=== PATIENT | male | born 1960 | race Caucasian/White ===

== ENCOUNTER → 2017-06-03 | Outpatient (CLI) | payer BC ==
--- NOTE | 2017-06-03 14:30 | Diagnostic Imaging Report ---
PROCEDURE: US carotid duplex, bilateral. TECHNIQUE: Multiple real-time grayscale images were obtained over the carotid arteries in various projections, bilaterally. Additional duplex Doppler and color Doppler images were also obtained. INDICATION: Coronary artery disease. There is mild to moderate plaque identified in the proximal right internal carotid artery. No significant plaque in the left carotid system is identified. There are elevated velocities in the proximal right internal carotid artery reaching 182 cm/s. Both vertebral arteries demonstrate antegrade flow. IMPRESSION: Moderate right carotid plaque. Velocity measurements are consistent with approximately 60-79% diameter stenosis. Dictated by: Dictated on workstation # [id number]
== END ==
LOC: RAD 13:29
PROVIDERS: ATTEND Family Medicine
DX: I65.21 Occlusion and stenosis of right carotid artery (principal); I25.10 Atherosclerotic heart disease of native coronary artery without angina pectoris
CPT/HCPCS: 93880

== ENCOUNTER → 2017-06-19 | Outpatient (CLI) | payer BC | LOC: EDUNIT# 11:00 → CARD 11:01 | PROVIDERS: ATTEND Family Medicine | DX: I25.10 Atherosclerotic heart disease of native coronary artery without angina pectoris (principal); G45.8 Other transient cerebral ischemic attacks and related syndromes | CPT/HCPCS: 93306 ==

== ENCOUNTER → 2017-06-28 | Outpatient (CLI) | payer BC ==
[2017-06-28 08:31] LABS: BASOPHILS # (AUTO) 0.1 10^3/uL (0.0-0.1); BASOPHILS % (AUTO) 1 % (0-10); EOSINOPHILS # (AUTO) 0.5 10^3/uL (0.0-0.3); EOSINOPHILS % (AUTO) 7 % (0-10); HEMATOCRIT 33 % (40-54); HEMOGLOBIN 9.9 G/DL (13.3-17.7); LYMPHOCYTES % (AUTO) 29 % (12-44); MEAN CORPUSCULAR HEMOGLOBIN 22 PG (25-34); MEAN CORPUSCULAR HGB CONC 30 G/DL (32-36); MEAN CORPUSCULAR VOLUME 72 FL (80-99); MONOCYTES # (AUTO) 0.7 X 10^3 (0.0-1.0); MONOCYTES % (AUTO) 10 % (0-12); NEUTROPHILS # (AUTO) 3.5 X 10^3 (1.8-7.8); NEUTROPHILS % (AUTO) 52 % (42-75); PLATELET COUNT 358 10^3/uL (130-400); RED BLOOD COUNT 4.59 10^6/uL (4.35-5.85); RED CELL DISTRIBUTION WIDTH 17.7 % (10.0-14.5); WHITE BLOOD COUNT 6.7 10^3/uL (4.3-11.0)
[2017-06-28 08:54] LABS: ALANINE AMINOTRANSFERASE 17 U/L (0-55); ALBUMIN 4.3 GM/DL (3.2-4.5); ALKALINE PHOSPHATASE 81 U/L (40-136); BILIRUBIN,TOTAL 0.4 MG/DL (0.1-1.0); BUN/CREATININE RATIO 16; CALCIUM 9.1 MG/DL (8.5-10.1); CARBON DIOXIDE 25 MMOL/L (21-32); CHLORIDE 109 MMOL/L (98-107); CHOLESTEROL 102 MG/DL (< 200); CREATININE SERUM 0.91 MG/DL (0.60-1.30); GFR ESTIMATED > 60; GLUCOSE 87 MG/DL (70-105); HDL CHOLESTEROL 42 MG/DL (40-60); POTASSIUM 4.1 MMOL/L (3.6-5.0); SODIUM 142 MMOL/L (135-145); TOTAL PROTEIN 6.9 GM/DL (6.4-8.2); TRIGLYCERIDES 69 MG/DL (<150); VLDL CHOLESTEROL 14 MG/DL (5-40)
[2017-06-28 09:11] LABS: ERYTHROCYTE SEDIMENTATION RATE 20 MM/HR (0-30)
== END ==
LOC: LAB 08:12
PROVIDERS: ATTEND Internal Medicine Cardiovascular Disease
DX: I42.0 Dilated cardiomyopathy (principal); I25.10 Atherosclerotic heart disease of native coronary artery without angina pectoris; I65.23 Occlusion and stenosis of bilateral carotid arteries; Z72.0 Tobacco use
CPT/HCPCS: 36415; 80053; 80061; 83735; 83880; 84443; 85025; 85652

== ENCOUNTER → 2017-08-01 | Outpatient (CLI) | payer BC ==
[~2017-08-01] MED LIST: CATHETER FLUSH 10 ML SYR IV PRN; REGADENOSON 0.4 MG/5 ML SYR (LEXISCAN) IV ONE
[2017-08-01 09:07] VITALS: BP 131/63
[2017-08-01 09:12] VITALS: BP 128/59
--- NOTE | 2017-08-01 14:31 | STRESS TEST ---
DATE OF SERVICE: 08/01/2017 PROCEDURE: Resting and post regadenoson technetium-99m Tetrofosmin SPECT CT imaging. ORDERING PHYSICIAN: Dr. Camara. PRIMARY CARE PHYSICIAN: Dr. Zarco. CLINICAL DIAGNOSES: Coronary artery disease, dilated cardiomyopathy. DESCRIPTION: Baseline images were carried out after injection of 10.7 mCi technetium-99m Tetrofosmin. This was followed by 0.4 mg regadenoson and 28.9 mCi of technetium-99m Tetrofosmin for stress imaging. The electrocardiogram showed sinus rhythm with nonspecific ST and T-wave abnormality. The electrocardiogram did not change significantly with the regadenoson infusion. Isolated premature ventricular contractions were seen. He noted mild shortness of breath following regadenoson infusion, which resolved in a few minutes. Review of images at rest and following stress indicates a large apical perfusion defect that is fixed. Gated images showed apical dyskinesis. Left ventricular end diastolic volume is 197 mL. TID is absent (1.14). Left ventricular ejection fraction is 25%. There is global hypokinesis of left ventricle. CONCLUSIONS: 1. Large apical myocardial infarction with apical dyskinesis and no significant ischemia. 2. Global hypokinesis of left ventricle and apical dyskinesis. 3. Impairment of global left ventricular systolic function with an ejection fraction of 25%. 4. Moderately severe cardiomegaly. Job ID: [id number] DocumentID: [id number] Dictated Date: 08/01/2017 13:57:05 Assistant Professor Surgical Technology Date: 08/01/2017 14:30:36 Dictated By: ANSHU CAMARA MD, MA, FACP, FACC,
== END ==
LOC: CARD 06:50
PROVIDERS: ATTEND Internal Medicine Cardiovascular Disease
DX: I25.10 Atherosclerotic heart disease of native coronary artery without angina pectoris (principal); I42.0 Dilated cardiomyopathy; Z72.0 Tobacco use
CPT/HCPCS: 78452; 93017

== ENCOUNTER → 2017-08-02 | Outpatient (CLI) | payer BC ==
[2017-08-02 10:17] LABS: BASOPHILS # (AUTO) 0.1 10^3/uL (0.0-0.1); BASOPHILS % (AUTO) 1 % (0-10); EOSINOPHILS # (AUTO) 0.3 10^3/uL (0.0-0.3); EOSINOPHILS % (AUTO) 5 % (0-10); HEMATOCRIT 39 % (40-54); HEMOGLOBIN 11.7 G/DL (13.3-17.7); LYMPHOCYTES % (AUTO) 33 % (12-44); MEAN CORPUSCULAR HEMOGLOBIN 23 PG (25-34); MEAN CORPUSCULAR HGB CONC 30 G/DL (32-36); MEAN CORPUSCULAR VOLUME 77 FL (80-99); MEAN PLATELET VOLUME 9.6 FL (7.4-10.4); MONOCYTES # (AUTO) 0.7 X 10^3 (0.0-1.0); MONOCYTES % (AUTO) 12 % (0-12); NEUTROPHILS # (AUTO) 2.9 X 10^3 (1.8-7.8); NEUTROPHILS % (AUTO) 49 % (42-75); PLATELET COUNT 288 10^3/uL (130-400)
[2017-08-02 10:33] LABS: BUN/CREATININE RATIO 10; CALCIUM 9.2 MG/DL (8.5-10.1); CARBON DIOXIDE 26 MMOL/L (21-32); CHLORIDE 107 MMOL/L (98-107); CREATININE SERUM 0.92 MG/DL (0.60-1.30); GFR ESTIMATED > 60; GLUCOSE 92 MG/DL (70-105); MAGNESIUM 2.2 MG/DL (1.8-2.4); SODIUM 142 MMOL/L (135-145)
[2017-08-02 10:40] LABS: DIGOXIN 0.59 NG/ML (0.80-2.00)
== END ==
LOC: LAB 10:04
PROVIDERS: ATTEND Internal Medicine Cardiovascular Disease
DX: I25.10 Atherosclerotic heart disease of native coronary artery without angina pectoris (principal); I65.29 Occlusion and stenosis of unspecified carotid artery; I42.0 Dilated cardiomyopathy; Z72.0 Tobacco use
CPT/HCPCS: 36415; 80048; 80162; 83735; 85025

== ENCOUNTER → 2017-09-17 | Outpatient (CLI) | payer BC ==
[~2017-09-17] MED LIST changes: +ASPI-983 PO; +ASPI-999 PO; +ATOR40TA PO; +CARV12.53 PO; -CATHETER FLUSH 10 ML SYR IV PRN; +CLOP75TA28 PO; +DIGO125T PO; +ENAL10TA PO; +FERR-84 PO; +PANT40TA2 PO; -REGADENOSON 0.4 MG/5 ML SYR (LEXISCAN) IV ONE
[2017-09-17 08:46] LABS: BASOPHILS # (AUTO) 0.1 10^3/uL (0.0-0.1); BASOPHILS % (AUTO) 1 % (0-10); EOSINOPHILS # (AUTO) 0.3 10^3/uL (0.0-0.3); EOSINOPHILS % (AUTO) 4 % (0-10); HEMATOCRIT 42 % (40-54); HEMOGLOBIN 13.8 G/DL (13.3-17.7); LYMPHOCYTES # (AUTO) 1.5 X 10^3 (1.0-4.0); LYMPHOCYTES % (AUTO) 21 % (12-44); MEAN CORPUSCULAR HEMOGLOBIN 27 PG (25-34); MEAN CORPUSCULAR HGB CONC 33 G/DL (32-36); MEAN CORPUSCULAR VOLUME 83 FL (80-99); MEAN PLATELET VOLUME 10.1 FL (7.4-10.4); MONOCYTES # (AUTO) 0.7 X 10^3 (0.0-1.0); MONOCYTES % (AUTO) 10 % (0-12); NEUTROPHILS # (AUTO) 4.6 X 10^3 (1.8-7.8); NEUTROPHILS % (AUTO) 65 % (42-75); PLATELET COUNT 208 10^3/uL (130-400); RED BLOOD COUNT 5.04 10^6/uL (4.35-5.85); RED CELL DISTRIBUTION WIDTH 23.2 % (10.0-14.5); WHITE BLOOD COUNT 7.1 10^3/uL (4.3-11.0)
[2017-09-17 09:05] LABS: BUN/CREATININE RATIO 11; CALCIUM 8.9 MG/DL (8.5-10.1); CARBON DIOXIDE 24 MMOL/L (21-32); CHLORIDE 109 MMOL/L (98-107); CREATININE SERUM 0.94 MG/DL (0.60-1.30); GFR ESTIMATED > 60; GLUCOSE 97 MG/DL (70-105); MAGNESIUM 2.5 MG/DL (1.8-2.4); POTASSIUM 4.4 MMOL/L (3.6-5.0); SODIUM 142 MMOL/L (135-145)
[2017-09-17 09:13] LABS: DIGOXIN < 0.30 NG/ML (0.80-2.00)
== END ==
LOC: CARD 08:27
PROVIDERS: ATTEND Internal Medicine Cardiovascular Disease
DX: I25.10 Atherosclerotic heart disease of native coronary artery without angina pectoris (principal); I50.22 Chronic systolic (congestive) heart failure; I42.0 Dilated cardiomyopathy; I65.23 Occlusion and stenosis of bilateral carotid arteries; Z72.0 Tobacco use; I34.0 Nonrheumatic mitral (valve) insufficiency
CPT/HCPCS: 36415; 80048; 80162; 83735; 85025; 93306

== ENCOUNTER 2017-09-24 12:05 | Day surgery (SDC) | payer BC ==
[2017-09-24] VITALS (11 sets, daily range): BP systolic 117–148; BP diastolic 56–81
[~2017-09-24] VITALS: Ht 182.9 cm; Wt 82.7 kg
[2017-09-24] MEDS ORDERED: NS IV 1000 ML 3,000 ML ONE (12:12)
--- OUTSIDE RECORDS SUMMARY | 2017-09-24 12:14 | XMS REPORT | Clinical Summary ---
Author Author Admin, [facility] Organization [facility] Address Unknown Phone Unavailable Allergies, Adverse Reactions, Alerts Allergy Name Reaction Description Start Date Severity Status Provider Allergies Unknown Conditions or Problems Problem Name Problem Code Onset Date Status Entry Date Provider Comment Standard Description Annotate HEALTH EXAMINATION OF DEFINED SUBPOPULATION V70.5 Active Lisa Lamar Health examination of defined subpopulations Medication List Medication Instructions Start Date Stop Date Generic Name NDC Status Provider Patient Instruction Drug Treatment Unknown - unknown Procedures Code Procedure Name Date Entry Date Standard Description CPT-29020 Spec Collection and Handling Fee 10:38:01 CDT
--- OUTSIDE RECORDS SUMMARY | 2017-09-24 12:14 | XMS REPORT | Continuity of Care Document ---
Author Author [facility] Organization [facility] Address Unknown Phone Unavailable Allergies Active Description Code Type Severity Reaction Onset Reported/Identified Relationship to Patient Clinical Status Yes No Allergy Information Available [id number] Drug Allergy Unknown N/A 2017 Medications There is no data. Problems Date Dx Coded Attending Type Code Diagnosis Diagnosed By 06/04/2017 SHAWNA DOMINGO MD Ot I25.10 ATHSCL HEART DISEASE OF [place] CORONARY 06/04/2017 SHAWNA DOMINGO MD Ot 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 06/13/2017 SHAWNA DOMINGO MD Ot I25.10 ATHSCL HEART DISEASE OF [place] CORONARY 06/13/2017 SHAWNA DOMINGO MD Ot 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 06/19/2017 SHAWNA DOMINGO MD Ot I25.10 ATHSCL HEART DISEASE OF [place] CORONARY 06/19/2017 SHAWNA DOMINGO MD Ot 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 06/20/2017 SHAWNA DOMINGO MD Ot G45.8 OTH TRANSIENT CEREBRAL ISCHEMIC ATTACKS 06/20/2017 SHAWNA DOMINGO MD Ot I25.10 ATHSCL HEART DISEASE OF [place] CORONARY 06/20/2017 SHAWNA DOMINGO MD Ot G45.8 OTH TRANSIENT CEREBRAL ISCHEMIC ATTACKS 06/20/2017 SHAWNA DOMINGO MD Ot I25.10 ATHSCL HEART DISEASE OF [place] CORONARY 07/02/2017 RACHID OCAMPO FACC, ANSHU FACP CCDS Ot I25.10 ATHSCL HEART DISEASE OF [place] CORONARY 07/02/2017 RACHID OCAMPO FACC, ALI FACP CCDS Ot I42.0 DILATED CARDIOMYOPATHY 07/02/2017 RACHID OCAMPO FACC, ALI FACP CCDS Ot I65.23 OCCLUSION AND STENOSIS OF BILATERAL [place] 07/02/2017 RACHID OCAMPO FACC, ALI FACP CCDS Ot Z72.0 TOBACCO USE 07/03/2017 SHAWNA DOMINGO MD Ot G45.8 OTH TRANSIENT CEREBRAL ISCHEMIC ATTACKS 07/03/2017 CHAYO MD, SHAWNA C Ot I25.10 ATHSCL HEART DISEASE OF [place] CORONARY 07/11/2017 RACHID OCAMPO FACC, ALI FACP CCDS Ot I25.10 ATHSCL HEART DISEASE OF [place] CORONARY 07/11/2017 RACHID OCAMPO FACC, ALI FACP CCDS Ot I42.0 DILATED CARDIOMYOPATHY 07/11/2017 RACHID OCAMPO FACC, ALI FACP CCDS Ot I65.23 OCCLUSION AND STENOSIS OF BILATERAL [place] 07/11/2017 RACHID OCAMPO FACC, ALI FACP CCDS Ot Z72.0 TOBACCO USE 08/01/2017 RACHID OCAMPO FACC, ALI FACP CCDS Ot I25.10 ATHSCL HEART DISEASE OF [place] CORONARY 08/01/2017 RACHID OCAMPO FACC, ALI FACP CCDS Ot I42.0 DILATED CARDIOMYOPATHY 08/01/2017 RACHID OCAMPO FACC, ALI FACP CCDS Ot Z72.0 TOBACCO USE 08/01/2017 RACHID OCAMPO FACC, ALI FACP CCDS Ot I25.10 ATHSCL HEART DISEASE OF [place] CORONARY 08/01/2017 RACHID OCAMPO FACC, ALI FACP CCDS Ot I42.0 DILATED CARDIOMYOPATHY 08/01/2017 RACHID OCAMPO FACC, ALI FACP CCDS Ot Z72.0 TOBACCO USE 08/05/2017 RACHID OCAMPO FACC, ALI FACP CCDS Ot I25.10 ATHSCL HEART DISEASE OF [place] CORONARY 08/05/2017 RACHID OCAMPO FACC, ALI FACP CCDS Ot I42.0 DILATED CARDIOMYOPATHY 08/05/2017 RACHID OCAMPO FACC, ALI FACP CCDS Ot I65.29 OCCLUSION AND STENOSIS OF UNSPECIFIED [place] 08/05/2017 RACHID OCAMPO FACC, ALI FACP CCDS Ot Z72.0 TOBACCO USE 08/08/2017 RACHID OCAMPO FACC, ALI FACP CCDS Ot I25.10 ATHSCL HEART DISEASE OF [place] CORONARY 08/08/2017 RACHID OCAMPO FACC, ALI FACP CCDS Ot I42.0 DILATED CARDIOMYOPATHY 08/08/2017 RACHID OCAMPO FACC, ALI FACP CCDS Ot I65.29 OCCLUSION AND STENOSIS OF UNSPECIFIED [place] 08/08/2017 RACHID OCAMPO FACC, ALI FACP CCDS Ot Z72.0 TOBACCO USE 08/09/2017 RACHID OCAMPO FACC, ALI FACP CCDS Ot I25.10 ATHSCL HEART DISEASE OF [place] CORONARY 08/09/2017 RACHID OCAMPO FACC, ALI FACP CCDS Ot I42.0 DILATED CARDIOMYOPATHY 08/09/2017 RACHID OCAMPO FACC, ALI FACP CCDS Ot Z72.0 TOBACCO USE 08/22/2017 RACHID OCAMPO FACC, ALI FACP CCDS Ot I25.10 ATHSCL HEART DISEASE OF [place] CORONARY 08/22/2017 RACHID OCAMPO FACC, ALI FACP CCDS Ot I42.0 DILATED CARDIOMYOPATHY 08/22/2017 RACHID OCAMPO FACC, ALI FACP CCDS Ot Z72.0 TOBACCO USE 09/17/2017 SHAWNA DOMINGO MD Ot I25.10 ATHSCL HEART DISEASE OF [place] CORONARY 09/17/2017 SHAWNA DOMINGO MD Ot 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 09/17/2017 SHAWNA DOMINGO MD Ot G45.8 OTH TRANSIENT CEREBRAL ISCHEMIC ATTACKS 09/17/2017 SHAWNA DOMINGO MD Ot I25.10 ATHSCL HEART DISEASE OF [place] CORONARY 09/17/2017 RACHID OCAMPO FACC, ALI FACP CCDS Ot I25.10 ATHSCL HEART DISEASE OF [place] CORONARY 09/17/2017 RACHID HERNANDEZC, ALI FACP CCDS Ot I42.0 DILATED CARDIOMYOPATHY 09/17/2017 RACHID HERNANDEZC, ALI FACP CCDS Ot I65.23 OCCLUSION AND STENOSIS OF [place]ILATERAL [place] 09/17/2017 RACHID OCAMPO FACC, ALI FACP CCDS Ot Z72.0 TOBACCO USE 09/17/2017 RACHID HERNANDEZC, ALI FACP CCDS Ot I25.10 ATHSCL HEART DISEASE OF [place] CORONARY 09/17/2017 RACHID OCAMPO FACC, ALI FACP CCDS Ot I42.0 DILATED CARDIOMYOPATHY 09/17/2017 RACHID OCAMPO FACC, ALI FACP CCDS Ot Z72.0 TOBACCO USE 09/17/2017 RACHID OCAMPO FACC, ALI FACP CCDS Ot I25.10 ATHSCL HEART DISEASE OF [place] CORONARY 09/17/2017 RACHID OCAMPO FACC, ALI FACP CCDS Ot I42.0 DILATED CARDIOMYOPATHY 09/17/2017 RACHID OCAMPO FACC, ALI FACP CCDS Ot Z72.0 TOBACCO USE 09/19/2017 RACHID OCAMPO FACC, ALI FACP CCDS Ot I25.10 ATHSCL HEART DISEASE OF [place] CORONARY 09/19/2017 RACHID OCAMPO FACC, ALI FACP CCDS Ot I34.0 NONRHEUMATIC MITRAL (VALVE) INSUFFICIENC 09/19/2017 RACHID OCAMPO FACC, ALI FACP CCDS Ot I42.0 DILATED CARDIOMYOPATHY 09/19/2017 RACHID OCAMPO FACC, ALI FACP CCDS Ot I50.22 CHRONIC SYSTOLIC (CONGESTIVE) HEART FAIL 09/19/2017 RACHID OCAMPO FACC, ALI FACP CCDS Ot I65.29 OCCLUSION AND STENOSIS OF UNSPECIFIED [place] 09/19/2017 RACHID OCAMPO FACC, ALI FACP CCDS Ot Z72.0 TOBACCO USE Procedures There is no data. Results There is no data. Encounters ACCT No. Visit Date/Time Discharge Status Pt. Type Provider Facility Loc./Unit Complaint [id number] 04/17/2017 14:16:02 ACT Unknown [id number] 09/17/2017 08:27:00 09/17/2017 23:59:59 CLS Outpatient RACHID OCAMPO FACC, ALI FACP CCDS [facility] CARD I25.10 CAD [id number] 08/02/2017 10:04:00 08/02/2017 23:59:59 CLS Outpatient RACHID OCAMPO FACC, ALI FACP CCDS [facility] LAB I25.10 I65.23 I42.0 Z72.0 [id number] 08/01/2017 06:50:00 08/01/2017 23:59:59 CLS Outpatient RACHID OCAMPO FACC, ALI FACP CCDS [facility] CARD CAD [id number] 06/28/2017 08:12:00 06/28/2017 23:59:59 CLS Outpatient RACHID OCAMPO FACC, ALI FACP CCDS [facility] LAB I42.0 [id number] 06/19/2017 11:01:00 06/19/2017 23:59:59 CLS Outpatient SHAWNA DOMINGO MD [facility] CARD CORONARY ARTERY DISEASE [id number] 06/03/2017 13:29:00 06/03/2017 23:59:59 CLS Outpatient SHAWNA DOMINGO MD [facility] RAD G45.8 CORONARY ARTERY DISEASE
--- OUTSIDE RECORDS SUMMARY | 2017-09-24 12:14 | XMS REPORT | Clinical Summary ---
Author Author Admin, [facility] Organization [facility] Address Unknown Phone Unavailable Allergies, Adverse Reactions, [...] Procedure Name Date Entry Date Standard Description CPT-52032 Spec Collection and Handling Fee 10:38:01 CDT
[2017-09-24] MEDS ORDERED: LIDOCAINE 1% INJ 20 ML 20 ML VIAL ONE (12:40)
[2017-09-24] MEDS ORDERED: HEParin 1000 UNIT/ML (10ML VIAL) FOR BOLUS ONE (12:40)
[2017-09-24] MEDS ORDERED: RECEIVED CONTRAST (Hold Metformin) IV SCH (12:45)
[2017-09-24] MEDS: NS IV 1000 ML 1,000 ML IV SCH ×3 (12:50→21:10)
[2017-09-24 12:53] LABS: MEAN PLATELET VOLUME 9.8 FL (7.4-10.4); RED BLOOD COUNT 5.01 10^6/uL (4.35-5.85); RED CELL DISTRIBUTION WIDTH 22.4 % (10.0-14.5); WHITE BLOOD COUNT 5.4 10^3/uL (4.3-11.0)
[2017-09-24 13:06] LABS: INR 1.1 (0.8-1.4); PROTHROMBIN TIME PATIENT 13.8 SEC (12.2-14.7)
[2017-09-24] MEDS ORDERED: ATOR40TA PO (13:09)
[2017-09-24] MEDS ORDERED: PANT40TA2 PO (13:09)
[2017-09-24] MEDS ORDERED: ASPI-983 PO (13:09)
[2017-09-24] MEDS ORDERED: FERR-84 PO (13:09)
[2017-09-24] MEDS ORDERED: CARV12.53 PO (13:09)
[2017-09-24] MEDS ORDERED: DIGO125T PO (13:09)
[2017-09-24] MEDS ORDERED: ENAL10TA PO (13:09)
[2017-09-24 13:21] LABS: ALANINE AMINOTRANSFERASE 20 U/L (0-55); ALBUMIN 4.2 GM/DL (3.2-4.5); ALKALINE PHOSPHATASE 75 U/L (40-136); BILIRUBIN,TOTAL 0.4 MG/DL (0.1-1.0); BUN/CREATININE RATIO 11; CALCIUM 9.1 MG/DL (8.5-10.1); CARBON DIOXIDE 23 MMOL/L (21-32); CHLORIDE 108 MMOL/L (98-107); CHOLESTEROL 100 MG/DL (< 200); GFR ESTIMATED > 60; GLUCOSE 94 MG/DL (70-105); HDL CHOLESTEROL 41 MG/DL (40-60); POTASSIUM 4.1 MMOL/L (3.6-5.0); SODIUM 140 MMOL/L (135-145); TOTAL PROTEIN 6.4 GM/DL (6.4-8.2); TRIGLYCERIDES 64 MG/DL (<150); VLDL CHOLESTEROL 13 MG/DL (5-40)
[2017-09-24] MEDS ORDERED: MIDAZOLAM 5 MG/5 ML (VERSED) VIAL ONE (13:52)
[2017-09-24] MEDS ORDERED: diphenhydrAMINE 50 MG/ML INJ (BENADRYL) ONE (13:52)
[2017-09-24] MEDS ORDERED: fentaNYL INJECTION 100 MCG/2 ML AMP ONE (13:52)
--- NOTE | 2017-09-24 14:28 | Cardiac Procedure Note-CS/ASA ---
Pre-Procedure Note Pre-Op Procedure Note H&P Reviewed The H&P was reviewed, patient examined and no changes noted. Date H&P Reviewed: September 24, 2017 Time H&P Reviewed: 14:27 Conscious Sedation Pre-Proced Time Reviewed: 14:27 ASA Class: 3 Airway Mallampati Classification: ([place] appropriate class) I. II. III, IV Lungs Heart ASA score ASA 1: a normal healthy patient ASA 2: a patient with a mild systemic disease (mid diabetes, controlled hypertension, obesity ASA 3: a patient with a severe systemic disease that limits activity (angina , COPD, prior Myocardial infarction) ASA 4: a patient with an incapacitating disease that is a constant threat to life (CHF, renal failure) ASA 5: a moribund patient not expected to survive 24 hrs. (ruptured aneurysm) ASA 6: a declared brain patient whose organs are being harvested. For emergent operations, add the letter E after the classification Grade 2 Sedation Plan: Analgesia, Amnesia, Plan communicated to team members, Discussed options with patient/fam, Discussed risks with patient/fam Note The patient is an appropriate candidate to undergo the planned procedure, sedation, and anesthesia. The patient immediately re-assessed prior to indication. ANSHU RASHID MD FACP FAC CCDS September 24, 2017 14:28
[2017-09-24] MEDS ORDERED: EPTIFIBATIDE BOLUS 20 ML IV ONE (14:36)
[2017-09-24] MEDS ORDERED: NITRO DRIP 25000 MCG/D5W 250 ML IV ONE (14:44)
[2017-09-24] MEDS ORDERED: PATIENT MAY USE OWN MEDS, ALL PO SCH (16:15)
[2017-09-24] MEDS ORDERED: ASPIRIN 81 MG CHEW (CHILDREN'S ASA) PO ONE (16:15)
[2017-09-24] MEDS ORDERED: CLOPIDOGREL 300 MG (PLAVIX) TABLET PO ONE (16:15)
[2017-09-24] MEDS ORDERED: ASPIRIN 325 MG (5 GR) TABLET ONE (16:53)
[2017-09-24] MEDS ORDERED: CLOPIDOGREL 75 MG (PLAVIX) TABLET ONE ×2 (16:53→16:56)
[2017-09-24] MEDS ORDERED: ASPIRIN E.C. 81 MG (ECOTRIN) TAB PO ONE (16:59)
--- NOTE | 2017-09-24 20:09 | CARDIAC CATHETERIZATION ---
DATE OF SERVICE: 09/24/2017 CARDIAC CATHETERIZATION AND CORONARY INTERVENTION REPORT The patient is a 57-year-old man with a history of coronary artery disease. He had coronary stenting followed by stent thrombosis followed by percutaneous intervention in 2005. This was done in a different state. He began followup in our office recently. He was found to have marked ischemic cardiomyopathy. With optimization of medical therapy, ejection fraction is improved, but is still 30% to 35%. Cardiac catheterization was carried out today to evaluate for a continued ischemic source for cardiomyopathy. Informed consent was obtained for cardiac catheterization and possible ad hoc coronary intervention. DESCRIPTION OF PROCEDURE: He was brought to the cardiac catheterization laboratory in a fasting state. Right groin was prepared and draped in usual sterile fashion. Lidocaine 1% local anesthesia. Modified Seldinger technique was used to advance a 5-[place] sheath into the right femoral artery. A 5-[place] JL3.5 catheter was used for left coronary angiography and 5-[place] JR4 catheter was used for right coronary angiography. A 5-[place] pigtail catheter was used for left heart catheterization and left ventricular angiography. PERCUTANEOUS INTERVENTION TO THE LEFT ANTERIOR DESCENDING ARTERY: Following completion of the diagnostic procedure, we carried out percutaneous intervention to the left anterior descending artery where the patient was found to have 99% stenosis in the mid right coronary artery within an old stent and distal to the stent. We exchanged the sheath over a wire for a 6-[place] sheath. We used a 6-[place] JL3.5 guide catheter with side holes. We used a BMW wire across this lesion in the mid left anterior descending artery and the tip was placed in the distal vessel. We carried out balloon angioplasty with Emerge 2.0 x 20 mm balloon. Multiple balloon inflations were carried out. This reduced the stenosis from 99% to less than 30% within the stent, but there still was approximately 70% stenosis distal to the stent. In the mid left anterior descending artery, distal to the stent, we advanced an Alpine Xience 2.25 x 12 mm stent. This was carefully positioned to cover the lesion and the proximal portion of this stent slightly overlaps the distal portion of the old stent. This stent was deployed at 14 atmospheres. Subsequent angiography revealed 0% residual stenosis at the previous site of 70% stenosis in the mid left anterior descending artery. We used the same balloon to carry out multiple balloon angioplasty throughout the course of the old stent, as well, including the area of overlap. Subsequent angiography revealed less than 30% residual stenosis in the old stent and no significant residual stenosis at the site of new stent implantation. Flow throughout the vessel is normal. He tolerated the procedure well. Angiography of the right femoral artery was carried out through the sheath. Mynx was used to achieve hemostasis following sheath removal. He tolerated the procedure well. HEMODYNAMICS: Left ventricular end-diastolic pressure following coronary angiography was 8 mmHg. There is no significant pressure gradient on pullback across the aortic valve. Ascending aortic pressure is 123/60 with a mean of 85 mmHg. LEFT VENTRICULAR ANGIOGRAPHY: Left ventricular angiography was carried out in the right anterior oblique projection. There is apical akinesis and dyskinesis. Left ventricular ejection fraction of 30% to 35%. There does not appear to be significant mitral regurgitation. CORONARY ANGIOGRAPHY: There is approximately 30% to 40% ostial stenosis of the left main coronary artery. There was 99% stenosis in the mid left anterior descending artery stent. The left anterior descending artery just distal to the stent had another 90% stenosis. Balloon angioplasty was carried out to the standard portion of the left anterior descending artery with reduction of stenosis to less than 30%. The de jose lesion in the mid left anterior descending artery was stented with Alpine Xience 2.5 x 12 mm stent and the stent slightly overlaps the old stent. This reduced the stenosis to 0% residual. The left circumflex artery has 50% to 60% stenosis in its mid to distal portion, including the second obtuse marginal branch. The right coronary artery is dominant and has mild diffuse plaques. CONCLUSION: 1. Coronary artery disease, primarily consisting of 99% in-stent restenosis in the mid left anterior descending artery to which successful balloon angioplasty was carried out and which reduced the stenosis to less than 30%. The mid left anterior descending artery had 90% stenosis to which successful stenting was carried out (Alpine Xience 2.25 x 12 mm) with reduction of stenosis to 0% residual. The left circumflex artery has moderate mid vessel disease. The right coronary artery has mild diffuse disease. The ostial left main coronary artery has approximately 30% to 40% stenosis. 2. Impairment of global left ventricular systolic function with apical akinesis, dyskinesis and left ventricular ejection fraction of 30% to 35%. 3. Normal left ventricular end-diastolic pressure. 4. No significant mitral regurgitation. DISCUSSION AND RECOMMENDATIONS: Current regimen consisting of aspirin, beta-blockers and MARIBEL inhibitors are being continued. Plavix has been added. He has been hospitalized after today's intervention for observation. Job ID: [id number] DocumentID: [id number] Dictated Date: 09/24/2017 15:55:46 Payroll Consultant Date: 09/24/2017 20:08:51 Dictated By: ANSHU RASHID MD, MA, FACP, FACC, MTDD
[2017-09-24] MEDS ORDERED: ATORVASTATIN 40 MG (LIPITOR) TABLET PO SCH (21:00)
[2017-09-24] MEDS ORDERED: CARVEDILOL 12.5 MG (COREG) TABLET PO SCH (21:00)
[2017-09-24] MEDS: ENALAPRIL 10 MG (VASOTEC) TAB PO SCH (21:04)
[2017-09-24] MEDS: CARVEDILOL 12.5 MG (COREG) TABLET PO SCH (21:06)
[2017-09-25 00:05] VITALS: BP 128/62
[2017-09-25 04:30] VITALS: BP 130/65
[2017-09-25] MEDS: FERROUS SULF 325 MG (IRON) TAB PO SCH ×2 (06:08→17:13)
[2017-09-25 06:10] LABS: HEMOGLOBIN 12.9 G/DL (13.3-17.7); MEAN PLATELET VOLUME 9.9 FL (7.4-10.4); RED BLOOD COUNT 4.65 10^6/uL (4.35-5.85); RED CELL DISTRIBUTION WIDTH 22.2 % (10.0-14.5); WHITE BLOOD COUNT 4.9 10^3/uL (4.3-11.0)
[2017-09-25 06:34] LABS: BUN/CREATININE RATIO 11; CALCIUM 8.1 MG/DL (8.5-10.1); CARBON DIOXIDE 22 MMOL/L (21-32); CHLORIDE 109 MMOL/L (98-107); CREATININE SERUM 0.79 MG/DL (0.60-1.30); GFR ESTIMATED > 60; GLUCOSE 81 MG/DL (70-105); POTASSIUM 3.6 MMOL/L (3.6-5.0); SODIUM 140 MMOL/L (135-145)
[2017-09-25 06:42] LABS: DIGOXIN 0.36 NG/ML (0.80-2.00)
[2017-09-25 08:49] VITALS: BP 123/71
[2017-09-25] MEDS ORDERED: DIGOXIN 0.125 MG (LANOXIN) TAB PO SCH (09:00)
[2017-09-25] MEDS ORDERED: ASPIRIN 81 MG CHEW (CHILDREN'S ASA) PO SCH (09:00)
[2017-09-25] MEDS ORDERED: PANTOPRAZOLE 40 MG (PROTONIX) TAB PO SCH (09:00)
--- NOTE | 2017-09-25 12:16 | Progress Note-Cardiology ---
Cardiology SOAP Progress Note Subjective: Feels well today. No cp or palp or syncope or shortness of breath or groin discomfort Objective: I&O/Vital Signs 09/25/17 09/25/17 09/25/17 09/25/17 01:00 04:30 07:00 08:49 Temp 98.9 96.5 Pulse 57 63 63 61 Resp 18 16 B/P (MAP) 130/65 (86) 123/71 (88) Pulse Ox 93 97 O2 Delivery Room Air Room Air 09/25/17 00:00 Intake Total 1350 ml Output Total 300 ml Balance 1050 ml Weight (Pounds): 182 Weight (Ounces): 5.0 Weight (Calculated Kilograms): [id number] Groin site without hematoma: Yes Bruising: mild bruising Constitutional: AAO x 3, well-developed, well-nourished Respiratory: No accessory muscle use; lungs clear to percussion, lungs clear to auscultation Cardiovascular: regular rate-rhythm, S1 and S2, systolic murmur (soft SAVANAH at card base) Gastrointestional: No tender; soft; No guarding, No rebound; audible bowel sounds Extremities: No clubbing, No cyanosis Neurologic/Psychiatric: oriented x 3, grossly intact, power is 5/5 both on sides Skin: No rash on exposed areas, No ulcerations on exposed areas Results/Procedures: Labs Laboratory Tests 09/24/17 12:42: White Blood Count 5.4, Red Blood Count 5.01, Hemoglobin 14.0, Hematocrit 42, Mean Corpuscular Volume 83, Mean Corpuscular Hemoglobin 28, Mean Corpuscular Hemoglobin Concent 34, Red Cell Distribution Width 22.4H, Platelet Count 205, Mean Platelet Volume 9.8, Prothrombin Time 13.8, INR Comment 1.1, Activated Partial Thromboplast Time 29, Sodium Level 140, Potassium Level 4.1, Chloride Level 108H, Carbon Dioxide Level 23, Anion Gap 9, Blood Urea Nitrogen 10, Creatinine 0.90, Estimat Glomerular Filtration Rate > 60, BUN/Creatinine Ratio 11, Glucose Level 94, Calcium Level 9.1, Total Bilirubin 0.4, Aspartate Amino Transf (AST/SGOT) 20, Alanine Aminotransferase (ALT/SGPT) 20, Alkaline Phosphatase 75, Total Protein 6.4, Albumin 4.2, Triglycerides Level 64, Cholesterol Level 100, LDL Cholesterol Direct 45, VLDL Cholesterol 13, HDL Cholesterol 41 09/25/17 05:28: White Blood Count 4.9, Red Blood Count 4.65, Hemoglobin 12.9L, Hematocrit 39L, Mean Corpuscular Volume 84, Mean Corpuscular Hemoglobin 28, Mean Corpuscular Hemoglobin Concent 33, Red Cell Distribution Width 22.2H, Platelet Count 167, Mean Platelet Volume 9.9, Sodium Level 140, Potassium Level 3.6, Chloride Level 109H, Carbon Dioxide Level 22, Anion Gap 9, Blood Urea Nitrogen 9, Creatinine 0.79, Estimat Glomerular Filtration Rate > 60, BUN/Creatinine Ratio 11, Glucose Level 81, Calcium Level 8.1L, Digoxin Level 0.36L Laboratory Tests 09/24/17 12:42 09/25/17 05:28 A/P: Assessment: CAD. Last card cath of 09/24/17 showed 99% in-stent restenosis in the mid left anterior descending artery to which successful balloon angioplasty was carried out and which reduced the stenosis to less than 30%. The mid left anterior descending artery had 90% stenosis to which successful stenting was carried out (Alpine Xience 2.25 x 12 mm) with reduction of stenosis to 0% residual. The left circumflex artery has moderate mid vessel disease. The right coronary artery has mild diffuse disease. The ostial left main coronary artery has approximately 30% to 40% stenosis. Impairment of global left ventricular systolic function with apical akinesis, dyskinesis and left ventricular ejection fraction of 30% to 35%. Normal left ventricular end-diastolic pressure. No significant mitral regurgitation. Previos h/o CAD: LAD stent (3.0 x 16 Taxus) at [facility] in [place], [place] in Jan 2006 following [place]; subsequently PTCA for stent thrombosis of that stent in May 2006 at the same hosp. LVEF reported to be 40% (with anterior hypo) on cath of 2006 Echo of 09/17/17 showed LVEF 30-35%, ajit of mid ant, anteroseptal and apical riley, mild MR, PASP 35 mmHg, Previous echo of 06/19/17 showed cardiomeg with LVEF 15-20% and grade I martinez dysfunction and nromal PASP MPI of 08/01/17: large apical [place], apical dyskinesis, mod sev cardiomegaly, LVEF 25% Carotid arterial disease. Carotid u/s of 06/03/17 at [place], [place] showed 60-79% R ICA stenosis Chronic systolic CHF Hyperlipidemia, by histrory Abnormal ECG. ECG of 06/27/17 shows NSR with occ PVC and nonspecific ST abn Microcytic, hypochromic anemia on blood work of 06/28/17, followed by Dr Zarco , improved on blood work of 09/17/17 Plan: * Complex management * I discussed with him and his in detail the cath findings and the interventions undertaken yesterday. Following the PCI, we need to wait another 3 months and reeval EF before reconsidering ICD placement. Meanwhile, we again recommended LifeVest. He agrees. We are making arrangement * Continue current regimen. Plavix has been added to the regimen ANSHU RASHID MD FACP FACC CCDS September 25, 2017 12:16
[2017-09-25 12:48] VITALS: BP 145/74
[2017-09-25 15:25] VITALS: BP 120/58
[2017-09-25] MEDS: CLOPIDOGREL 75 MG (PLAVIX) TABLET PO SCH (17:00)
[2017-09-25] MEDS: NS IV 1000 ML 1,000 ML IV SCH (17:01)
[2017-09-25] MEDS: ENALAPRIL 10 MG (VASOTEC) TAB PO SCH ×2 (17:13→20:52)
[2017-09-25] MEDS: CARVEDILOL 12.5 MG (COREG) TABLET PO SCH ×2 (17:13→20:53)
[2017-09-25 19:15] VITALS: BP 132/61
[2017-09-25] MEDS ORDERED: ATORVASTATIN 40 MG (LIPITOR) TABLET PO SCH (21:00)
[2017-09-26] VITALS: BP 120/67
[2017-09-26 03:31] VITALS: BP 115/63
[2017-09-26] MEDS: FERROUS SULF 325 MG (IRON) TAB PO SCH (06:24)
[2017-09-26] MEDS ORDERED: PANTOPRAZOLE 40 MG (PROTONIX) TAB PO SCH (07:00)
[2017-09-26 08:07] VITALS: BP 120/73
[2017-09-26] MEDS: ENALAPRIL 10 MG (VASOTEC) TAB PO SCH (08:07)
[2017-09-26] MEDS: CARVEDILOL 12.5 MG (COREG) TABLET PO SCH (08:08)
[2017-09-26] MEDS: CLOPIDOGREL 75 MG (PLAVIX) TABLET PO SCH (08:09)
--- NOTE | 2017-09-26 08:43 | Progress Note-Cardiology ---
Cardiology SOAP Progress Note Subjective: Feels well. No cp or palp or syncope or shortness of breath or groin discomfort Objective: I&O/Vital Signs 09/26/17 09/26/17 09/26/17 09/26/17 00:00 01:00 03:31 08:07 Temp 97.4 97.8 99.0 Pulse 66 62 70 63 Resp 19 19 20 B/P (MAP) 120/67 (84) 115/63 (80) 120/73 (89) Pulse Ox 95 96 97 O2 Delivery Room Air Room Air Room Air 09/26/17 00:00 Intake Total 2520 ml Output Total 1 ml Balance 2519 ml Weight (Pounds): 182 Weight (Ounces): 6.4 Weight (Calculated Kilograms): 82.473617 Groin site without hematoma: Yes Bruising: mild bruising Constitutional: AAO x 3, well-developed, well-nourished Respiratory: No accessory muscle use; lungs clear to percussion, lungs clear to auscultation Cardiovascular: regular rate-rhythm, S1 and S2, systolic murmur (soft SAVANAH at card base) Gastrointestional: No tender; soft; No guarding, No rebound; audible bowel sounds Extremities: No clubbing, No cyanosis Neurologic/Psychiatric: oriented x 3, grossly intact, power is 5/5 both on sides Skin: No rash on exposed areas, No ulcerations on exposed areas Results/Procedures: Labs Microbiology 09/24/17 MRSA Screen - Final, Complete MRSA not isolated Laboratory Tests 09/24/17 12:42 09/25/17 05:28 A/P: Assessment: CAD. Last card cath of 09/24/17 showed 99% in-stent restenosis in the mid left anterior descending artery to which successful balloon angioplasty was carried out and which reduced the stenosis to less than 30%. The mid left anterior descending artery had 90% stenosis to which successful stenting was carried out (Alpine Xience 2.25 x 12 mm) with reduction of stenosis to 0% residual. The left circumflex artery has moderate mid vessel disease. The right coronary artery has mild diffuse disease. The ostial left main coronary artery has approximately 30% to 40% stenosis. Impairment of global left ventricular systolic function with apical akinesis, dyskinesis and left ventricular ejection fraction of 30% to 35%. Normal left ventricular end-diastolic pressure. No significant mitral regurgitation. Previous h/o CAD: LAD stent (3.0 x 16 Taxus) at [facility] in [place], [place] in Jan 2006 following [place]; subsequently PTCA for stent thrombosis of that stent in May 2006 at the same hosp. LVEF reported to be 40% (with anterior hypo ) on cath of 2006 S/p Life Vest for ischemic cardiomyopathy Echo of 09/17/17 showed LVEF 30-35%, ajit of mid ant, anteroseptal and apical riley, mild MR, PASP 35 mmHg, Previous echo of 06/19/17 showed cardiomeg with LVEF 15-20% and grade I martinez dysfunction and nromal PASP MPI of 08/01/17: large apical AK, apical dyskinesis, mod sev cardiomegaly, LVEF 25% Carotid arterial disease. Carotid u/s of 06/03/17 at [place], [place] showed 60-79% R ICA stenosis Chronic systolic CHF Hyperlipidemia, by histrory Abnormal ECG. ECG of 06/27/17 shows NSR with occ PVC and nonspecific ST abn Microcytic, hypochromic anemia on blood work of 06/28/17, followed by Dr Zarco , improved on blood work of 09/17/17 Plan: * Complex management * Awaiting Life Vest placement. Then d/c with outpatient f/u * Continue current regimen. Plavix has been added to the regimen * I discussed his CV issues with him and answered questions ANSHU RASHID MD FACP [facility] September 26, 2017 08:43
[2017-09-26] MEDS ORDERED: ASPI-999 PO (08:45)
[2017-09-26] MEDS ORDERED: CLOP75TA28 PO (08:45)
--- NOTE | 2017-09-26 08:46 | Discharge Inst-Cardiology ---
Discharge Inst-Cardiac Discharge Medications New Medications: Aspirin (Aspirin) 81 Mg Tab.chew 81 MG PO DAILY for 90 Days, #90 TAB 3 Refills Clopidogrel Bisulfate (Clopidogrel) 75 Mg Tablet 75 MG PO DAILY for 90 Days, #90 TAB 3 Refills Continued Medications: Atorvastatin Calcium (Lipitor) 40 Mg Tablet 40 MG PO HS, TAB Carvedilol (Carvedilol) 12.5 Mg Tablet 25 MG PO BID, TAB TAKES 2 (12.5MG) TABLETS Digoxin (Digoxin) 125 Mcg Tablet 125 MCG PO DAILY, TAB Enalapril Maleate (Enalapril Maleate) 10 Mg Tablet 10 MG PO BID, TAB Ferrous Sulfate (Iron) 325 Mg Tablet 325 MG PO BID, TAB Pantoprazole Sodium (Protonix) 40 Mg Tablet.dr 40 MG PO DAILY, TAB Discontinued Medications: Aspirin (Aspirin EC) 81 Mg Tablet.dr 81 MG PO DAILY, TAB Orders-Post D/C & Referrals Pneu Vac Indicated: Yes ANSHU RASHID MD FACP [facility]AC [facility] September 26, 2017 08:46
--- NOTE | 2017-09-26 08:46 | Discharge Inst-Post CATH ---
Discharge Inst-CATH Post Cardiac Cath D/C Inst Follow Up/Plan F/u with Dr Camara in 2 weeks CARDIAC CATH DISCHARGE INSTRUCTIONS *Hold Metformin for 48 hours post heart cath. ACTIVITY * Go Home directly and rest. * Limit activity of the leg (or wrist if it was used) for 7 days including aerobics, swimming, jogging, bicycling, etc. * Restrict stair-climbing for 7 days if possible, if not, climb up with your non -cath leg, then bring together on the same step. * Avoid lifting, pushing, pulling or excessive movement of the affected extremity for 7 days. * Customary sexual activity may be resumed after 2 days-use caution not to use a position that strains or causes pain to the affected extremity. * No driving for 24 hours. * NO SMOKING. * Avoid straining for bowel movements for 7 days. * Gentle walking on level ground is allowed. * Returning to work will depend on the type of procedure and the results. Your doctor will discuss this with you. CALL YOUR DOCTOR FOR ANY OF THE FOLLOWING: *If bleeding from the puncture site occurs- Apply gentle pressure to site with clean cloth and call your doctor or EMS. * If a knot or lump forms under the skin, increases in size, or causes pain. * If bruising appears to be worsening or moving further down your leg instead of disappearing. * Temperature above 101 F. CARE OF YOUR GROIN INCISION; * Bruising or purple discoloration of the skin near the puncture site is common. * You may shower only, no bathtub bathing for 5 days. Be careful to avoid slipping as your leg may feel stiff. * If a closure device was used on your femoral artery, please see the attached guide regarding care of the device and your leg. * REMOVE the dressing from your groin the next day after your procedure in the shower. CARE OF YOUR WRIST INCISION; * Bruising or purple discoloration of the skin near the puncture site is common. * You may shower. * DO NOT submerge wrist. * Remove dressing in 24 hours. ANSHU CAMARA MD FACP [facility]S September 26, 2017 08:46
--- NOTE | 2017-09-26 08:49 | Cardiology Discharge Summary ---
Diagnosis/Chief Complaint Date of Admission 09/24/17 Date of Discharge 09/26/17 Final/Discharge Diagnosis CAD. Last card cath of 09/24/17 showed 99% in-stent restenosis in the mid left anterior descending artery to which successful balloon angioplasty was carried out and which reduced the stenosis to less than 30%. The mid left anterior descending artery had 90% stenosis to which successful stenting was carried out (Alpine Xience 2.25 x 12 mm) with reduction of stenosis to 0% residual. The left circumflex artery has moderate mid vessel disease. The right coronary artery has mild diffuse disease. The ostial left main coronary artery has approximately 30% to 40% stenosis. Impairment of global left ventricular systolic function with apical akinesis, dyskinesis and left ventricular ejection fraction of 30% to 35%. Normal left ventricular end-diastolic pressure. No significant mitral regurgitation. Previous h/o CAD: LAD stent (3.0 x 16 Taxus) at [facility] in [place], [place] in Jan 2006 following [place]; subsequently PTCA for stent thrombosis of that stent in May 2006 at the same hosp. LVEF reported to be 40% (with anterior hypo ) on cath of 2006 S/p Life Vest for ischemic cardiomyopathy Echo of 09/17/17 showed LVEF 30-35%, ajit of mid ant, anteroseptal and apical riley, mild MR, PASP 35 mmHg, Previous echo of 06/19/17 showed cardiomeg with LVEF 15-20% and grade I martinez dysfunction and nromal PASP MPI of 08/01/17: large apical [place], apical dyskinesis, mod sev cardiomegaly, LVEF 25% Carotid arterial disease. Carotid u/s of 06/03/17 at [place], [place] showed 60-79% R ICA stenosis Chronic systolic CHF Hyperlipidemia, by histrory Abnormal ECG. ECG of 06/27/17 shows NSR with occ PVC and nonspecific ST abn Microcytic, hypochromic anemia on blood work of 06/28/17, followed by Dr Zarco , improved on blood work of 09/17/17 Chief Complaint/HPI Chief Complaint/HPI See progress note of the same date (09/26/17) for condition at discharge Discharge Summary Procedures None. Discussion & Recommendations Home Medications Reviewed patient Home Medication Reconciliation performed by pharmacy medication reconciliations technician inventory specialist and/or nursing. Patients Allergies have been reviewed. Discharge Home Medications: Reviewed and agree with Discharge Medication list on patient's Discharge Instruction sheet Instructions to patient/family F/u with Dr Camara in 2 weeks Clinical Quality Measures DVT/VTE Risk/Contraindication: Risk Factor Score Per Nursin RFS Level Per Nursing on Admit: 4+=Very High ANSHU CAMARA MD FACP [facility]AC [facility]S September 26, 2017 08:49
[2017-09-26] MEDS ORDERED: DIGOXIN 0.125 MG (LANOXIN) TAB PO SCH (09:00)
[2017-09-26] MEDS ORDERED: ASPIRIN E.C. 81 MG (ECOTRIN) TAB PO SCH (09:00)
[2017-09-26 12:20] VITALS: BP 120/73
== END 2017-09-26 12:20 | disposition home or self-care (01) ==
LOC: CATH 12:05 → 4TH 15:50 → CATH 09-26 12:20
PROVIDERS: ATTEND Nurse Practitioner Family
DX: T82.855A Stenosis of coronary artery stent, initial encounter (principal); I25.10 Atherosclerotic heart disease of native coronary artery without angina pectoris; I50.22 Chronic systolic (congestive) heart failure; I25.5 Ischemic cardiomyopathy; E78.5 Hyperlipidemia, unspecified; I65.21 Occlusion and stenosis of right carotid artery; D50.9 Iron deficiency anemia, unspecified; F17.210 Nicotine dependence, cigarettes, uncomplicated; Z95.5 Presence of coronary angioplasty implant and graft; Z79.82 Long term (current) use of aspirin; Z79.899 Other long term (current) drug therapy
CPT/HCPCS: 36415; 80048; 80053; 80061; 80162; 85027; 85610; 85730; 87081; 93005; 93458

== ENCOUNTER → 2018-01-16 | Outpatient (CLI) | payer BC, OTHER ==
[~2018-01-16] MED LIST changes: +CARV12.52 PO; +CEFU500T63 PO; +CLOP75TA69 PO
[2018-01-16 10:01] LABS: ALANINE AMINOTRANSFERASE 18 U/L (0-55); ALBUMIN 3.7 GM/DL (3.2-4.5); ALKALINE PHOSPHATASE 74 U/L (40-136); BILIRUBIN,TOTAL 0.4 MG/DL (0.1-1.0); BUN/CREATININE RATIO 11; CALCIUM 8.6 MG/DL (8.5-10.1); CARBON DIOXIDE 23 MMOL/L (21-32); CHLORIDE 108 MMOL/L (98-107); CREATININE SERUM 0.81 MG/DL (0.60-1.30); GFR ESTIMATED > 60; GLUCOSE 77 MG/DL (70-105); POTASSIUM 3.5 MMOL/L (3.6-5.0); SODIUM 139 MMOL/L (135-145); TOTAL PROTEIN 5.7 GM/DL (6.4-8.2)
[2018-01-16 10:06] LABS: DIGOXIN 0.59 NG/ML (0.80-2.00)
== END ==
LOC: CARD 09:22
PROVIDERS: ATTEND Nurse Practitioner Family
DX: I25.10 Atherosclerotic heart disease of native coronary artery without angina pectoris (principal); I42.0 Dilated cardiomyopathy; I50.22 Chronic systolic (congestive) heart failure; I77.89 Other specified disorders of arteries and arterioles; Z72.0 Tobacco use
CPT/HCPCS: 36415; 80053; 80162; 93306

== ENCOUNTER 2018-01-28 06:59 | Day surgery (SDC) | payer BC, OTHER ==
[2018-01-28] VITALS (13 sets, daily range): BP systolic 119–141; BP diastolic 63–75
[~2018-01-28] VITALS: Ht 182.9 cm; Wt 80.7 kg
[~2018-01-28 06:59] MED LIST changes: -CARV12.52 PO; -CEFU500T63 PO; -CLOP75TA69 PO
[2018-01-28] MEDS ORDERED: LIDOCAINE 1% INJ 20 ML 20 ML VIAL ONE (07:01)
[2018-01-28] MEDS ORDERED: NS IV 1000 ML 1,000 ML ONE (07:01)
[2018-01-28] MEDS ORDERED: HEParin (CATH LAB) 1,000 ML IV ONE (07:01)
[2018-01-28] MEDS ORDERED: NS IV 1000 ML 1,000 ML IV ONE (07:02)
[2018-01-28] MEDS ORDERED: ceFAZolin 1,000 MG/10 ML (ANCEF) VIAL ONE (07:02)
--- OUTSIDE RECORDS SUMMARY | 2018-01-28 07:07 | XMS REPORT | Continuity of Care Document ---
Author Author [facility] Organization [facility] Address Unknown Phone Unavailable Allergies Active Description Code Type Severity Reaction Onset Reported/Identified Relationship to Patient Clinical Status Yes No Allergy Information Available [id number] Drug Allergy Unknown N/A 2017 Yes No Known Drug Allergies [id number] Drug Allergy Unknown N/A 09/24/2017 Medications There is no data. Problems Date Dx Coded Attending Type Code Diagnosis Diagnosed By 06/04/2017 SHAWNA DOMINGO MD, Ot I25.10 ATHSCL HEART DISEASE OF [place] CORONARY 06/04/2017 SHAWNA DOMINGO MD Ot 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 06/13/2017 SHAWNA DOMINGO MD Ot I25.10 ATHSCL HEART DISEASE OF [place] CORONARY 06/13/2017 SHAWNA DOMINGO MD Ot 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 06/19/2017 SHAWNA DOMINGO MD Ot I25.10 ATHSCL HEART DISEASE OF [place] CORONARY 06/19/2017 SHAWNA DOMINGO MD Ot 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 06/20/2017 SHAWNA DOMINGO MD Ot G45.8 OTH TRANSIENT CEREBRAL ISCHEMIC ATTACKS 06/20/2017 SHAWNA DOMINGO MD Ot I25.10 ATHSCL HEART DISEASE OF [place] CORONARY 06/20/2017 SHAWNA DOMINGO MD Ot G45.8 OTH TRANSIENT CEREBRAL ISCHEMIC ATTACKS 06/20/2017 SHAWNA DOMINGO MD Ot I25.10 ATHSCL HEART DISEASE OF [place] CORONARY 07/02/2017 RACHID OCAMPO FACC, ALI FACP CCDS Ot I25.10 ATHSCL HEART DISEASE OF [place] CORONARY 07/02/2017 RACHID OCAMPO FACC, ALI FACP CCDS Ot I42.0 DILATED CARDIOMYOPATHY 07/02/2017 RACHID OCAMPO FACC, ALI FACP CCDS Ot I65.23 OCCLUSION AND STENOSIS OF BILATERAL CA[place]ILLO 07/02/2017 RACHID OCAMPO FACC, ALI FACP CCDS Ot Z72.0 TOBACCO USE 07/03/2017 SHAWNA DOMINGO MD Ot G45.8 OTH TRANSIENT CEREBRAL ISCHEMIC ATTACKS 07/03/2017 CHAYO OCAMPO, SHAWNA C Ot I25.10 ATHSCL HEART DISEASE OF [place] CORONARY 07/11/2017 RACHID OCAMPO FACC, ALI FACP CCDS Ot I25.10 ATHSCL HEART DISEASE OF [place] CORONARY 07/11/2017 RACHID OCAMPO FACC, ALI FACP CCDS Ot I42.0 DILATED CARDIOMYOPATHY 07/11/2017 RACHID OCAMPO FACC, ALI FACP CCDS Ot I65.23 OCCLUSION AND STENOSIS OF BILATERAL [place]ILL[place] 07/11/2017 RACHID OCAMPO FACC, ALI FACP CCDS Ot Z72.0 TOBACCO USE 08/01/2017 RACHID OCAMPO FACC, ALI FACP CCDS Ot I25.10 ATHSCL HEART DISEASE OF [place] CORONARY 08/01/2017 RACHID OCAMPO FACC, ALI FACP CCDS Ot I42.0 DILATED CARDIOMYOPATHY 08/01/2017 RACHID OCAMPO FACC, ALI FACP CCDS Ot Z72.0 TOBACCO USE 08/01/2017 RACHID OCAMPO FACC, ALI FACP CCDS Ot I25.10 ATHSCL HEART DISEASE OF [place] CORONARY 08/01/2017 RACHID OCAMPO FACC, ALI FACP CCDS Ot I42.0 DILATED CARDIOMYOPATHY 08/01/2017 RACHID OCAMPO FACC, ALI FACP CCDS Ot Z72.0 TOBACCO USE 08/05/2017 RACHID OCAMPO [facility], ALI FACP CCDS Ot I25.10 ATHSCL HEART DISEASE OF [place] CORONARY 08/05/2017 RACHID HERNANDEZC, ALI FACP CCDS Ot I42.0 DILATED CARDIOMYOPATHY 08/05/2017 RACHID OCAMPO FACC, ALI FACP CCDS Ot I65.29 OCCLUSION AND STENOSIS OF UNSPECIFIED CA 08/05/2017 RACHID OCAMPO FACC, ALI FACP CCDS Ot Z72.0 TOBACCO USE 08/08/2017 RACHID OCAMPO FACC, ALI FACP CCDS Ot I25.10 ATHSCL HEART DISEASE OF [place] CORONARY 08/08/2017 RACHID OCAMPO FACC, ALI FACP CCDS Ot I42.0 DILATED CARDIOMYOPATHY 08/08/2017 RACHID OCAMPO FACC, ALI FACP CCDS Ot I65.29 OCCLUSION AND STENOSIS OF UNSPECIFIED CA 08/08/2017 RACHID OCAMPO FACC, ALI FACP CCDS Ot Z72.0 TOBACCO USE 08/09/2017 RACHID MD FACC, ALI FACP CCDS Ot I25.10 ATHSCL HEART DISEASE OF [place] CORONARY 08/09/2017 RACHID OCAMPO FACC, ALI FACP CCDS Ot I42.0 DILATED CARDIOMYOPATHY 08/09/2017 RACHID OCAMPO FACC, ALI FACP CCDS Ot Z72.0 TOBACCO USE 08/22/2017 RACHID OCAMPO FACC, ALI FACP CCDS Ot I25.10 ATHSCL HEART DISEASE OF [place] CORONARY 08/22/2017 RACHID OCAMPO FACC, ALI FACP CCDS Ot I42.0 DILATED CARDIOMYOPATHY 08/22/2017 RACHID HERNANDEZC, ALI FACP CCDS Ot Z72.0 TOBACCO USE 09/17/2017 SHAWNA DOMINGO MD Ot I25.10 ATHSCL HEART DISEASE OF [place] CORONARY 09/17/2017 SHAWNA DOMINGO MD Ot 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 09/17/2017 SHAWNA DOMINGO MD Ot G45.8 OTH TRANSIENT CEREBRAL ISCHEMIC ATTACKS 09/17/2017 SHAWNA DOMINGO MD Ot I25.10 ATHSCL HEART DISEASE OF [place] CORONARY 09/17/2017 RACHID HERNANDEZC, ALI FACP CCDS Ot I25.10 ATHSCL HEART DISEASE OF [place] CORONARY 09/17/2017 RACHID HERNANDEZC, ALI FACP CCDS Ot I42.0 DILATED CARDIOMYOPATHY 09/17/2017 RACHID OCAMPO FACC, ALI FACP CCDS Ot I65.23 OCCLUSION AND STENOSIS OF BILATERAL [place] 09/17/2017 RACHID HERNANDEZC, ALI FACP CCDS Ot Z72.0 TOBACCO USE 09/17/2017 RACHID HERNANDEZC, ALI FACP CCDS Ot I25.10 ATHSCL HEART DISEASE OF [place] CORONARY 09/17/2017 RACHID OCAMPO FACC, ALI FACP CCDS Ot I42.0 DILATED CARDIOMYOPATHY 09/17/2017 RACHID OCAMPO FACC, ALI FACP CCDS Ot Z72.0 TOBACCO USE 09/17/2017 RACHID HERNANDEZC, ALI FACP CCDS Ot I25.10 ATHSCL HEART DISEASE OF [place] CORONARY 09/17/2017 RACHID HERNANDEZC, ALI FACP CCDS Ot I42.0 DILATED CARDIOMYOPATHY 09/17/2017 RACHID OCAMPO FACC, ALI FACP CCDS Ot Z72.0 TOBACCO USE 09/19/2017 RACHID HERNANDEZC, ALI FACP CCDS Ot I25.10 ATHSCL HEART DISEASE OF [place] CORONARY 09/19/2017 RACHID OCAMPO FACC, ALI FACP [...] ALI FACP CCDS Ot Z72.0 TOBACCO USE 09/26/2017 RACHID OCAMPO FACC, ALI FACP CCDS Ot I25.10 ATHSCL HEART DISEASE OF [place] CORONARY 09/26/2017 RACHID OCAMPO FACC, ALI FACP CCDS Ot I34.0 NONRHEUMATIC MITRAL (VALVE) INSUFFICIENC 09/26/2017 RACHID OCAMPO FACC, ALI FACP CCDS Ot I42.0 DILATED CARDIOMYOPATHY 09/26/2017 RACHID OCAMPO FACC, ALI FACP CCDS Ot I50.22 CHRONIC SYSTOLIC (CONGESTIVE) HEART FAIL 09/26/2017 RACHID OCAMPO FACC, ALI FACP CCDS Ot I65.23 OCCLUSION AND STENOSIS OF BILATERAL [place] 09/26/2017 RACHID OCAMPO FACC, ALI FACP CCDS Ot Z72.0 TOBACCO USE 09/26/2017 CRISTI ARAUJO SHIFT COMMANDER Ot D50.9 IRON DEFICIENCY ANEMIA, UNSPECIFIED 09/26/2017 CRISTI ARAUJO L SHIFT COMMANDER Ot E78.5 HYPERLIPIDEMIA, UNSPECIFIED 09/26/2017 CRISTI ARAUJO L SHIFT COMMANDER Ot F17.210 NICOTINE DEPENDENCE, CIGARETTES, UNCOMPL 09/26/2017 CRISTI ARAUJO L SHIFT COMMANDER Ot I25.10 ATHSCL HEART DISEASE OF [place] CORONARY 09/26/2017 CRISTI ARAUOJ L SHIFT COMMANDER Ot I25.5 ISCHEMIC CARDIOMYOPATHY 09/26/2017 CRISTI ARAUJO L SHIFT COMMANDER Ot I50.22 CHRONIC SYSTOLIC (CONGESTIVE) HEART FAIL 09/26/2017 CRISTI ARAUJO L SHIFT COMMANDER Ot 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 09/26/2017 CRISTI ARAUJO L SHIFT COMMANDER Ot T82.855A STENOSIS OF CORONARY ARTERY STENT, INITI 09/26/2017 TIARACRISTI HAYES L SHIFT COMMANDER Ot Z79.82 NUT GRADER (CURRENT) USE OF ASPIRIN 09/26/2017 BAIMA, CRISTI L SHIFT COMMANDER Ot Z79.899 OTHER FPC (CURRENT) DRUG THERAPY 09/26/2017 BAIMA, CRISTI L SHIFT COMMANDER Ot Z95.5 PRESENCE OF CORONARY ANGIOPLASTY IMPLANT 09/26/2017 TIARAMA, CRISTI L SHIFT COMMANDER Ot D50.9 IRON DEFICIENCY ANEMIA, UNSPECIFIED 09/26/2017 BAIMA, CRISTI L SHIFT COMMANDER Ot E78.5 HYPERLIPIDEMIA, UNSPECIFIED 09/26/2017 BAIMA, CRISTI L SHIFT COMMANDER Ot F17.210 NICOTINE DEPENDENCE, CIGARETTES, UNCOMPL 09/26/2017 BAIMA, CRISTI L SHIFT COMMANDER Ot I25.10 ATHSCL HEART DISEASE OF [place] CORONARY 09/26/2017 BAIMA, CRISTI L SHIFT COMMANDER Ot I25.5 ISCHEMIC CARDIOMYOPATHY 09/26/2017 BAIMA, CRISTI L SHIFT COMMANDER Ot I50.22 CHRONIC SYSTOLIC (CONGESTIVE) HEART FAIL 09/26/2017 BAIMA, CRISTI L SHIFT COMMANDER Ot 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 09/26/2017 BAIMA, CRISTI L SHIFT COMMANDER Ot T82.855A STENOSIS OF CORONARY ARTERY STENT, INITI 09/26/2017 VAN CRISTI L SHIFT COMMANDER Ot Z79.82 NUT GRADER (CURRENT) USE OF ASPIRIN 09/26/2017 BAIMA, CRISTI L SHIFT COMMANDER Ot Z79.899 OTHER FPC (CURRENT) DRUG THERAPY 09/26/2017 TIARAMA, CRISTI L SHIFT COMMANDER Ot Z95.5 PRESENCE OF CORONARY ANGIOPLASTY IMPLANT 09/27/2017 VAN CRISTI L SHIFT COMMANDER Ot D50.9 IRON DEFICIENCY ANEMIA, UNSPECIFIED 09/27/2017 BAIMA, CRISTI L SHIFT COMMANDER Ot E78.5 HYPERLIPIDEMIA, UNSPECIFIED 09/27/2017 BAIMA, CRISTI L SHIFT COMMANDER Ot F17.210 NICOTINE DEPENDENCE, CIGARETTES, UNCOMPL 09/27/2017 BAIMA, CRISTI L SHIFT COMMANDER Ot I25.10 ATHSCL HEART DISEASE OF [place] CORONARY 09/27/2017 BAIMA, CRISTI L SHIFT COMMANDER Ot I25.5 ISCHEMIC CARDIOMYOPATHY 09/27/2017 BAIMA, CRISTI L SHIFT COMMANDER Ot I50.22 CHRONIC SYSTOLIC (CONGESTIVE) HEART FAIL 09/27/2017 BAIMA, CRISTI L SHIFT COMMANDER Ot 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 09/27/2017 CRISTI ARAUJO SHIFT COMMANDER Ot T82.855A STENOSIS OF CORONARY ARTERY STENT, INITI 09/27/2017 CRISTI ARAUJO SHIFT COMMANDER Ot Z79.82 NUT GRADER (CURRENT) USE OF ASPIRIN 09/27/2017 CRISTI ARAUJO SHIFT COMMANDER Ot Z79.899 OTHER FPC (CURRENT) DRUG THERAPY 09/27/2017 CRISTI ARAUJO SHIFT COMMANDER Ot Z95.5 PRESENCE OF CORONARY ANGIOPLASTY IMPLANT 10/07/2017 RACHID OCAMPO FACC, ALI FACP CCDS Ot I25.10 ATHSCL HEART DISEASE OF [place] CORONARY 10/07/2017 RACHID OCAMPO FACC, ALI FACP CCDS Ot I34.0 NONRHEUMATIC MITRAL (VALVE) INSUFFICIENC 10/07/2017 RACHID OCAMPO FACC, ALI FACP CCDS Ot I42.0 DILATED CARDIOMYOPATHY 10/07/2017 RACHID OCAMPO FACC, ALI FACP CCDS Ot I50.22 CHRONIC SYSTOLIC (CONGESTIVE) HEART FAIL 10/07/2017 RACHID OCAMPO FACC, ALI FACP CCDS Ot I65.23 OCCLUSION AND STENOSIS OF BILATERAL [place] 10/07/2017 RACHID OCAMPO FACC, ALI FACP CCDS Ot Z72.0 TOBACCO USE 01/09/2018 SHAWNA DOMINGO MD Ot I25.10 ATHSCL HEART DISEASE OF [place] CORONARY 01/09/2018 SHAWNA DOMINGO MD Ot 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 01/09/2018 SHAWNA DOMINGO MD Ot G45.8 OTH TRANSIENT CEREBRAL ISCHEMIC ATTACKS 01/09/2018 SHAWNA DOMINGO MD Ot I25.10 ATHSCL HEART DISEASE OF [place] CORONARY 01/09/2018 RACHID OCAMPO FACC, ALI FACP CCDS Ot I25.10 ATHSCL HEART DISEASE OF [place] CORONARY 01/09/2018 RACHID OCAMPO FACC, ALI FACP CCDS Ot I42.0 DILATED CARDIOMYOPATHY 01/09/2018 RACHID OCAMPO FACC, ALI FACP CCDS Ot I65.23 OCCLUSION AND STENOSIS OF BILATERAL [place] 01/09/2018 RACHID OCAMPO FACC, ALI FACP CCDS Ot Z72.0 TOBACCO USE 01/09/2018 RACHID OCAMPO FACC, ALI FACP CCDS Ot I25.10 ATHSCL HEART DISEASE OF [place] CORONARY 01/09/2018 RACHID OCAMPO FACC, ALI FACP CCDS Ot I42.0 DILATED CARDIOMYOPATHY 01/09/2018 RACHID OCAMPO FACC, ALI FACP CCDS Ot Z72.0 TOBACCO USE 01/09/2018 RACHID OCAMPO FACC, ALI FACP CCDS Ot I25.10 ATHSCL HEART DISEASE OF [place] CORONARY 01/09/2018 RACHID OCAMPO FACC, ALI FACP CCDS Ot I42.0 DILATED CARDIOMYOPATHY 01/09/2018 RACHID OCAMPO FACC, ALI FACP CCDS Ot Z72.0 TOBACCO USE 01/09/2018 RACHID OCAMPO FACC, ALI FACP CCDS Ot I25.10 ATHSCL HEART DISEASE OF [place] CORONARY 01/09/2018 RACHID OCAMPO FACC, ALI FACP CCDS Ot I34.0 NONRHEUMATIC MITRAL (VALVE) INSUFFICIENC 01/09/2018 RACHID OCAMPO FACC, ALI FACP CCDS Ot I42.0 DILATED CARDIOMYOPATHY 01/09/2018 RACHID OCAMPO FACC, ALI FACP CCDS Ot I50.22 CHRONIC SYSTOLIC (CONGESTIVE) HEART FAIL 01/09/2018 RACHID OCAMPO FACC, ALI FACP CCDS Ot I65.23 OCCLUSION AND STENOSIS OF BILATERAL [place] 01/09/2018 RACHID OCAMPO FACC, ALI FACP CCDS Ot Z72.0 TOBACCO USE 01/16/2018 SHAWNA DOMINGO MD Ot I25.10 ATHSCL HEART DISEASE OF [place] CORONARY 01/16/2018 SHAWNA DOMINGO MD Ot 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 01/16/2018 SHAWNA DOMINGO MD Ot G45.8 OTH TRANSIENT CEREBRAL ISCHEMIC ATTACKS 01/16/2018 SHAWNA DOMINGO MD Ot I25.10 ATHSCL HEART DISEASE OF [place] CORONARY 01/16/2018 RACHID OCAMPO FACC, ALI FACP CCDS Ot I25.10 ATHSCL HEART DISEASE OF [place] CORONARY 01/16/2018 RACHID HERNANDEZC, ALI FACP CCDS Ot I42.0 DILATED CARDIOMYOPATHY 01/16/2018 RACHID OCAMPO FACC, ALI FACP CCDS Ot I65.23 OCCLUSION AND STENOSIS OF BILATERAL [place] 01/16/2018 RACHID OCAMPO FACC, ALI FACP CCDS Ot Z72.0 TOBACCO USE 01/16/2018 RACHID OCAMPO FACC, ALI FACP CCDS Ot I25.10 ATHSCL HEART DISEASE OF [place] CORONARY 01/16/2018 RACHID OCAMPO [facility], ALI FACP CCDS Ot I42.0 DILATED CARDIOMYOPATHY 01/16/2018 RACHID OCAMPO [facility], ALI FACP CCDS Ot Z72.0 TOBACCO USE 01/16/2018 RACHID OCAMPO FAC, ALI FACP CCDS Ot I25.10 ATHSCL HEART DISEASE OF [place] CORONARY 01/16/2018 RACHID OCAMPO FAC, ALI FACP CCDS Ot I42.0 DILATED CARDIOMYOPATHY 01/16/2018 RACHID OCAMPO [facility], ALI FACP CCDS Ot Z72.0 TOBACCO USE 01/16/2018 RACHID OCAMPO [facility], ALI FACP CCDS Ot I25.10 ATHSCL HEART DISEASE OF [place] CORONARY 01/16/2018 RACHID OCAMPO [facility], ALI FACP CCDS Ot I34.0 NONRHEUMATIC MITRAL (VALVE) INSUFFICIENC 01/16/2018 RACHID OCAMPO [facility], ALI FACP CCDS Ot I42.0 DILATED CARDIOMYOPATHY 01/16/2018 RACHID OCAMPO [facility], ALI FACP CCDS Ot I50.22 CHRONIC SYSTOLIC (CONGESTIVE) HEART FAIL 01/16/2018 RACHID OCAMPO [facility], ALI FACP CCDS Ot I65.23 OCCLUSION AND STENOSIS OF BILATERAL [place]ILL[place] 01/16/2018 RACHID OCAMPO [facility], ALI FACP CCDS Ot Z72.0 TOBACCO USE 01/21/2018 CRISTI ARAUJO SHIFT COMMANDER Ot I25.10 ATHSCL HEART DISEASE OF [place] CORONARY 01/21/2018 CRISTI ARAUJO L SHIFT COMMANDER Ot I42.0 DILATED CARDIOMYOPATHY 01/21/2018 CRISTI ARAUJO SHIFT COMMANDER Ot I50.22 CHRONIC SYSTOLIC (CONGESTIVE) HEART FAIL 01/21/2018 CRISTI ARAUJO L SHIFT COMMANDER Ot I77.89 OTHER SPECIFIED DISORDERS OF ARTERIES AN 01/21/2018 TIARAMACRISTI L SHIFT COMMANDER Ot Z72.0 TOBACCO USE Procedures There is no data. Results Test Result Range Automated blood complete blood count (hemogram) panel - 09/24/17 12:42 Blood leukocytes automated count (number/volume) 5.4 10*3/uL 4.3-11.0 Blood erythrocytes automated count (number/volume) 5.01 10*6/uL 4.35-5.85 Venous blood hemoglobin measurement (mass/volume) 14.0 g/dL 13.3-17.7 Blood hematocrit (volume fraction) 42 % 40-54 Automated erythrocyte mean corpuscular volume 83 [foz_us] 80-99 Automated erythrocyte mean corpuscular hemoglobin (mass per erythrocyte) 28 pg 25-34 Automated erythrocyte mean corpuscular hemoglobin concentration measurement ( mass/volume) 34 g/dL 32-36 Automated erythrocyte distribution width ratio 22.4 % 10.0-14.5 Automated blood platelet count (count/volume) 205 10*3/uL 130-400 Automated blood platelet mean volume measurement 9.8 [foz_us] 7.4-10.4 PT panel in platelet poor plasma by coagulation assay - 09/24/17 12:42 Prothrombin time (PT) in platelet poor plasma by coagulation assay 13.8 s 12.2-14.7 INR in platelet poor plasma or blood by coagulation assay 1.1 0.8-1.4 Activated partial thromboplastin time (aPTT) in platelet poor plasma bycoagulation assay - 09/24/17 12:42 Activated partial thromboplastin time (aPTT) in platelet poor plasma bycoagulation assay 29 s 24-35 Comprehensive metabolic panel - 09/24/17 12:42 Serum or plasma sodium measurement (moles/volume) 140 mmol/L 135-145 Serum or plasma potassium measurement (moles/volume) 4.1 mmol/L 3.6-5.0 Serum or plasma chloride measurement (moles/volume) 108 mmol/L 98-107 Carbon dioxide 23 mmol/L 21-32 Serum or plasma anion gap determination (moles/volume) 9 mmol/L 5-14 Serum or plasma urea nitrogen measurement (mass/volume) 10 mg/dL 7-18 Serum or plasma creatinine measurement (mass/volume) 0.90 mg/dL 0.60-1.30 Serum or plasma urea nitrogen/creatinine mass ratio 11 NRG Serum or plasma creatinine measurement with calculation of estimated glomerular filtration rate > NRG Serum or plasma glucose measurement (mass/volume) 94 mg/dL 70-105 Serum or plasma calcium measurement (mass/volume) 9.1 mg/dL 8.5-10.1 Serum or plasma total bilirubin measurement (mass/volume) 0.4 mg/dL 0.1-1.0 Serum or plasma alkaline phosphatase measurement (enzymatic activity/volume) 75 U/L 40-136 Serum or plasma aspartate aminotransferase measurement (enzymatic activity/ volume) 20 U/L 5-34 Serum or plasma alanine aminotransferase measurement (enzymatic activity/volume ) 20 U/L 0-55 Serum or plasma protein measurement (mass/volume) 6.4 g/dL 6.4-8.2 Serum or plasma albumin measurement (mass/volume) 4.2 g/dL 3.2-4.5 Lipid 1996 panel - 09/24/17 12:42 Serum or plasma triglyceride measurement (mass/volume) 64 mg/dL <150 Serum or plasma cholesterol measurement (mass/volume) 100 mg/dL < 200 Serum or plasma cholesterol in HDL measurement (mass/volume) 41 mg/ dL 40-60 Cholesterol in LDL [mass/volume] in serum or plasma by direct assay 45 mg/dL 1-129 Serum or plasma cholesterol in VLDL measurement (mass/volume) 13 mg/ dL 5-40 Methicillin resistant Staphylococcus aureus (MRSA) screening culture - 12:42 Methicillin resistant Staphylococcus aureus (MRSA) screening culture NEG NRG Automated blood complete blood count (hemogram) panel - 09/25/17 05:28 Blood leukocytes automated count (number/volume) 4.9 10*3/uL 4.3-11.0 Blood erythrocytes automated count (number/volume) 4.65 10*6/uL 4.35-5.85 Venous blood hemoglobin measurement (mass/volume) 12.9 g/dL 13.3-17.7 Blood hematocrit (volume fraction) 39 % 40-54 Automated erythrocyte mean corpuscular volume 84 [foz_us] 80-99 Automated erythrocyte mean corpuscular hemoglobin (mass per erythrocyte) 28 pg 25-34 Automated erythrocyte mean corpuscular hemoglobin concentration measurement ( mass/volume) 33 g/dL 32-36 Automated erythrocyte distribution width ratio 22.2 % 10.0-14.5 Automated blood platelet count (count/volume) 167 10*3/uL 130-400 Automated blood platelet mean volume measurement 9.9 [foz_us] 7.4-10.4 Whole blood basic metabolic panel - 09/25/17 05:28 Serum or plasma sodium measurement (moles/volume) 140 mmol/L 135-145 Serum or plasma potassium measurement (moles/volume) 3.6 mmol/L 3.6-5.0 Serum or plasma chloride measurement (moles/volume) 109 mmol/L 98-107 Carbon dioxide 22 mmol/L 21-32 Serum or plasma anion gap determination (moles/volume) 9 mmol/L 5-14 Serum or plasma urea nitrogen measurement (mass/volume) 9 mg/dL 7-18 Serum or plasma creatinine measurement (mass/volume) 0.79 mg/dL 0.60-1.30 Serum or plasma urea nitrogen/creatinine mass ratio 11 NRG Serum or plasma creatinine measurement with calculation of estimated glomerular filtration rate > NRG Serum or plasma glucose measurement (mass/volume) 81 mg/dL 70-105 Serum or plasma calcium measurement (mass/volume) 8.1 mg/dL 8.5-10.1 Digoxin - 09/25/17 05:28 Digoxin 0.36 ng/mL 0.80-2.00 Encounters ACCT No. Visit Date/Time Discharge Status Pt. Type Provider Facility Loc./Unit Complaint [id number] 04/17/2017 14:16:02 ACT Unknown [id number] 01/16/2018 09:22:00 01/16/2018 23:59:59 CLS Outpatient CRISTI ARAUJO [facility] CARD CAD,CAROTID ARTERIAL DISEASE [id number] 09/24/2017 12:05:00 09/26/2017 12:20:00 DIS Outpatient CRISTI ARAUJO [facility] CATH CAD,CAROTID ARTERAIL DISEASE [id number] 09/17/2017 08:27:00 09/17/2017 23:59:59 CLS Outpatient ANSHU RASHID MD, FACCP CCDS [facility] CARD I25.10 CAD [id number] 08/02/2017 10:04:00 08/02/2017 23:59:59 CLS Outpatient ANSHU RASHID MD, FACC FACP CCDS [facility] LAB I25.10 I65.23 I42.0 Z72.0 [id number] 08/01/2017 06:50:00 08/01/2017 23:59:59 CLS Outpatient RACHID OCAMPO FACC ALI FACP CCDS [facility] CARD CAD [id number] 06/28/2017 08:12:00 06/28/2017 23:59:59 CLS Outpatient ANSHU RASHID MD, FACC FACP CCDS [facility] LAB I42.0 [id number] 06/19/2017 11:01:00 06/19/2017 23:59:59 CLS Outpatient SHAWNA DOMINGO MD [facility] CARD CORONARY ARTERY DISEASE [id number] 06/03/2017 13:29:00 06/03/2017 23:59:59 CLS Outpatient SHAWNA DOMINGO MD [facility] RAD G45.8 CORONARY ARTERY DISEASE [id number] 01/28/2018 08:00:00 PAUL RASHID MD FACC, ANSHU FULLER CCDS [facility] CATH CAD
[2018-01-28] MEDS ORDERED: BACITRACIN INJECTION 50,000 UNIT, SODIUM CHLORIDE 0.9% IRRIGATIO 500 ML IR ONE ×2 (07:15)
[2018-01-28] MEDS ORDERED: ceFAZolin 1,000 MG/10 ML (ANCEF) VIAL IV ONE (07:15)
[2018-01-28 07:23] LABS: HEMOGLOBIN 14.5 G/DL (13.3-17.7); MEAN PLATELET VOLUME 9.6 FL (7.4-10.4); RED BLOOD COUNT 4.7 10^6/uL (4.35-5.85); RED CELL DISTRIBUTION WIDTH 13.9 % (10.0-14.5); WHITE BLOOD COUNT 7.1 10^3/uL (4.3-11.0)
[2018-01-28] MEDS ORDERED: NS (IVPB) 50 ML ONE (07:23)
[2018-01-28] MEDS ORDERED: ASPI-999 PO (07:24)
[2018-01-28] MEDS ORDERED: DIGO125T PO (07:24)
[2018-01-28] MEDS ORDERED: CLOP75TA69 PO (07:24)
[2018-01-28] MEDS ORDERED: MIDAZOLAM 5 MG/5 ML (VERSED) VIAL ONE (07:28)
[2018-01-28] MEDS ORDERED: fentaNYL INJECTION 100 MCG/2 ML AMP ONE (07:29)
[2018-01-28 07:35] LABS: PROTHROMBIN TIME PATIENT 13.2 SEC (12.2-14.7)
[2018-01-28 07:42] LABS: ALANINE AMINOTRANSFERASE 23 U/L (0-55); ALBUMIN 4.1 GM/DL (3.2-4.5); ALKALINE PHOSPHATASE 75 U/L (40-136); BILIRUBIN,TOTAL 0.6 MG/DL (0.1-1.0); BUN/CREATININE RATIO 8; CALCIUM 9.1 MG/DL (8.5-10.1); CARBON DIOXIDE 24 MMOL/L (21-32); CHLORIDE 107 MMOL/L (98-107); CHOLESTEROL 103 MG/DL (< 200); CREATININE SERUM 0.84 MG/DL (0.60-1.30); GFR ESTIMATED > 60; GLUCOSE 100 MG/DL (70-105); HDL CHOLESTEROL 41 MG/DL (40-60); POTASSIUM 3.8 MMOL/L (3.6-5.0); SODIUM 141 MMOL/L (135-145); TOTAL PROTEIN 6.5 GM/DL (6.4-8.2); TRIGLYCERIDES 71 MG/DL (<150); VLDL CHOLESTEROL 14 MG/DL (5-40)
[2018-01-28] MEDS ORDERED: FLU QUADRIvalent (5+ YOA) 2018-2019 (AFLURIA) 0.5 ML IM ONE (08:30)
[2018-01-28] MEDS ORDERED: NEO/POLY/BAC (NEOSPORIN) OINT 15 GM TUBE ONE (09:04)
[2018-01-28] MEDS ORDERED: NS IV 1000 ML 1,000 ML IV SCH (09:27)
--- NOTE | 2018-01-28 09:27 | Cardiac Procedure Note-CS/ASA ---
Pre-Procedure Note Pre-Op Procedure Note H&P Reviewed The H&P was reviewed, patient examined and no changes noted. Date H&P Reviewed: Jan 28, 2018 Time H&P Reviewed: 08:10 Conscious Sedation Pre-Proced Time 08:10 ASA Score 3 For ASA 3 and 4: Consider anesthesia and medical clearance. Also, for patients with a history of failed moderate sedation consider anesthesia. Airway Lungs Heart ASA score ASA 1: a normal healthy patient ASA 2: a patient with a mild systemic disease (mid diabetes, controlled hypertension, obesity ASA 3: a patient with a severe systemic disease that limits activity (angina , COPD, prior Myocardial infarction) ASA 4: a patient with an incapacitating disease that is a constant threat to life (CHF, renal failure) ASA 5: a moribund patient not expected to survive 24 hrs. (ruptured aneurysm) ASA 6: a declared brain patient whose organs are being harvested. For emergent operations, add the letter E after the classification Mallampati Classification Grade 2 Sedation Plan Analgesia, Amnesia, Plan communicated to team members, Discussed options with patient/fam, Discussed risks with patient/fam The patient is an appropriate candidate to undergo the planned procedure, sedation, and anesthesia. The patient immediately re-assessed prior to indication. ANSHU RASHID MD FACP FAC CCDS Jan 28, 2018 09:27
[2018-01-28] MEDS ORDERED: PATIENT MAY USE OWN MEDS, ALL PO SCH (09:30)
--- NOTE | 2018-01-28 13:12 | Diagnostic Imaging Report ---
INDICATION: Heart disease. COMPARISON: No prior examinations are available for comparison. FINDINGS: The heart size is normal. The mediastinum is unremarkable. There is no pleural effusion, pneumothorax, or pneumonia. A pacemaker overlies the left hemithorax. IMPRESSION: No acute cardiopulmonary abnormality. Dictated by: Dictated on workstation # [id number]
--- NOTE | 2018-01-28 13:34 | OPERATIVE REPORT ---
DATE OF SERVICE: 01/28/2018 PREOPERATIVE DIAGNOSIS: Ischemic dilated cardiomyopathy. POSTOPERATIVE DIAGNOSIS: Ischemic dilated cardiomyopathy. PROCEDURE: Single chamber defibrillator implantation ESTIMATED BLOOD LOSS: Less than 10 mL. The patient is a 57-year-old man with ischemic dilated cardiomyopathy with ejection fraction 30% to 35% that has persisted without improvement for many months. Single chamber defibrillator implantation was carried out today after having obtained an informed consent. DESCRIPTION OF PROCEDURE: He was brought to the cardiac catheterization laboratory. The left prepectoral area was prepared and draped in the usual sterile fashion. Lidocaine 1% used as a local anesthesia. Modified Seldinger technique was used to advance a guidewire into the left subclavian vein and the tip was placed in the right atrium. Sharp and blunt dissection was used to make a pacemaker pocket. Good hemostasis was assured. The pocket was packed with gauze soaked in antibiotic solution. The guidewire was used to advance a sheath. The guidewire was removed. The sheath was used to advance the lead and the sheath was removed. The tip of the lead was placed at the right ventricular apex. This is a passive fixation lead. It is Medtronic model 0470P26 with serial number [id number]. The R-wave amplitude is 12.1 millivolts. Pacing impedance is 627 ohms. Ventricular capture threshold is 1 volt at 0.06 milliseconds. HVB impedance is 41 ohms. HVX impedance is 47 ohms. The lead was attached to a single chamber pacemaker defibrillator. This is a Medtronic model OFLX4Q6 with serial number [id number]. The pocket was thoroughly irrigated with an antibiotic solution after the gauze had been removed. Good hemostasis was assured. The pacemaker and the leads were placed in the pocket and the pocket was closed in 2 layers using 3.0 Vicryl. Prior to pocket closure, the lead was secured to the prepectoral fascia using a sleeve and 0 Ethibond. The patient tolerated the procedure well. Job ID: [id number] DocumentID: [id number] Dictated Date: 01/28/2018 09:23:07 Yeast Fermentation Attendant Date: 01/28/2018 13:33:42 Dictated By: ANSHU RASHID MD, MA, FACP, FACC,
[2018-01-28] MEDS: ceFAZolin INJECTION 1,000 MG in NS (IVPB) 50 ML IV SCH ×2 (14:31→21:33)
[2018-01-28] MEDS ORDERED: oxyCODONE/APAP 5/325MG (PERCOCET 5) TABLET PO PRN (18:45)
[2018-01-28] MEDS: ACETAMINOPHEN 325 MG TABLET PO PRN (18:55)
[2018-01-28] MEDS ORDERED: CARVEDILOL 12.5 MG (COREG) TABLET PO SCH (21:00)
[2018-01-28] MEDS ORDERED: ATORVASTATIN 40 MG (LIPITOR) TABLET PO SCH (21:00)
[2018-01-28] MEDS: ENALAPRIL 10 MG (VASOTEC) TAB PO SCH (21:18)
[2018-01-29 04:00] VITALS: BP 128/67
[2018-01-29] MEDS: ACETAMINOPHEN 325 MG TABLET PO PRN (04:16)
[2018-01-29 06:17] LABS: HEMOGLOBIN 13.7 G/DL (13.3-17.7); MEAN PLATELET VOLUME 9.9 FL (7.4-10.4); RED BLOOD COUNT 4.33 10^6/uL (4.35-5.85); RED CELL DISTRIBUTION WIDTH 13.6 % (10.0-14.5)
[2018-01-29] MEDS: ceFAZolin INJECTION 1,000 MG in NS (IVPB) 50 ML IV SCH (06:27)
[2018-01-29 06:46] LABS: ALANINE AMINOTRANSFERASE 18 U/L (0-55); ALBUMIN 3.5 GM/DL (3.2-4.5); ALKALINE PHOSPHATASE 72 U/L (40-136); BILIRUBIN,TOTAL 0.7 MG/DL (0.1-1.0); BUN/CREATININE RATIO 10; CALCIUM 8.4 MG/DL (8.5-10.1); CARBON DIOXIDE 23 MMOL/L (21-32); CHLORIDE 107 MMOL/L (98-107); CREATININE SERUM 0.78 MG/DL (0.60-1.30); GFR ESTIMATED > 60; GLUCOSE 86 MG/DL (70-105); POTASSIUM 3.6 MMOL/L (3.6-5.0); SODIUM 139 MMOL/L (135-145); TOTAL PROTEIN 5.5 GM/DL (6.4-8.2)
--- NOTE | 2018-01-29 08:00 | Progress Note-Cardiology ---
Cardiology SOAP Progress Note Subjective: In bed. C/O some tenderness at the device insertio site. No c/o dizziness, CP , palpitations, syncope or near syncope. Sling in place to left arm. Objective: I&O/Vital Signs 01/28/18 01/29/18 01/29/18 01/29/18 23:52 01:00 04:00 07:00 Temp 97.0 97.0 Pulse 58 61 62 56 Resp 20 20 B/P (MAP) 122/63 (82) 128/67 (87) Pulse Ox 95 95 O2 Delivery Room Air Room Air 01/29/18 08:42 Temp 96.0 Pulse 52 Resp 16 B/P (MAP) 126/68 (87) Pulse Ox 96 O2 Delivery Room Air 01/29/18 00:00 Intake Total 1180 ml Output Total 950 ml Balance 230 ml Weight (Pounds): 178 Weight (Ounces): 0.0 Weight (Calculated Kilograms): 80.693676 Side: left Device Insertion Site: without hematoma Swelling: mild amount of swelling Drainage: No Bruising: moderated bruising Constitutional: AAO x 3, well-developed, well-nourished Respiratory: No accessory muscle use, No respiratory distress; chest expansion is symmetric, chest is bilaterally symmetric, lungs clear to auscultation Cardiovascular: regular rate-rhythm; No JVD; S1 and S2 Gastrointestional: No tender; soft, round, audible bowel sounds Extremities: no lower extremity edema bilateral Neurologic/Psychiatric: grossly intact Skin: No rash, No ulcerations Results/Procedures: Labs Laboratory Tests 01/29/18 05:30: White Blood Count 7.0, Red Blood Count 4.33L, Hemoglobin 13.7, Hematocrit 39L, Mean Corpuscular Volume 90, Mean Corpuscular Hemoglobin 32, Mean Corpuscular Hemoglobin Concent 35, Red Cell Distribution Width 13.6, Platelet Count 161, Mean Platelet Volume 9.9, Sodium Level 139, Potassium Level 3.6, Chloride Level 107, Carbon Dioxide Level 23, Anion Gap 9, Blood Urea Nitrogen 8, Creatinine 0.78, Estimat Glomerular Filtration Rate > 60, BUN/Creatinine Ratio 10, Glucose Level 86, Calcium Level 8.4L, Corrected Calcium 8.8, Total Bilirubin 0.7, Aspartate Amino Transf (AST/SGOT) 21, Alanine Aminotransferase (ALT/SGPT) 18, Alkaline Phosphatase 72, Total Protein 5.5L, Albumin 3.5 Laboratory Tests 01/28/18 07:15 01/29/18 05:30 Procedures S/P AICD implant on 01-28-18. Please refer to Dr. Camara's op note for details. A/P: Assessment: S/P single chamber Medtronic PPM implant on 01-28-18 - device, functioning normally per interrogation carried out this morning Sinus bradycardia - asymptomatic CAD. LAD stent (3.0 x 16 Taxus) at [facility] in [place], [place] in Jan 2006 following [place]; subsequently PTCA for stent thrombosis of that stent in May 2006 at the same hosp. LVEF reported to be 40% (with anterior hypo) on cath of 2006. Last card cath of 09/24/17 showed 99% in-stent restenosis in the mid left anterior descending artery to which successful balloon angioplasty was carried out and which reduced the stenosis to less than 30%. The mid left anterior descending artery had 90% stenosis to which successful stenting was carried out (Alpine Xience 2.25 x 12 mm) with reduction of stenosis to 0% residual. The left circumflex artery has moderate mid vessel disease. The right coronary artery has mild diffuse disease. The ostial left main coronary artery has approximately 30% to 40% stenosis. Impairment of global left ventricular systolic function with apical akinesis, dyskinesis and left ventricular ejection fraction of 30% to 35%. Normal left ventricular end-diastolic pressure. No significant mitral regurgitation. Ischemic dilated cardiomyopathy. Last echo of 01/16/18 showed LVEF 30-35%, mild MR, PASP approx 30 mmHg, mild martinez dysfunction. Echo of 09/17/17 showed LVEF 30- 35%, ajit of mid ant, anteroseptal and apical riley, mild MR, PASP 35 mmHg, Previous echo of 06/19/17 showed cardiomeg with LVEF 15-20% and grade I martinez dysfunction and normal PASP MPI of 08/01/17: large apical [place], apical dyskinesis, mod sev cardiomegaly, LVEF 25% Intolerant to BB in the past d/t hypotension and dizziness Carotid arterial disease. Last carotid u/s of 01/17/18 a showed 60-79% R ICA stenosis and 40-59% L ICA stenosis Chronic systolic CHF - clinically compensated Hyperlipidemia, by history Abnormal ECG. ECG of 06/27/17 shows NSR with occ PVC and nonspecific ST abn Microcytic, hypochromic anemia on blood work of 06/28/17, followed by Dr Zarco , improved on blood work of 09/17/17 Quit smoking in late September 2017 Plan: S/P AICD implant on 01-28-18 - device functioning normally per interrogation carried out this morning Sinus bradycardia - albeit asymptomatic - we will reduce BB dose to 12.5 mg BID Continue current medication regimen Ceftin 500mg p.o. BID x 5 days Appt for site check at out office on Saturday F/U appt in 2-3 weeks We have discussed activity restrictions and answered questions Physician Assessment Physician Assessment No cp (except soreness at site of device implant), no palp or syncope or shortness of breath. Wishes to go home Lungs: clear Cor: reg Ext: no c/c/e A&R * As documented in our note above that I updated (italics) and as noted below * We advised post-op device management * We advised outpat f/u * We recommended continuation of previous card regimen * We answered his questions CRISTI ARUAJO Jan 29, 2018 08:00 ANSHU CAMARA MD FACP FAC CCDS Jan 29, 2018 09:30
[2018-01-29 08:42] VITALS: BP 126/68
[2018-01-29] MEDS ORDERED: CEFU500T63 PO (08:57)
--- NOTE | 2018-01-29 08:59 | Discharge Inst-Cardiology ---
Discharge Inst-Cardiac Discharge Medications New Medications: Cefuroxime Axetil (Cefuroxime) 500 Mg Tablet 500 MG PO BID for 5 Days, #10 TAB 0 Refills Continued Medications: Aspirin (Aspirin) 81 Mg Tab.chew 81 MG PO DAILY, TAB Atorvastatin Calcium (Lipitor) 40 Mg Tablet 40 MG PO HS, TAB Carvedilol (Carvedilol) 12.5 Mg Tablet 25 MG PO BID, TAB Clopidogrel Bisulfate (Plavix) 75 Mg Tablet 75 MG PO DAILY, TAB Digoxin (Digoxin) 125 Mcg Tablet 125 MCG PO DAILY, TAB Enalapril Maleate (Enalapril Maleate) 10 Mg Tablet 10 MG PO BID, TAB Pantoprazole Sodium (Protonix) 40 Mg Tablet.dr 40 MG PO DAILY, TAB New, Converted or Re-Newed RX: Transmitted to Pharmacy Patient Instructions Patient Instructions: Appointment on Saturday, January 31, [address] Camara's nurse for device site check Please schedule follow up appointment to see Dr. Camara on February 12, 2018 Orders-Post D/C & Referrals Pneu Vac Indicated: Yes CRISTI ARAUJO Jan 29, 2018 08:59
[2018-01-29] MEDS ORDERED: CARVEDILOL 12.5 MG (COREG) TABLET PO NR (09:00)
[2018-01-29] MEDS ORDERED: DIGOXIN 0.125 MG (LANOXIN) TAB PO SCH (09:00)
[2018-01-29] MEDS ORDERED: PANTOPRAZOLE 40 MG (PROTONIX) TAB PO SCH (09:00)
[2018-01-29] MEDS ORDERED: ASPIRIN 81 MG CHEW (CHILDREN'S ASA) PO SCH (09:00)
[2018-01-29] MEDS ORDERED: CLOPIDOGREL 75 MG (PLAVIX) TABLET PO SCH (09:00)
[2018-01-29] MEDS: ENALAPRIL 10 MG (VASOTEC) TAB PO SCH (09:08)
[2018-01-29] MEDS ORDERED: CARV12.52 PO (10:10)
[2018-01-29 10:30] VITALS: BP 126/68
== END 2018-01-29 10:30 | disposition home or self-care (01) ==
LOC: CATH 06:59 → 4TH 09:38 → CATH 01-29 10:30
PROVIDERS: ATTEND Internal Medicine Cardiovascular Disease
DX: R00.1 Bradycardia, unspecified (principal); I25.10 Atherosclerotic heart disease of native coronary artery without angina pectoris; Z95.5 Presence of coronary angioplasty implant and graft; I42.0 Dilated cardiomyopathy; I65.23 Occlusion and stenosis of bilateral carotid arteries; I50.22 Chronic systolic (congestive) heart failure; E78.5 Hyperlipidemia, unspecified; D50.9 Iron deficiency anemia, unspecified; Z79.82 Long term (current) use of aspirin; Z79.899 Other long term (current) drug therapy; Z87.891 Personal history of nicotine dependence
CPT/HCPCS: 33249; 36415; 71046; 80053; 80061; 85027; 85610; 85730; 87081; 90686; 93005

== ENCOUNTER → 2018-02-26 | Outpatient (CLI) | payer BC ==
[~2018-02-26] MED LIST changes: +CARV12.52 PO; +CEFU500T63 PO; +CLOP75TA69 PO
[2018-02-26 11:16] LABS: BUN/CREATININE RATIO 15; CALCIUM 9.2 MG/DL (8.5-10.1); CARBON DIOXIDE 24 MMOL/L (21-32); CHLORIDE 104 MMOL/L (98-107); CREATININE SERUM 0.89 MG/DL (0.60-1.30); GFR ESTIMATED > 60; GLUCOSE 100 MG/DL (70-105); MAGNESIUM 2.3 MG/DL (1.8-2.4); POTASSIUM 3.7 MMOL/L (3.6-5.0); SODIUM 139 MMOL/L (135-145)
== END ==
LOC: LAB 10:43
PROVIDERS: ATTEND Nurse Practitioner Family
DX: I25.5 Ischemic cardiomyopathy (principal); I50.21 Acute systolic (congestive) heart failure
CPT/HCPCS: 36415; 80048; 83735

== ENCOUNTER → 2018-03-05 | Outpatient (CLI) | payer BC ==
[2018-03-05 13:34] LABS: BUN/CREATININE RATIO 12; CALCIUM 9.3 MG/DL (8.5-10.1); CARBON DIOXIDE 26 MMOL/L (21-32); CHLORIDE 105 MMOL/L (98-107); CREATININE SERUM 0.93 MG/DL (0.60-1.30); GFR ESTIMATED > 60; GLUCOSE 81 MG/DL (70-105); POTASSIUM 3.6 MMOL/L (3.6-5.0); SODIUM 140 MMOL/L (135-145)
== END ==
LOC: LAB 13:03
PROVIDERS: ATTEND Nurse Practitioner Family
DX: I25.5 Ischemic cardiomyopathy (principal); I50.21 Acute systolic (congestive) heart failure
CPT/HCPCS: 36415; 80048; 83735

== ENCOUNTER → 2018-03-20 | Outpatient (CLI) | payer BC ==
[2018-03-20 09:21] LABS: BUN/CREATININE RATIO 13; CALCIUM 9.1 MG/DL (8.5-10.1); CARBON DIOXIDE 22 MMOL/L (21-32); CHLORIDE 106 MMOL/L (98-107); CREATININE SERUM 1.05 MG/DL (0.60-1.30); GFR ESTIMATED > 60; GLUCOSE 117 MG/DL (70-105); POTASSIUM 4.4 MMOL/L (3.6-5.0); SODIUM 138 MMOL/L (135-145)
== END ==
LOC: LAB 08:52
PROVIDERS: ATTEND Nurse Practitioner Family
DX: E87.6 Hypokalemia (principal); I25.10 Atherosclerotic heart disease of native coronary artery without angina pectoris; I50.22 Chronic systolic (congestive) heart failure; I25.5 Ischemic cardiomyopathy
CPT/HCPCS: 36415; 80048

== ENCOUNTER → 2018-06-18 | Outpatient (CLI) | payer BC ==
[2018-06-18 13:52] LABS: BASOPHILS % (AUTO) 1 % (0-10); EOSINOPHILS # (AUTO) 0.4 10^3/uL (0.0-0.3); EOSINOPHILS % (AUTO) 6 % (0-10); HEMATOCRIT 41 % (40-54); LYMPHOCYTES # (AUTO) 1.4 X 10^3 (1.0-4.0); LYMPHOCYTES % (AUTO) 21 % (12-44); MEAN CORPUSCULAR HEMOGLOBIN 31 PG (25-34); MEAN CORPUSCULAR HGB CONC 35 G/DL (32-36); MEAN CORPUSCULAR VOLUME 90 FL (80-99); MEAN PLATELET VOLUME 8.9 FL (7.4-10.4); MONOCYTES # (AUTO) 0.8 X 10^3 (0.0-1.0); MONOCYTES % (AUTO) 12 % (0-12); NEUTROPHILS # (AUTO) 4.1 X 10^3 (1.8-7.8); NEUTROPHILS % (AUTO) 60 % (42-75); PLATELET COUNT 247 10^3/uL (130-400); RED CELL DISTRIBUTION WIDTH 14.6 % (10.0-14.5); WHITE BLOOD COUNT 6.8 10^3/uL (4.3-11.0)
[2018-06-18 14:13] LABS: ALANINE AMINOTRANSFERASE 24 U/L (0-55); ALBUMIN 4.4 GM/DL (3.2-4.5); ALKALINE PHOSPHATASE 92 U/L (40-136); BILIRUBIN,TOTAL 0.4 MG/DL (0.1-1.0); BUN/CREATININE RATIO 18; CALCIUM 9.1 MG/DL (8.5-10.1); CARBON DIOXIDE 24 MMOL/L (21-32); CHLORIDE 103 MMOL/L (98-107); CREATININE SERUM 0.95 MG/DL (0.60-1.30); GFR ESTIMATED > 60; GLUCOSE 84 MG/DL (70-105); POTASSIUM 4.4 MMOL/L (3.6-5.0); SODIUM 138 MMOL/L (135-145); TOTAL PROTEIN 6.9 GM/DL (6.4-8.2)
[2018-06-18 14:23] LABS: BAND NEUTROPHILS 0 %; BASOPHILS % (MANUAL) 1 %; EOSINOPHILS % (MANUAL) 5 %; LYMPHOCYTES % (MANUAL) 23 %; MONOCYTES % (MANUAL) 9 %; NEUTROPHILS % (MANUAL) 62 %
[2018-06-18 14:24] LABS: ELLIPT/OVALOCYTES SLIGHT
--- NOTE | 2018-06-18 15:57 | Diagnostic Imaging Report ---
INDICATION: Anemia, weight loss, and fatigue. Single AP view chest. Comparison made with prior examination from 01/28/2018. FINDINGS: Heart size is normal. Mediastinum is unremarkable. Pacemaker overlies the left hemithorax. There is no pleural effusion, pneumothorax, or pneumonia. IMPRESSION: No acute cardiopulmonary abnormality. Dictated by: Dictated on workstation # [id number]
== END ==
LOC: RAD 13:35
PROVIDERS: ATTEND Family Medicine
DX: D50.9 Iron deficiency anemia, unspecified (principal); R63.4 Abnormal weight loss
CPT/HCPCS: 36415; 71045; 80053; 83615; 84436; 84443; 85007; 85027

== ENCOUNTER 2018-09-09 04:24 | Emergency (ER) | payer BC ==
[~2018-09-09] VITALS: Ht 172.7 cm; Wt 81.6 kg
--- OUTSIDE RECORDS SUMMARY | 2018-09-09 04:29 | XMS REPORT | Continuity of Care Document ---
Author Organization Unknown Address Unknown Allergies Active Description Code Type Severity Reaction Onset Reported/Identified Relationship to Patient Clinical Status Yes No Allergy Information Available [id number] Drug Allergy Unknown N/A 2017 Yes No Known Drug Allergies [id number] Drug Allergy Unknown N/A 09/24/2017 Medications There is no data. Problems Date Dx Coded Attending Type Code Diagnosis Diagnosed By 06/04/2017 SHAWNA DOMINGO MD, Ot I25.10 ATHSCL HEART DISEASE OF [place] CORONARY 06/04/2017 SHAWNA DOMINGO MD Ot 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 06/13/2017 SHAWNA DOMINGO MD Ot I25.10 ATHSCL HEART DISEASE OF [place] CORONARY 06/13/2017 SHAWNA DOMINGO MD Ot 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 06/19/2017 SHAWNA DOMINGO MD Ot I25.10 ATHSCL HEART DISEASE OF [place] CORONARY 06/19/2017 SHAWNA DOMINGO MD Ot 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 06/20/2017 SHAWNA DOMINGO MD Ot G45.8 OTH TRANSIENT CEREBRAL ISCHEMIC ATTACKS 06/20/2017 SHAWNA DOMINGO MD Ot I25.10 ATHSCL HEART DISEASE OF [place] CORONARY 06/20/2017 SHAWNA DOMINGO MD Ot G45.8 OTH TRANSIENT CEREBRAL ISCHEMIC ATTACKS 06/20/2017 SHAWNA DOMINGO MD Ot I25.10 ATHSCL HEART DISEASE OF [place] CORONARY 07/02/2017 RACHID OCAMPO FACC, ANSHU FACP CCDS Ot I25.10 ATHSCL HEART DISEASE OF [place] CORONARY 07/02/2017 RACHID OCAMPO FACC, ALI FACP CCDS Ot I42.0 DILATED CARDIOMYOPATHY 07/02/2017 RACHID OCAMPO FACC, ALI FACP CCDS Ot I65.23 OCCLUSION AND STENOSIS OF BILATERAL [place] 07/02/2017 RACHID OCAMPO FACC, ALI FACP CCDS Ot Z72.0 TOBACCO USE 07/03/2017 SHAWNA DOMINGO MD Ot G45.8 OTH TRANSIENT CEREBRAL ISCHEMIC ATTACKS 07/03/2017 CHAYO OCAMPO, SHAWNA Juan Ot I25.10 ATHSCL HEART DISEASE OF [place] CORONARY 07/11/2017 RACHID OCAMPO FACC, ALI FACP CCDS Ot I25.10 ATHSCL HEART DISEASE OF [place] CORONARY 07/11/2017 RACHID OCAMPO FACC, ALI FACP CCDS Ot I42.0 DILATED CARDIOMYOPATHY 07/11/2017 RACHID OCAMPO FACC, ALI FACP CCDS Ot I65.23 OCCLUSION AND STENOSIS OF BILATERAL [place] 07/11/2017 RACHID OCAMPO FACC, ALI FACP CCDS Ot Z72.0 TOBACCO USE 08/01/2017 RACHID OCAMPO FACC, ALI FACP CCDS Ot I25.10 ATHSCL HEART DISEASE OF [place] CORONARY 08/01/2017 RACHID OCAMPO FACC, ALI FACP CCDS Ot I42.0 DILATED CARDIOMYOPATHY 08/01/2017 RACHID OCAMPO FACC, ALI FACP CCDS Ot Z72.0 TOBACCO USE 08/01/2017 RACHID OCAMPO FACC, ALI FACP CCDS Ot I25.10 ATHSCL HEART DISEASE OF [place] CORONARY 08/01/2017 RACHID OCAMPO FACC, ALI FACP CCDS Ot I42.0 DILATED CARDIOMYOPATHY 08/01/2017 RACHID OCAMPO FACC, ALI FACP CCDS Ot Z72.0 TOBACCO USE 08/05/2017 RACHID OCAMPO FACC, ALI FACP CCDS Ot I25.10 ATHSCL HEART DISEASE OF [place] CORONARY 08/05/2017 RACHID OCAMPO FACC, ALI FACP CCDS Ot I42.0 DILATED CARDIOMYOPATHY 08/05/2017 RACHID OCAMPO FACC, ALI FACP CCDS Ot I65.29 OCCLUSION AND STENOSIS OF UNSPECIFIED CA 08/05/2017 RACHID OCAMPO FACC, ALI FACP CCDS Ot Z72.0 TOBACCO USE 08/08/2017 RACHID OCAMPO FACC, ALI FACP CCDS Ot I25.10 ATHSCL HEART DISEASE OF [place] CORONARY 08/08/2017 RACHID OCAMPO FACC, ALI FACP CCDS Ot I42.0 DILATED CARDIOMYOPATHY 08/08/2017 RACHID OCAMPO FACC, ALI FACP CCDS Ot I65.29 OCCLUSION AND STENOSIS OF UNSPECIFIED CA 08/08/2017 RACHID OCAMPO FACC, ALI FACP CCDS Ot Z72.0 TOBACCO USE 08/09/2017 RACHID OCAMPO FACC, ALI FACP CCDS Ot I25.10 ATHSCL HEART DISEASE OF [place] CORONARY 08/09/2017 RACHID OCAMPO FACC, ALI FACP CCDS Ot I42.0 DILATED CARDIOMYOPATHY 08/09/2017 RACHID HERNANDEZC, ALI FACP CCDS Ot Z72.0 TOBACCO USE 08/22/2017 RACHID HERNANDEZC, ALI FACP CCDS Ot I25.10 ATHSCL HEART DISEASE OF [place] CORONARY 08/22/2017 RACHID HERNANDEZC, ALI FACP CCDS Ot I42.0 DILATED CARDIOMYOPATHY 08/22/2017 RACHID HERNANDEZC, ALI FACP CCDS Ot Z72.0 TOBACCO USE 09/17/2017 SHAWNA DOMINGO MD Ot I25.10 ATHSCL HEART DISEASE OF [place] CORONARY 09/17/2017 SHAWNA DOMINGO MD Ot 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 09/17/2017 SHAWNA DOMINGO MD Ot G45.8 OTH TRANSIENT CEREBRAL ISCHEMIC ATTACKS 09/17/2017 SHAWNA DOMINGO MD Ot I25.10 ATHSCL HEART DISEASE OF [place] CORONARY 09/17/2017 RACHID OCAMPO FACC, ALI FACP CCDS Ot I25.10 ATHSCL HEART DISEASE OF [place] CORONARY 09/17/2017 RACHID HERNANDEZC, ALI FACP CCDS Ot I42.0 DILATED CARDIOMYOPATHY 09/17/2017 RACHID OCAMPO FACC, ALI FACP CCDS Ot I65.23 OCCLUSION AND STENOSIS OF BILATERAL [place] 09/17/2017 RACHID HERNANDEZC, ALI FACP CCDS Ot Z72.0 TOBACCO USE 09/17/2017 RACHID OCAMPO FACC, ALI FACP CCDS Ot I25.10 ATHSCL HEART DISEASE OF [place] CORONARY 09/17/2017 RACHID OCAMPO FACC, ALI FACP CCDS Ot I42.0 DILATED CARDIOMYOPATHY 09/17/2017 RACHID OCAMPO FACC, ALI FACP CCDS Ot Z72.0 TOBACCO USE 09/17/2017 RACHID HERNANDEZC, ALI FACP CCDS Ot I25.10 ATHSCL HEART DISEASE OF [place] CORONARY 09/17/2017 RACHID HERNANDEZC, ALI FACP CCDS Ot I42.0 DILATED CARDIOMYOPATHY 09/17/2017 RACHID OCAMPO FACC, ALI FACP CCDS Ot Z72.0 TOBACCO USE 09/19/2017 RACHID HERNANDEZC, ALI FACP CCDS Ot I25.10 ATHSCL HEART DISEASE OF [place] CORONARY 09/19/2017 RACHID OCAMPO FACC, ALI FACP [...] CCDS Ot I25.10 ATHSCL HEART DISEASE OF [place] CORONARY 09/26/2017 RACHID OCAMPO FACC, ALI FACP [...] Ot Z72.0 TOBACCO USE 09/26/2017 CRISTI ARAUJO HEAT AND FROST INSULATOR Ot D50.9 IRON DEFICIENCY ANEMIA, UNSPECIFIED 09/26/2017 CRISTI ARAUJO L HEAT AND FR[employer] INSULATOR Ot E78.5 HYPERLIPIDEMIA, UNSPECIFIED 09/26/2017 CRISTI ARAUJO L HEAT AND FROST INSULATOR Ot F17.210 NICOTINE DEPENDENCE, CIGARETTES, UNCOMPL 09/26/2017 CRISTI ARAUJO L HEAT AND FROST INSULATOR Ot I25.10 ATHSCL HEART DISEASE OF [place] CORONARY 09/26/2017 CRISTI ARAUJO L HEAT AND FROST INSULATOR Ot I25.5 ISCHEMIC CARDIOMYOPATHY 09/26/2017 CRISTI ARAUJO L HEAT AND FROST INSULATOR Ot I50.22 CHRONIC SYSTOLIC (CONGESTIVE) HEART FAIL 09/26/2017 CRISTI ARAUJO L HEAT AND FROST INSULATOR Ot 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 09/26/2017 CRISTI ARAUJO L HEAT AND FROST INSULATOR Ot T82.855A STENOSIS OF CORONARY ARTERY STENT, INITI 09/26/2017 TIARAZAINAB HAYESHER L HEAT AND FROST INSULATOR Ot Z79.82 RN STAFF (CURRENT) USE OF ASPIRIN 09/26/2017 BAIMA, CRISTI L HEAT AND FROST INSULATOR Ot Z79.899 OTHER [facility] (CURRENT) DRUG THERAPY 09/26/2017 BAIMA, CRISTI L HEAT AND FR[employer] INSULATOR Ot Z95.5 PRESENCE OF CORONARY ANGIOPLASTY IMPLANT 09/26/2017 BAIMA, CRISTI L HEAT AND FROST INSULATOR Ot D50.9 IRON DEFICIENCY ANEMIA, UNSPECIFIED 09/26/2017 BAIMA, CRISTI L HEAT AND FROST INSULATOR Ot E78.5 HYPERLIPIDEMIA, UNSPECIFIED 09/26/2017 BAIMA, CRISTI L HEAT AND FROST INSULATOR Ot F17.210 NICOTINE DEPENDENCE, CIGARETTES, UNCOMPL 09/26/2017 BAIMA, CRISTI L HEAT AND FROST INSULATOR Ot I25.10 ATHSCL HEART DISEASE OF [place] CORONARY 09/26/2017 BAIMA, CRISTI L HEAT AND FROST INSULATOR Ot I25.5 ISCHEMIC CARDIOMYOPATHY 09/26/2017 BAIMA, CRISTI L HEAT AND FROST INSULATOR Ot I50.22 CHRONIC SYSTOLIC (CONGESTIVE) HEART FAIL 09/26/2017 BAIMA, CRISTI L HEAT AND FROST INSULATOR Ot 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 09/26/2017 BAIMA, CRISTI L HEAT AND FROST INSULATOR Ot T82.855A STENOSIS OF CORONARY ARTERY STENT, INITI 09/26/2017 VAN CRISTI L HEAT AND FROST INSULATOR Ot Z79.82 RN STAFF (CURRENT) USE OF ASPIRIN 09/26/2017 BAIMA, CRISTI L HEAT AND FROST INSULATOR Ot Z79.899 OTHER [facility] (CURRENT) DRUG THERAPY 09/26/2017 BAIMA, CRISTI L HEAT AND FROST INSULATOR Ot Z95.5 PRESENCE OF CORONARY ANGIOPLASTY IMPLANT 09/27/2017 VAN CRISTI L HEAT AND FROST INSULATOR Ot D50.9 IRON DEFICIENCY ANEMIA, UNSPECIFIED 09/27/2017 BAIMA, CRISTI L HEAT AND FROST INSULATOR Ot E78.5 HYPERLIPIDEMIA, UNSPECIFIED 09/27/2017 BAIMA, CRISTI L HEAT AND FROST INSULATOR Ot F17.210 NICOTINE DEPENDENCE, CIGARETTES, UNCOMPL 09/27/2017 BAIMA, CRISTI L HEAT AND FROST INSULATOR Ot I25.10 ATHSCL HEART DISEASE OF [place] CORONARY 09/27/2017 BAIMA, CRISTI L HEAT AND FROST INSULATOR Ot I25.5 ISCHEMIC CARDIOMYOPATHY 09/27/2017 BAIMA, CRISTI L HEAT AND FROST INSULATOR Ot I50.22 CHRONIC SYSTOLIC (CONGESTIVE) HEART FAIL 09/27/2017 BAIMA, CRISTI L HEAT AND FROST INSULATOR Ot 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 09/27/2017 CRISTI ARAUJO HEAT AND FROST INSULATOR Ot T82.855A STENOSIS OF CORONARY ARTERY STENT, INITI 09/27/2017 CRISTI ARAUJO HEAT AND FROST INSULATOR Ot Z79.82 RN STAFF (CURRENT) USE OF ASPIRIN 09/27/2017 CRISTI ARAUJO HEAT AND FROST INSULATOR Ot Z79.899 OTHER RN STAFF (CURRENT) DRUG THERAPY 09/27/2017 CRISTI ARAUJO HEAT AND FROST INSULATOR Ot Z95.5 PRESENCE OF CORONARY ANGIOPLASTY IMPLANT 10/07/2017 RACHID OCAMPO FACC, ALI FACP CCDS Ot I25.10 ATHSCL HEART DISEASE OF [place] CORONARY 10/07/2017 RACHID OCAMPO FACC, ALI FACP CCDS Ot I34.0 NONRHEUMATIC MITRAL (VALVE) INSUFFICIENC 10/07/2017 RACHID OCAMPO FACC, ALI FACP CCDS Ot I42.0 DILATED CARDIOMYOPATHY 10/07/2017 RACHID OCAMPO FACC, ALI FACP CCDS Ot I50.22 CHRONIC SYSTOLIC (CONGESTIVE) HEART FAIL 10/07/2017 RACHID OCAMPO FACC, ANSHU FACP CCDS Ot I65.23 OCCLUSION AND STENOSIS OF BILATERAL [place] 10/07/2017 RACHID OCAMPO FACC, ALI FACP CCDS Ot Z72.0 TOBACCO USE 01/09/2018 SHAWNA DOMINGO MD Ot I25.10 ATHSCL HEART DISEASE OF [place] CORONARY 01/09/2018 SHAWNA DOMINGO MD Ot 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 01/09/2018 SHAWNA DOMINGO MD Ot G45.8 OTH TRANSIENT CEREBRAL ISCHEMIC ATTACKS 01/09/2018 SHAWNA DOMINGO MD Ot I25.10 ATHSCL HEART DISEASE OF [place] CORONARY 01/09/2018 RACHID OCAMPO FACC, ALI FACP CCDS Ot I25.10 ATHSCL HEART DISEASE OF [place] CORONARY 01/09/2018 RACHID OCAMPO FACC, ALI FACP CCDS Ot I42.0 DILATED CARDIOMYOPATHY 01/09/2018 RACHID OCAMPO FACC, ALI FACP CCDS Ot I65.23 OCCLUSION AND STENOSIS OF BILATERAL [place] 01/09/2018 RACHID OCAMPO FACC, ALI FACP CCDS Ot Z72.0 TOBACCO USE 01/09/2018 RACHID OCAMPO FACC, ALI FACP CCDS Ot I25.10 ATHSCL HEART DISEASE OF [place] CORONARY 01/09/2018 RACHID MD FACC, ALI FACP CCDS Ot I42.0 DILATED CARDIOMYOPATHY 01/09/2018 RACHID OCAMPO FACC, ALI FACP CCDS Ot Z72.0 TOBACCO USE 01/09/2018 RACHID OCAMPO FACC, ALI FACP CCDS Ot I25.10 ATHSCL HEART DISEASE OF [place] CORONARY 01/09/2018 RACHID OCAMPO FACC, ALI FACP CCDS Ot I42.0 DILATED CARDIOMYOPATHY 01/09/2018 RACHID OCAMPO FACC, ALI FACP CCDS Ot Z72.0 TOBACCO USE 01/09/2018 RACHID OCAMPO FACC, ALI FACP CCDS Ot I25.10 ATHSCL HEART DISEASE OF [place] CORONARY 01/09/2018 RACHID OCAMPO FACC, ALI FACP [...] MD Ot I25.10 ATHSCL HEART DISEASE OF [place] CORONARY 01/16/2018 SHAWNA DOMINGO MD Ot 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 01/16/2018 SHAWNA DOMINGO MD Ot G45.8 OTH TRANSIENT CEREBRAL ISCHEMIC ATTACKS 01/16/2018 SHAWNA DOMINGO MD Ot I25.10 ATHSCL HEART DISEASE OF [place] CORONARY 01/16/2018 RACHID OCAMPO FACC, ALI FACP CCDS Ot I25.10 ATHSCL HEART DISEASE OF [place] CORONARY 01/16/2018 RACHID HERNANDEZC, ALI FACP CCDS Ot I42.0 DILATED CARDIOMYOPATHY 01/16/2018 RACHID OCAMPO FACC, ALI FACP CCDS Ot I65.23 OCCLUSION AND STENOSIS OF BILATERAL [place] 01/16/2018 RACHID OCAMPO FACC, ALI FACP CCDS Ot Z72.0 TOBACCO USE 01/16/2018 RACHID HERNANDEZC, ALI FACP CCDS Ot I25.10 ATHSCL HEART DISEASE OF [place] CORONARY 01/16/2018 RACHID OCAMPO FACC, ALI FACP CCDS Ot I42.0 DILATED CARDIOMYOPATHY 01/16/2018 RACHID OCAMPO FACC, ALI FACP CCDS Ot Z72.0 TOBACCO USE 01/16/2018 RACHID OCAMPO FACC, ALI FACP CCDS Ot I25.10 ATHSCL HEART DISEASE OF [place] CORONARY 01/16/2018 RACHID OCAMPO FACC, ALI FACP CCDS Ot I42.0 DILATED CARDIOMYOPATHY 01/16/2018 RACHID OCAMPO FACDrake, ALI FACP CCDS Ot Z72.0 TOBACCO USE 01/16/2018 RACHID OCAMPO FACC, ALI FACP CCDS Ot I25.10 ATHSCL HEART DISEASE OF [place] CORONARY 01/16/2018 RACHID OCAMPO FACC, ALI FACP CCDS Ot I34.0 NONRHEUMATIC MITRAL (VALVE) INSUFFICIENC 01/16/2018 RACHID OCAMPO FACC, ALI FACP CCDS Ot I42.0 DILATED CARDIOMYOPATHY 01/16/2018 RACHID OCAMPO FACC, ALI FACP CCDS Ot I50.22 CHRONIC SYSTOLIC (CONGESTIVE) HEART FAIL 01/16/2018 RACHID OCAMPO FACC, ALI FACP CCDS Ot I65.23 OCCLUSION AND STENOSIS OF BILATERAL [place] 01/16/2018 RACHID OCAMPO FACC, ALI FACP CCDS Ot Z72.0 TOBACCO USE 01/21/2018 CRISTI ARAUJO HEAT AND FROST INSULATOR Ot I25.10 ATHSCL HEART DISEASE OF [place] CORONARY 01/21/2018 CRISTI ARAUJO HEAT AND FROST INSULATOR Ot I42.0 DILATED CARDIOMYOPATHY 01/21/2018 CRISTI ARAUJO HEAT AND FROST INSULATOR Ot I50.22 CHRONIC SYSTOLIC (CONGESTIVE) HEART FAIL 01/21/2018 CRISTI ARAUJO HEAT AND FROST INSULATOR Ot I77.89 OTHER SPECIFIED DISORDERS OF ARTERIES AN 01/21/2018 CRISTI ARAUJO HEAT AND FROST INSULATOR Ot Z72.0 TOBACCO USE 01/29/2018 RACHID OCAMPO FACC, ALI FACP CCDS Ot D50.9 IRON DEFICIENCY ANEMIA, UNSPECIFIED 01/29/2018 RACHID OCAMPO FACC, ALI FACP CCDS Ot E78.5 HYPERLIPIDEMIA, UNSPECIFIED 01/29/2018 RACHID HERNANDEZC, ALI FACP CCDS Ot I25.10 ATHSCL HEART DISEASE OF [place] CORONARY 01/29/2018 RACHID OCAMPO FACC, ALI FACP CCDS Ot I42.0 DILATED CARDIOMYOPATHY 01/29/2018 RACHID OCAMPO FACC, ANSHU FACP CCDS Ot I50.22 CHRONIC SYSTOLIC (CONGESTIVE) HEART FAIL 01/29/2018 RACHID OCAMPO FACC, ALI FACP CCDS Ot I65.23 OCCLUSION AND STENOSIS OF BILATERAL [place] 01/29/2018 RACHID OCAMPO FACC, ALI FACP CCDS Ot R00.1 BRADYCARDIA, UNSPECIFIED 01/29/2018 RACHID OCAMPO FACC, ALI FACP CCDS Ot Z79.82 [facility] (CURRENT) USE OF ASPIRIN 01/29/2018 RACHID OCAMPO FACC, ALI FACP CCDS Ot Z79.899 OTHER RN STAFF (CURRENT) DRUG THERAPY 01/29/2018 RACHID OCAMPO FACC, ANSHU FACP CCDS Ot Z87.891 PERSONAL HISTORY OF NICOTINE DEPENDENCE 01/29/2018 RACHID OCAMPO FACC, ALI FACP CCDS Ot Z95.5 PRESENCE OF CORONARY ANGIOPLASTY IMPLANT 01/29/2018 CRISTI ARAUJO HEAT AND FROST INSULATOR Ot I25.10 ATHSCL HEART DISEASE OF [place] CORONARY 01/29/2018 CRISTI ARAUJO HEAT AND FROST INSULATOR Ot I42.0 DILATED CARDIOMYOPATHY 01/29/2018 CRISTI ARAUJO HEAT AND FROST INSULATOR Ot I50.22 CHRONIC SYSTOLIC (CONGESTIVE) HEART FAIL 01/29/2018 CRISTI ARAUJO HEAT AND FROST INSULATOR Ot I77.89 OTHER SPECIFIED DISORDERS OF ARTERIES AN 01/29/2018 CRISTI ARAUJO HEAT AND FROST INSULATOR Ot Z72.0 TOBACCO USE 02/03/2018 RACHID OCAMPO FACC, ANSHU FACP CCDS Ot D50.9 IRON DEFICIENCY ANEMIA, UNSPECIFIED 02/03/2018 RACHID OCAMPO FACC, ALI FACP CCDS Ot E78.5 HYPERLIPIDEMIA, UNSPECIFIED 02/03/2018 RACHID OCAMPO FACC, ALI FACP CCDS Ot I25.10 ATHSCL HEART DISEASE OF [place] CORONARY 02/03/2018 RACHID OCAMPO FACC, ALI FACP CCDS Ot I42.0 DILATED CARDIOMYOPATHY 02/03/2018 RACHID OCAMPO FACC, ALI FACP CCDS Ot I50.22 CHRONIC SYSTOLIC (CONGESTIVE) HEART FAIL 02/03/2018 RACHID OCAMPO FACC, ALI FACP CCDS Ot I65.23 OCCLUSION AND STENOSIS OF BILATERAL [place] 02/03/2018 RACHID OCAMPO FACC, ANSHU FACP CCDS Ot R00.1 BRADYCARDIA, UNSPECIFIED 02/03/2018 RACHID OCAMPO FACC, ALI FACP CCDS Ot Z79.82 [facility] (CURRENT) USE OF ASPIRIN 02/03/2018 RACHID OCAMPO FACC, ALI FACP CCDS Ot Z79.899 OTHER [facility] (CURRENT) DRUG THERAPY 02/03/2018 RACHID OCAMPO FACC, ALI FACP CCDS Ot Z87.891 PERSONAL HISTORY OF NICOTINE DEPENDENCE 02/03/2018 RACHID OCAMPO FACC, ALI FACP CCDS Ot Z95.5 PRESENCE OF CORONARY ANGIOPLASTY IMPLANT 02/05/2018 SHAWNA DOMINGO MD Ot I25.10 ATHSCL HEART DISEASE OF [place] CORONARY 02/05/2018 SHAWNA DOMINGO MD Ot 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 02/05/2018 SHAWNA DOMINGO MD Ot G45.8 OTH TRANSIENT CEREBRAL ISCHEMIC ATTACKS 02/05/2018 SHAWNA DOMINGO MD Ot I25.10 ATHSCL HEART DISEASE OF [place] CORONARY 02/05/2018 RACHID OCAMPO FACC, ALI FACP CCDS Ot I25.10 ATHSCL HEART DISEASE OF [place] CORONARY 02/05/2018 RACHID OCAMPO FACC, ALI FACP CCDS Ot I42.0 DILATED CARDIOMYOPATHY 02/05/2018 RACHID OCAMPO FACC, ALI FACP CCDS Ot I65.23 OCCLUSION AND STENOSIS OF BILATERAL [place] 02/05/2018 RACHID OCAMPO FACC, ALI FACP CCDS Ot Z72.0 TOBACCO USE 02/05/2018 RACHID OCAMPO FACC, ALI FACP CCDS Ot I25.10 ATHSCL HEART DISEASE OF [place] CORONARY 02/05/2018 RACHID OCAMPO FACC, ALI FACP CCDS Ot I42.0 DILATED CARDIOMYOPATHY 02/05/2018 RACHID OCAMPO FACC, ALI FACP CCDS Ot Z72.0 TOBACCO USE 02/05/2018 RACHID HERNANDEZC, ALI FACP CCDS Ot I25.10 ATHSCL HEART DISEASE OF [place] CORONARY 02/05/2018 RACHID OCAMPO FACC, ALI FACP CCDS Ot I42.0 DILATED CARDIOMYOPATHY 02/05/2018 RACHID HERNANDEZC, ALI FACP CCDS Ot Z72.0 TOBACCO USE 02/05/2018 RACHID HERNANDEZC, ALI FACP CCDS Ot I25.10 ATHSCL HEART DISEASE OF [place] CORONARY 02/05/2018 RACHID OCAMPO FACC, ALI FACP CCDS Ot I34.0 NONRHEUMATIC MITRAL (VALVE) INSUFFICIENC 02/05/2018 RACHID OCAMPO FACC, ALI FACP CCDS Ot I42.0 DILATED CARDIOMYOPATHY 02/05/2018 RACHID OCAMPO FACDrake, ALI FACP CCDS Ot I50.22 CHRONIC SYSTOLIC (CONGESTIVE) HEART FAIL 02/05/2018 RACHID OCAMPO FACC, ALI FACP CCDS Ot I65.23 OCCLUSION AND STENOSIS OF BILATERAL [place] 02/05/2018 RACHID OCAMPO FACC, ALI FACP CCDS Ot Z72.0 TOBACCO USE 02/05/2018 CRISTI ARAUJO HEAT AND FROST INSULATOR Ot I25.10 ATHSCL HEART DISEASE OF [place] CORONARY 02/05/2018 ZAINAB ARAUJOHER L HEAT AND FROST INSULATOR Ot I42.0 DILATED CARDIOMYOPATHY 02/05/2018 CRISTI ARAUJO HEAT AND FROST INSULATOR Ot I50.22 CHRONIC SYSTOLIC (CONGESTIVE) HEART FAIL 02/05/2018 CRISTI ARAUJO HEAT AND FROST INSULATOR Ot I77.89 OTHER SPECIFIED DISORDERS OF ARTERIES AN 02/05/2018 CRISTI ARAUJO HEAT AND FROST INSULATOR Ot Z72.0 TOBACCO USE 02/05/2018 SHAWNA DOMINGO MD Ot I25.10 ATHSCL HEART DISEASE OF [place] CORONARY 02/05/2018 SHAWNA DOMINGO MD Ot 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 02/05/2018 SHAWNA DOMINGO MD Ot G45.8 OTH TRANSIENT CEREBRAL ISCHEMIC ATTACKS 02/05/2018 SHAWNA DOMINGO MD Ot I25.10 ATHSCL HEART DISEASE OF [place] CORONARY 02/05/2018 RACHID OCAMPO FACC, ALI FACP CCDS Ot I25.10 ATHSCL HEART DISEASE OF [place] CORONARY 02/05/2018 RACHID OCAMPO FACC, ANSHU FACP CCDS Ot I42.0 DILATED CARDIOMYOPATHY 02/05/2018 RACHID OCAMPO FACC, ANSHU FACP CCDS Ot I65.23 OCCLUSION AND STENOSIS OF BILATERAL [place] 02/05/2018 RACHID OCAMPO FACC, ALI FACP CCDS Ot Z72.0 TOBACCO USE 02/05/2018 RACHID OCAMPO FACC, ALI FACP CCDS Ot I25.10 ATHSCL HEART DISEASE OF [place] CORONARY 02/05/2018 RACHID OCAMPO FACC, ALI FACP CCDS Ot I42.0 DILATED CARDIOMYOPATHY 02/05/2018 RACHID OCAMPO FACC, ALI FACP CCDS Ot Z72.0 TOBACCO USE 02/05/2018 RACHID OCAMPO FACC, ALI FACP CCDS Ot I25.10 ATHSCL HEART DISEASE OF [place] CORONARY 02/05/2018 RACHID OCAMPO FACC, ALI FACP CCDS Ot I42.0 DILATED CARDIOMYOPATHY 02/05/2018 RACHID OCAMPO FACC, ALI FACP CCDS Ot Z72.0 TOBACCO USE 02/05/2018 RACHID OCAMPO FACC, ALI FACP CCDS Ot I25.10 ATHSCL HEART DISEASE OF [place] CORONARY 02/05/2018 RACHID OCAMPO FACC, ALI FACP CCDS Ot I34.0 NONRHEUMATIC MITRAL (VALVE) INSUFFICIENC 02/05/2018 RACHID OCAMPO FACC, ALI FACP CCDS Ot I42.0 DILATED CARDIOMYOPATHY 02/05/2018 RACHID OCAMPO FACC, ALI FACP CCDS Ot I50.22 CHRONIC SYSTOLIC (CONGESTIVE) HEART FAIL 02/05/2018 RACHID HERNANDEZC, ALI FACP CCDS Ot I65.23 OCCLUSION AND STENOSIS OF BILATERAL [place] 02/05/2018 RACHID OCAMPO FACC, ALI FACP CCDS Ot Z72.0 TOBACCO USE 02/05/2018 VAN CRISTI L HEAT AND FROST INSULATOR Ot I25.10 ATHSCL HEART DISEASE OF [place] CORONARY 02/05/2018 CRISTI ARAUJO HEAT AND FROST INSULATOR Ot I42.0 DILATED CARDIOMYOPATHY 02/05/2018 CRISTI ARAUJO HEAT AND FROST INSULATOR Ot I50.22 CHRONIC SYSTOLIC (CONGESTIVE) HEART FAIL 02/05/2018 TIARAFREDDY CRISTI L HEAT AND FROST INSULATOR Ot I77.89 OTHER SPECIFIED DISORDERS OF ARTERIES AN 02/05/2018 CRISTI ARAUJO HEAT AND FROST INSULATOR Ot Z72.0 TOBACCO USE 02/05/2018 RACHID OCAMPO FACC, ALI FACP CCDS Ot I25.10 ATHSCL HEART DISEASE OF [place] CORONARY 02/05/2018 RACHID HERNANDEZC, ALI FACP CCDS Ot I34.0 NONRHEUMATIC MITRAL (VALVE) INSUFFICIENC 02/05/2018 RACHID OCAMPO FACC, ALI FACP CCDS Ot I42.0 DILATED CARDIOMYOPATHY 02/05/2018 RACHID OCAMPO FACC, ALI FACP CCDS Ot I50.22 CHRONIC SYSTOLIC (CONGESTIVE) HEART FAIL 02/05/2018 RACHID OCAMPO FACC, ALI FACP CCDS Ot I65.23 OCCLUSION AND STENOSIS OF BILATERAL [place] 02/05/2018 RACHID MD FACC, ALI FACP CCDS Ot Z72.0 TOBACCO USE 02/05/2018 RACHID OCAMPO FACC, ALI FACP CCDS Ot I25.10 ATHSCL HEART DISEASE OF [place] CORONARY 02/05/2018 RACHID HERNANDEZC, ALI FACP CCDS Ot I42.0 DILATED CARDIOMYOPATHY 02/05/2018 RACHID OCAMPO FACC, ALI FACP CCDS Ot Z72.0 TOBACCO USE 02/05/2018 RACHID OCAMPO FACC, ALI FACP CCDS Ot I25.10 ATHSCL HEART DISEASE OF [place] CORONARY 02/05/2018 RACHID OCAMPO FACDrake, ALI FACP CCDS Ot I42.0 DILATED CARDIOMYOPATHY 02/05/2018 RACHID OCAMPO FACDrake, ALI FACP CCDS Ot Z72.0 TOBACCO USE 02/25/2018 SHAWNA DOMINGO MD Ot I25.10 ATHSCL HEART DISEASE OF [place] CORONARY 02/25/2018 SHAWNA DOMINGO MD Ot 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 02/28/2018 CRISTI ARAUJO L HEAT AND FROST INSULATOR Ot I25.5 ISCHEMIC CARDIOMYOPATHY 02/28/2018 CRISTI ARAUJO L HEAT AND FROST INSULATOR Ot I50.21 ACUTE SYSTOLIC (CONGESTIVE) HEART FAILUR 03/05/2018 SHAWNA DOMINGO MD Ot G45.8 OTH TRANSIENT CEREBRAL ISCHEMIC ATTACKS 03/05/2018 SHAWNA DOMINGO MD Ot I25.10 ATHSCL HEART DISEASE OF [place] CORONARY 03/10/2018 CRISTI ARAUJO L HEAT AND FROST INSULATOR Ot I25.5 ISCHEMIC CARDIOMYOPATHY 03/10/2018 ZAINAB ARAUJOHER L HEAT AND FROST INSULATOR Ot I50.21 ACUTE SYSTOLIC (CONGESTIVE) HEART FAILUR 03/11/2018 RACHID OCAMPO FACC, ALI FACP CCDS Ot I25.10 ATHSCL HEART DISEASE OF [place] CORONARY 03/11/2018 RACHID OCAMPO FACC, ALI FACP CCDS Ot I42.0 DILATED CARDIOMYOPATHY 03/11/2018 RACHID OCAMPO FACC, ALI FACP CCDS Ot I65.23 OCCLUSION AND STENOSIS OF [place]ILATERAL [place] 03/11/2018 RACHID OCAMPO FACC, ALI FACP CCDS Ot Z72.0 TOBACCO USE 03/24/2018 CRISTI ARAUJO L HEAT AND FROST INSULATOR Ot E87.6 HYPOKALEMIA 03/24/2018 ZAINAB ARAUJOHER L HEAT AND FROST INSULATOR Ot I25.10 ATHSCL HEART DISEASE OF [place] CORONARY 03/24/2018 CRISTI ARAUJO Ot I25.5 ISCHEMIC CARDIOMYOPATHY 03/24/2018 CRISTI ARUAJO Ot I50.22 CHRONIC SYSTOLIC (CONGESTIVE) HEART FAIL 06/18/2018 SHAWNA DOMINGO MD, Ot D50.9 IRON DEFICIENCY ANEMIA, UNSPECIFIED 06/18/2018 SHAWNA DOMINGO MD, Ot R63.4 ABNORMAL WEIGHT LOSS 07/02/2018 SHAWNA DOMINGO MD, Ot D50.9 IRON DEFICIENCY ANEMIA, UNSPECIFIED 07/02/2018 SHAWNA DOMINGO MD, Ot R63.4 ABNORMAL WEIGHT LOSS Procedures There is no data. Results Test [...] resistant Staphylococcus aureus (MRSA) screening culture NEG NR Automated blood complete blood count (hemogram) panel [...] - 09/25/17 05:28 Digoxin 0.36 ng/mL 0.80-2.00 Automated blood complete blood count (hemogram) panel - 01/28/18 07:15 Blood leukocytes automated count (number/volume) 7.1 10*3/uL 4.3-11.0 Blood erythrocytes automated count (number/volume) 4.70 10*6/uL 4.35-5.85 Venous blood hemoglobin measurement (mass/volume) 14.5 g/dL 13.3-17.7 Blood hematocrit (volume fraction) 42 % 40-54 Automated erythrocyte mean corpuscular volume 89 [foz_us] 80-99 Automated erythrocyte mean corpuscular hemoglobin (mass per erythrocyte) 31 pg 25-34 Automated erythrocyte mean corpuscular hemoglobin concentration measurement ( mass/volume) 35 g/dL 32-36 Automated erythrocyte distribution width ratio 13.9 % 10.0-14.5 Automated blood platelet count (count/volume) 202 10*3/uL 130-400 Automated blood platelet mean volume measurement 9.6 [foz_us] 7.4-10.4 PT panel in platelet poor plasma by coagulation assay - 01/28/18 07:15 Prothrombin time (PT) in platelet poor plasma by coagulation assay 13.2 s 12.2-14.7 INR in platelet poor plasma or blood by coagulation assay 1.0 0.8-1.4 Activated partial thromboplastin time (aPTT) in platelet poor plasma bycoagulation assay - 01/28/18 07:15 Activated partial thromboplastin time (aPTT) in platelet poor plasma bycoagulation assay 28 s 24-35 Comprehensive metabolic panel - 01/28/18 07:15 Serum or plasma sodium measurement (moles/volume) 141 mmol/L 135-145 Serum or plasma potassium measurement (moles/volume) 3.8 mmol/L 3.6-5.0 Serum or plasma chloride measurement (moles/volume) 107 mmol/L 98-107 Carbon dioxide 24 mmol/L 21-32 Serum or plasma anion gap determination (moles/volume) 10 mmol/L 5-14 Serum or plasma urea nitrogen measurement (mass/volume) 7 mg/dL 7-18 Serum or plasma creatinine measurement (mass/volume) 0.84 mg/dL 0.60-1.30 Serum or plasma urea nitrogen/creatinine mass ratio 8 NRG Serum or plasma creatinine measurement with calculation of estimated glomerular filtration rate > NRG Serum or plasma glucose measurement (mass/volume) 100 mg/dL 70-105 Serum or plasma calcium measurement (mass/volume) 9.1 mg/dL 8.5-10.1 Serum or plasma total bilirubin measurement (mass/volume) 0.6 mg/dL 0.1-1.0 Serum or plasma alkaline phosphatase measurement (enzymatic activity/volume) 75 U/L 40-136 Serum or plasma aspartate aminotransferase measurement (enzymatic activity/ volume) 26 U/L 5-34 Serum or plasma alanine aminotransferase measurement (enzymatic activity/volume ) 23 U/L 0-55 Serum or plasma protein measurement (mass/volume) 6.5 g/dL 6.4-8.2 Serum or plasma albumin measurement (mass/volume) 4.1 g/dL 3.2-4.5 CALCIUM CORRECTED 9.0 mg/dL 8.5-10.1 Lipid 1996 panel - 01/28/18 07:15 Serum or plasma triglyceride measurement (mass/volume) 71 mg/dL <150 Serum or plasma cholesterol measurement (mass/volume) 103 mg/dL < 200 Serum or plasma cholesterol in HDL measurement (mass/volume) 41 mg/ dL 40-60 Cholesterol in LDL [mass/volume] in serum or plasma by direct assay 46 mg/dL 1-129 Serum or plasma cholesterol in VLDL measurement (mass/volume) 14 mg/ dL 5-40 Methicillin resistant Staphylococcus aureus (MRSA) screening culture - 07:15 Methicillin resistant Staphylococcus aureus (MRSA) screening culture NEG NRG Automated blood complete blood count (hemogram) panel - 01/29/18 05:30 Blood leukocytes automated count (number/volume) 7.0 10*3/uL 4.3-11.0 Blood erythrocytes automated count (number/volume) 4.33 10*6/uL 4.35-5.85 Venous blood hemoglobin measurement (mass/volume) 13.7 g/dL 13.3-17.7 Blood hematocrit (volume fraction) 39 % 40-54 Automated erythrocyte mean corpuscular volume 90 [foz_us] 80-99 Automated erythrocyte mean corpuscular hemoglobin (mass per erythrocyte) 32 pg 25-34 Automated erythrocyte mean corpuscular hemoglobin concentration measurement ( mass/volume) 35 g/dL 32-36 Automated erythrocyte distribution width ratio 13.6 % 10.0-14.5 Automated blood platelet count (count/volume) 161 10*3/uL 130-400 Automated blood platelet mean volume measurement 9.9 [foz_us] 7.4-10.4 Comprehensive metabolic panel - 01/29/18 05:30 Serum or plasma sodium measurement (moles/volume) 139 mmol/L 135-145 Serum or plasma potassium measurement (moles/volume) 3.6 mmol/L 3.6-5.0 Serum or plasma chloride measurement (moles/volume) 107 mmol/L 98-107 Carbon dioxide 23 mmol/L 21-32 Serum or plasma anion gap determination (moles/volume) 9 mmol/L 5-14 Serum or plasma urea nitrogen measurement (mass/volume) 8 mg/dL 7-18 Serum or plasma creatinine measurement (mass/volume) 0.78 mg/dL 0.60-1.30 Serum or plasma urea nitrogen/creatinine mass ratio 10 NRG Serum or plasma creatinine measurement with calculation of estimated glomerular filtration rate > NRG Serum or plasma glucose measurement (mass/volume) 86 mg/dL 70-105 Serum or plasma calcium measurement (mass/volume) 8.4 mg/dL 8.5-10.1 Serum or plasma total bilirubin measurement (mass/volume) 0.7 mg/dL 0.1-1.0 Serum or plasma alkaline phosphatase measurement (enzymatic activity/volume) 72 U/L 40-136 Serum or plasma aspartate aminotransferase measurement (enzymatic activity/ volume) 21 U/L 5-34 Serum or plasma alanine aminotransferase measurement (enzymatic activity/volume ) 18 U/L 0-55 Serum or plasma protein measurement (mass/volume) 5.5 g/dL 6.4-8.2 Serum or plasma albumin measurement (mass/volume) 3.5 g/dL 3.2-4.5 CALCIUM CORRECTED 8.8 mg/dL 8.5-10.1 Whole blood basic metabolic panel - 03/05/18 13:14 Serum or plasma sodium measurement (moles/volume) 140 mmol/L 135-145 Serum or plasma potassium measurement (moles/volume) 3.6 mmol/L 3.6-5.0 Serum or plasma chloride measurement (moles/volume) 105 mmol/L 98-107 Carbon dioxide 26 mmol/L 21-32 Serum or plasma anion gap determination (moles/volume) 9 mmol/L 5-14 Serum or plasma urea nitrogen measurement (mass/volume) 11 mg/dL 7-18 Serum or plasma creatinine measurement (mass/volume) 0.93 mg/dL 0.60-1.30 Serum or plasma urea nitrogen/creatinine mass ratio 12 NRG Serum or plasma creatinine measurement with calculation of estimated glomerular filtration rate > NRG Serum or plasma glucose measurement (mass/volume) 81 mg/dL 70-105 Serum or plasma calcium measurement (mass/volume) 9.3 mg/dL 8.5-10.1 Magnesium - 03/05/18 13:14 Magnesium 2.0 mg/dL 1.8-2.4 Whole blood basic metabolic panel - 03/20/18 09:01 Serum or plasma sodium measurement (moles/volume) 138 mmol/L 135-145 Serum or plasma potassium measurement (moles/volume) 4.4 mmol/L 3.6-5.0 Serum or plasma chloride measurement (moles/volume) 106 mmol/L 98-107 Carbon dioxide 22 mmol/L 21-32 Serum or plasma anion gap determination (moles/volume) 10 mmol/L 5-14 Serum or plasma urea nitrogen measurement (mass/volume) 14 mg/dL 7-18 Serum or plasma creatinine measurement (mass/volume) 1.05 mg/dL 0.60-1.30 Serum or plasma urea nitrogen/creatinine mass ratio 13 NRG Serum or plasma creatinine measurement with calculation of estimated glomerular filtration rate > NRG Serum or plasma glucose measurement (mass/volume) 117 mg/dL 70-105 Serum or plasma calcium measurement (mass/volume) 9.1 mg/dL 8.5-10.1 Blood CBC with ordered manual differential panel - 06/18/18 13:44 Blood leukocytes automated count (number/volume) 6.8 10*3/uL 4.3-11.0 Blood erythrocytes automated count (number/volume) 4.51 10*6/uL 4.35-5.85 Venous blood hemoglobin measurement (mass/volume) 14.0 g/dL 13.3-17.7 Blood hematocrit (volume fraction) 41 % 40-54 Automated erythrocyte mean corpuscular volume 90 [foz_us] 80-99 Automated erythrocyte mean corpuscular hemoglobin (mass per erythrocyte) 31 pg 25-34 Automated erythrocyte mean corpuscular hemoglobin concentration measurement ( mass/volume) 35 g/dL 32-36 Automated erythrocyte distribution width ratio 14.6 % 10.0-14.5 Automated blood platelet count (count/volume) 247 10*3/uL 130-400 Automated blood platelet mean volume measurement 8.9 [foz_us] 7.4-10.4 Automated blood neutrophils/100 leukocytes 60 % 42-75 Automated blood lymphocytes/100 leukocytes 21 % 12-44 Blood monocytes/100 leukocytes 9 % NRG Automated blood eosinophils/100 leukocytes 6 % 0-10 Automated blood basophils/100 leukocytes 1 % 0-10 Blood neutrophils automated count (number/volume) 4.1 10*3 1.8-7.8 Blood lymphocytes automated count (number/volume) 1.4 10*3 1.0-4.0 Blood monocytes automated count (number/volume) 0.8 10*3 0.0-1.0 Automated eosinophil count 0.4 10*3/uL 0.0-0.3 Automated blood basophil count (count/volume) 0.0 10*3/uL 0.0-0.1 Manual blood segmented neutrophils/100 leukocytes 62 % NRG Blood band neutrophils/100 leukocytes 0 % NRG Manual blood lymphocytes/100 leukocytes 23 % NRG Manual eosinophils/100 leukocytes in nose 5 % NRG Manual blood basophils/100 leukocytes 1 % NRG Blood ovalocytes detection by light microscopy [facility] Comprehensive metabolic panel - 06/18/18 13:44 Serum or plasma sodium measurement (moles/volume) 138 mmol/L 135-145 Serum or plasma potassium measurement (moles/volume) 4.4 mmol/L 3.6-5.0 Serum or plasma chloride measurement (moles/volume) 103 mmol/L 98-107 Carbon dioxide 24 mmol/L 21-32 Serum or plasma anion gap determination (moles/volume) 11 mmol/L 5-14 Serum or plasma urea nitrogen measurement (mass/volume) 17 mg/dL 7-18 Serum or plasma creatinine measurement (mass/volume) 0.95 mg/dL 0.60-1.30 Serum or plasma urea nitrogen/creatinine mass ratio 18 NRG Serum or plasma creatinine measurement with calculation of estimated glomerular filtration rate > [facility] Serum or plasma glucose measurement (mass/volume) 84 mg/dL 70-105 Serum or plasma calcium measurement (mass/volume) 9.1 mg/dL 8.5-10.1 Serum or plasma total bilirubin measurement (mass/volume) 0.4 mg/dL 0.1-1.0 Serum or plasma alkaline phosphatase measurement (enzymatic activity/volume) 92 U/L 40-136 Serum or plasma aspartate aminotransferase measurement (enzymatic activity/ volume) 22 U/L 5-34 Serum or plasma alanine aminotransferase measurement (enzymatic activity/volume ) 24 U/L 0-55 Serum or plasma protein measurement (mass/volume) 6.9 g/dL 6.4-8.2 Serum or plasma albumin measurement (mass/volume) 4.4 g/dL 3.2-4.5 CALCIUM CORRECTED 8.8 mg/dL 8.5-10.1 Lactate dehydrogenase 1 [enzymatic activity/volume] in serum or plasma - 13:44 Lactate dehydrogenase 1 [enzymatic activity/volume] in serum or plasma 210 U/L 125-220 THYROID STIMULATING HORMONE - 06/18/18 13:44 THYROID STIMULATING HORMONE 1.17 u[iU]/mL 0.35-4.94 Thyroxine (T4) measurement - 06/18/18 13:44 T4 (thyroxine) 8.2 % 5.5-12.0 Encounters ACCT No. Visit Date/Time Discharge Status Pt. Type Provider Facility Loc./Unit Complaint [id number] 04/17/2017 14:16:02 ACT Unknown [id number] 06/18/2018 13:35:00 06/18/2018 23:59:59 CLS Outpatient CHAYO OCAMPO, SHAWNA Juan [facility] RAD IRON DEFICIENCY, WEIGHT LOSS, ANEMIA, FATIGUE [id number] 03/20/2018 08:52:00 03/20/2018 23:59:59 CLS Outpatient CRISTI ARAUJO L HEAT AND FROST INSULATOR [facility] LAB HYPOKALEMIA [id number] 03/05/2018 13:03:00 03/05/2018 23:59:59 CLS Outpatient VAN CRISTI L HEAT AND FROST INSULATOR [facility] LAB ISCHEMIC CARDIOMYOPATHY [id number] 02/26/2018 10:43:00 02/26/2018 23:59:59 CLS Outpatient VAN CRISTI L HEAT AND FROST INSULATOR [facility] LAB I25.5 [id number] 01/28/2018 06:59:00 01/29/2018 10:30:00 DIS Outpatient ANSHU RASHID MD, FACC, FACP CCDS [facility] CATH CAD [id number] 01/16/2018 09:22:00 01/16/2018 23:59:59 CLS Outpatient VAN CRISTI L HEAT AND FROST INSULATOR [facility] CARD CAD,CAROTID ARTERIAL DISEASE [id number] 09/24/2017 12:05:00 09/26/2017 12:20:00 DIS Outpatient VAN CRISTI L HEAT AND FROST INSULATOR [facility] CATH CAD,CAROTID ARTERAIL DISEASE [id number] 09/17/2017 08:27:00 09/17/2017 23:59:59 CLS Outpatient ANSHU RASHID MD, FACC, FACP CCDS [facility] CARD I25.10 CAD [id number] 08/02/2017 10:04:00 08/02/2017 23:59:59 CLS Outpatient ANSHU RASHID MD, FACC, FACP CCDS [facility] LAB I25.10 I65.23 I42.0 Z72.0 [id number] 08/01/2017 06:50:00 08/01/2017 23:59:59 CLS Outpatient ANSHU RASHID MD, FACC, FACP CCDS [facility] CARD CAD [id number] 06/28/2017 08:12:00 06/28/2017 23:59:59 CLS Outpatient ANSHU RASHID MD, FACC, FACP CCDS [facility] LAB I42.0 [id number] 06/19/2017 11:01:00 06/19/2017 23:59:59 CLS Outpatient SHAWNA DOMINGO MD [facility] CARD CORONARY ARTERY DISEASE [id number] 06/03/2017 13:29:00 06/03/2017 23:59:59 CLS Outpatient SHAWNA DOMINGO MD [facility] RAD G45.8 CORONARY ARTERY DISEASE
--- NOTE | 2018-09-09 04:51 | ED GU-Male ---
General Chief Complaint: - Urinary Stated Complaint: ABD PAIN Source: patient History of Present Illness Date Seen by Provider: September 09, 2018 Time Seen by Provider: 04:29 Initial Comments PT ARRIVES VIA POV FROM HOME C/O DIFFICULTY URINATING SINCE NOON YESTERDAY C/O MUCH LOWER ABDOMINAL DISCOMFORT, URGENCY, FREQUENCY, SMALL AMOUNTS, SENSATION OF INCOMPLETE EMPTYING NO PAIN OR BURNING ON URINATION NO BACK PAIN NO NAUSEA/VOMITING NO FEVER HAS NOT HAD A BM SINCE YESTERDAY, BM WAS NOT CONSTIPATION--TOOK MAG CITRATE WITHOUT RELIEF NO HISTORY OF SIMILAR PCP: DR. Edilia DOMINGO CLERK MANAGER: DR. RASHID Allergies and Home Medications Allergies Coded Allergies: No Known Drug Allergies (Unverified , 09/24/17) Home Medications Aspirin 81 Mg Tab.chew, 81 MG PO DAILY, (Reported) Atorvastatin Calcium 40 Mg Tablet, 40 MG PO HS, (Reported) Carvedilol 12.5 Mg Tablet, 12.5 MG PO BID Prescribed by: CRISTI ARAUJO on 01/29/18 1010 Cefuroxime Axetil 500 Mg Tablet, 500 MG PO BID Prescribed by: CRISTI ARAUJO on 01/29/18 0857 Clopidogrel Bisulfate 75 Mg Tablet, 75 MG PO DAILY, (Reported) Digoxin 125 Mcg Tablet, 125 MCG PO DAILY, (Reported) Enalapril Maleate 10 Mg Tablet, 10 MG PO BID, (Reported) Pantoprazole Sodium 40 Mg Tablet.dr, 40 MG PO DAILY, (Reported) Phenazopyridine HCl 200 Mg Tablet, 1 TAB PO TID Prescribed by: SMITA YANCEY on 09/09/18524 Sulfamethoxazole/Trimethoprim 1 Each Tablet, 1 EACH PO BID Prescribed by: SMITA YANCEY on 09/09/18524 Tamsulosin HCl 0.4 Mg Cap, 0.4 MG PO DAILY Prescribed by: SMITA YANCEY on 09/09/18524 Patient Home Medication List Home Medication List Reviewed: Yes Review of Systems Review of Systems Constitutional: no symptoms reported Respiratory: no symptoms reported Cardiovascular: no symptoms reported Gastrointestinal: see HPI Genitourinary: see HPI Musculoskeletal: no symptoms reported Skin: no symptoms reported Psychiatric/Neurological: No Symptoms Reported Endocrine: No Symptoms Reported Past Khnlhec-Qlxhqq-Mfsjri Hx Patient Social History Alcohol Use: Occasionally Uses Alcohol Beverage of Choice: Beer Recreational Drug Use: No Smoking Status: Current Everyday Smoker Type Used: Cigarettes 2nd Hand Smoke Exposure: Yes Recent Foreign Travel: No Contact w/Someone Who Travel: No Recent Hopitalizations: No Immunizations Up To Date Tetanus Booster (TDap): Unknown Date of Influenza Vaccine: Jan 28, 2018 Seasonal Allergies Seasonal Allergies: No Past Medical History Surgeries: Yes (CARDIAC CATHS--S/P ANGIOPLASTY AND STENTS X 2; PACEMAKER/ DEFIBRILLATOR) Cardiac, Coronary Stent, Defibrillator, Pacemaker Respiratory: No Cardiac: Yes (CAROTID DISEASE; CARDIAC CATHS--STENTS X 2, ANGIOPLASTY; PACEMAKER/DEFIBRILLATOR) Coronary Artery Disease, Heart Attack, High Cholesterol, Hypertension, Peripheral Vascular Neurological: No Genitourinary: No Gastrointestinal: Yes Gastroesophageal Reflux Musculoskeletal: Yes Arthritis Endocrine: No HEENT: No Cancer: No Psychosocial: No Integumentary: No Blood Disorders: No Adverse Reaction/Blood Tranf: No Family Medical History Patient reports no known family medical history. Physical Exam Vital Signs Vital Signs - First Documented 09/09/18 04:36 Temp 97.7 Pulse 71 Resp 18 B/P (MAP) 116/76 (89) Pulse Ox 97 O2 Delivery Room Air Capillary Refill : Height, Weight, BMI Height: 6'0.00" Weight: 178lbs. 0.0oz. 80.382038hn; 24.1 BMI Method: General Appearance: WD/WN, no apparent distress (BUT HOLDING LOWER ABDOMEN/ BLADDER AREA) Neck: normal inspection Cardiovascular: regular rate, rhythm, no edema, no JVD, no murmur Gastrointestinal: normal bowel sounds, soft, no pulsatile mass, guarding, tenderness (DIFFUSE LOWER ABDOMEN/SUPRAPUBIC TENDERNESS. 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, no motor/sensory deficits, alert, normal mood/affect, oriented x 3 Skin: normal color, warm/dry Progress/Results/Core Measures Suspected Sepsis SIRS Temperature: Pulse: Respiratory Rate: Laboratory Tests 09/09/18 04:40: White Blood Count 11.4H Blood Pressure / Mean: Laboratory Tests 09/09/18 04:40: Creatinine 0.85, Platelet Count 218, Total Bilirubin 0.6 Results/Orders Lab Results Laboratory Tests Test 09/09/18 04:40 09/09/18 04:50 Range/Units White Blood Count 11.4 H 4.3-11.0 10^3/uL Red Blood Count 4.47 4.35-5.85 10^6/uL Hemoglobin 13.5 13.3-17.7 G/DL Hematocrit 40 40-54 % Mean Corpuscular Volume 89 80-99 FL Mean Corpuscular Hemoglobin 30 25-34 PG Mean Corpuscular Hemoglobin Concent 34 32-36 G/DL Red Cell Distribution Width 13.5 10.0-14.5 % Platelet Count 218 130-400 10^3/uL Mean Platelet Volume 9.1 7.4-10.4 FL Neutrophils (%) (Auto) 71 42-75 % Lymphocytes (%) (Auto) 13 12-44 % Monocytes (%) (Auto) 12 0-12 % Eosinophils (%) (Auto) 3 0-10 % Basophils (%) (Auto) 0 0-10 % Neutrophils # (Auto) 8.1 H 1.8-7.8 X 10^3 Lymphocytes # (Auto) 1.5 1.0-4.0 X 10^3 Monocytes # (Auto) 1.4 H 0.0-1.0 X 10^3 Eosinophils # (Auto) 0.4 H 0.0-0.3 10^3/uL Basophils # (Auto) 0.0 0.0-0.1 10^3/uL Sodium Level 137 135-145 MMOL/L Potassium Level 3.9 3.6-5.0 MMOL/L Chloride Level 105 98-107 MMOL/L Carbon Dioxide Level 23 21-32 MMOL/L Anion Gap 9 5-14 MMOL/L Blood Urea Nitrogen 12 7-18 MG/DL Creatinine 0.85 0.60-1.30 MG/DL Estimat Glomerular Filtration Rate > 60 BUN/Creatinine Ratio 14 Glucose Level 106 H 70-105 MG/DL Calcium Level 9.2 8.5-10.1 MG/DL Corrected Calcium 9.3 8.5-10.1 MG/DL Total Bilirubin 0.6 0.1-1.0 MG/DL Aspartate Amino Transf (AST/SGOT) 16 5-34 U/L Alanine Aminotransferase (ALT/SGPT) 20 0-55 U/L Alkaline Phosphatase 76 40-136 U/L Total Protein 6.4 6.4-8.2 GM/DL Albumin 3.9 3.2-4.5 GM/DL Amylase Level 42 25-125 U/L Lipase 44 8-78 U/L Urine Color YELLOW Urine Clarity SLIGHTLY CLOUDY Urine pH 8 5-9 Urine Specific [place] 1.010 L 1.016-1.022 Urine Protein NEGATIVE NEGATIVE Urine Glucose (UA) NEGATIVE NEGATIVE Urine Ketones NEGATIVE NEGATIVE Urine Nitrite NEGATIVE NEGATIVE Urine Bilirubin NEGATIVE NEGATIVE Urine Urobilinogen NORMAL NORMAL MG/DL Urine Leukocyte Esterase 1+ H NEGATIVE Urine RBC (Auto) NEGATIVE NEGATIVE Urine RBC NONE /HPF Urine WBC 2-5 /HPF Urine Squamous Epithelial Cells RARE /HPF Urine Crystals NONE /LPF Urine Bacteria LARGE H /HPF Urine Casts NONE /LPF Urine Mucus NEGATIVE /LPF Urine Culture Indicated YES My Orders Orders - SMITA YANCEY DO Ed Iv/Invasive Line Start (09/09/18 04:29) Monitor-Rhythm Ecg Trace Only (09/09/18 04:29) Amylase (09/09/18 04:29) Cbc With Automated Diff (09/09/18 04:29) Comprehensive Metabolic Panel (09/09/18 04:29) Lipase (09/09/18 04:29) Ua Culture If Indicated (09/09/18 04:29) Ed Iv/Invasive Line Start (09/09/18 04:29) Bladder Scan (09/09/18 04:38) Catheter(Urinary) Insert & Ass 03,15 (09/09/18 04:41) Abdomen, Flat & Upright/Decub (09/09/18 04:41) Urine Culture (09/09/18 04:50) Phenazopyridine Tablet (Pyridium Tablet) (09/09/18 05:45) Sulfamethoxazole/Trimet Ds Tab (Bactrim (09/09/18 05:45) Vital Signs/I&O 09/09/18 09/09/18 04:36 05:56 Temp 97.7 97.7 Pulse 71 71 Resp 18 18 B/P (MAP) 116/76 (89) 116/76 (89) Pulse Ox 97 97 O2 Delivery Room Air Room Air Capillary Refill : Progress Note : Progress Note BLADDER SCAN--> 200 ML RESIDUAL URINE STEWART CATHETER PLACED. IMMEDIATE RETURN OF > 200 ML URINE Departure Impression Primary Impression: Acute urinary retention Additional Impressions: UTI (urinary tract infection) Constipation Disposition: 01 HOME, SELF-CARE Condition: Improved Departure-Patient Inst. Referrals: SHAWNA DOMINGO MD (PCP/Family) Primary Care Physician Patient Instructions: Urinary Tract Infection, Adult (DC), Urinary Retention ( DC), Constipation, Adult (DC) Add. Discharge Instructions: INCREASE YOUR CLEAR LIQUIDS--WATER, BROTH, JELLO, GATORADE TYLENOL AND MOTRIN NEEDED FOR PAIN DULCOLAX SUPPOSITORIES AND / OR FLEET'S ENEMAS FOR BM TAKE MIRALAX EVERY 1-2 HOURS UNTIL YOU HAVE CLEARED YOUR BOWELS, THEN USE DAILY FOLLOW UP WITH DR. DOMINGO THIS WEEK FOR FURTHER CARE All discharge instructions reviewed with patient and/or family. Voiced understanding. Scripts Phenazopyridine HCl (Pyridium) 200 Mg Tablet 1 TAB PO TID for BLADDER DISCOMFORT, #15 TAB Prov: SMITA YANCEY DO 09/09/18 Tamsulosin HCl (Flomax) 0.4 Mg Cap 0.4 MG PO DAILY, #10 CAP Prov: SMITA YANCEY DO 09/09/18 Sulfamethoxazole/Trimethoprim (Bactrim Ds Tablet) 1 Each Tablet 1 EACH PO BID, #20 TAB Prov: SMITA YANCEY DO 09/09/18 SMITA YANCEY DO September 09, 2018 04:51
[2018-09-09 04:52] LABS: BASOPHILS % (AUTO) 0 % (0-10); EOSINOPHILS # (AUTO) 0.4 10^3/uL (0.0-0.3); EOSINOPHILS % (AUTO) 3 % (0-10); HEMATOCRIT 40 % (40-54); HEMOGLOBIN 13.5 G/DL (13.3-17.7); LYMPHOCYTES # (AUTO) 1.5 X 10^3 (1.0-4.0); LYMPHOCYTES % (AUTO) 13 % (12-44); MEAN CORPUSCULAR HEMOGLOBIN 30 PG (25-34); MEAN CORPUSCULAR HGB CONC 34 G/DL (32-36); MEAN CORPUSCULAR VOLUME 89 FL (80-99); MEAN PLATELET VOLUME 9.1 FL (7.4-10.4); MONOCYTES # (AUTO) 1.4 X 10^3 (0.0-1.0); MONOCYTES % (AUTO) 12 % (0-12); NEUTROPHILS # (AUTO) 8.1 X 10^3 (1.8-7.8); NEUTROPHILS % (AUTO) 71 % (42-75); PLATELET COUNT 218 10^3/uL (130-400); RED CELL DISTRIBUTION WIDTH 13.5 % (10.0-14.5); WHITE BLOOD COUNT 11.4 10^3/uL (4.3-11.0)
[2018-09-09 05:02] LABS: BILIRUBIN,URINE NEGATIVE (NEGATIVE); CLARITY,URINE SLIGHTLY CLOUDY; COLOR,URINE YELLOW; GLUCOSE, URINE (UA) NEGATIVE (NEGATIVE); KETONES,URINE NEGATIVE (NEGATIVE); LEUKOCYTE ESTERASE ,URINE 1+ (NEGATIVE); NITRITE,URINE NEGATIVE (NEGATIVE); PH,URINE 8 (5-9); PROTEIN,URINE NEGATIVE (NEGATIVE); UROBILINOGEN,URINE NORMAL (NORMAL)
[2018-09-09 05:11] LABS: BACTERIA,URINE LARGE /HPF; SQUAMOUS EPITHELIAL CELL,UR RARE /HPF
[2018-09-09 05:14] LABS: ALANINE AMINOTRANSFERASE 20 U/L (0-55); ALBUMIN 3.9 GM/DL (3.2-4.5); ALKALINE PHOSPHATASE 76 U/L (40-136); AMYLASE 42 U/L (25-125); BILIRUBIN,TOTAL 0.6 MG/DL (0.1-1.0); BUN/CREATININE RATIO 14; CALCIUM 9.2 MG/DL (8.5-10.1); CARBON DIOXIDE 23 MMOL/L (21-32); CHLORIDE 105 MMOL/L (98-107); CREATININE SERUM 0.85 MG/DL (0.60-1.30); GFR ESTIMATED > 60; GLUCOSE 106 MG/DL (70-105); LIPASE 44 U/L (8-78); POTASSIUM 3.9 MMOL/L (3.6-5.0); SODIUM 137 MMOL/L (135-145); TOTAL PROTEIN 6.4 GM/DL (6.4-8.2)
[2018-09-09] MEDS ORDERED: PHEN-640 PO (05:25)
[2018-09-09] MEDS ORDERED: SULF1TAB35 PO (05:25)
[2018-09-09] MEDS ORDERED: TAMS0.4C98 PO (05:25)
[2018-09-09] MEDS ORDERED: TRIM/SULFAMETH 160/800 (SEPTRA DS) TAB PO ONE (05:45)
[2018-09-09] MEDS ORDERED: PHENAZOPYRIDINE 100 MG (PYRIDIUM) TABLET PO ONE (05:45)
[2018-09-09 05:56] VITALS: BP 116/76
--- NOTE | 2018-09-09 07:24 | Diagnostic Imaging Report ---
EXAMINATION: Abdominal radiographs, upright and supine views. DATE: September 09, 2018. CLINICAL INDICATION: 58-year-old male, abdominal pain. COMPARISON: None. COMMENTS: There are gas-filled segments of small and large bowel. There are no abnormally distended gas-filled segments of bowel. There is no identified free intraperitoneal air, pneumatosis, or portal venous gas. There are vascular calcifications. There is no abnormal radiodensity overlying the kidneys or expected positions of the ureters. There are degenerative changes of the spine. There is a mild volume colonic stool. IMPRESSION: No identified acute abdominal radiographic abnormality. Dictated by: Dictated on workstation # [id number]
== END 2018-09-09 05:57 | disposition home or self-care (01) ==
LOC: EDUNIT# 04:24 → ER 04:26
DX: N39.0 Urinary tract infection, site not specified (principal); K59.00 Constipation, unspecified; R33.9 Retention of urine, unspecified; I25.10 Atherosclerotic heart disease of native coronary artery without angina pectoris; I10 Essential (primary) hypertension; E78.00 Pure hypercholesterolemia, unspecified; I25.2 Old myocardial infarction; I73.9 Peripheral vascular disease, unspecified; K21.9 Gastro-esophageal reflux disease without esophagitis; F17.210 Nicotine dependence, cigarettes, uncomplicated; Z79.82 Long term (current) use of aspirin; Z79.02 Long term (current) use of antithrombotics/antiplatelets; Z95.5 Presence of coronary angioplasty implant and graft; Z95.810 Presence of automatic (implantable) cardiac defibrillator
CPT/HCPCS: 36415; 51702; 74019; 80053; 81000; 82150; 83690; 85025; 87077; 87088

== ENCOUNTER → 2018-12-29 | Outpatient (CLI) | payer BC ==
[~2018-12-29] MED LIST changes: +PHEN-640 PO; +SULF1TAB35 PO; +TAMS0.4C98 PO
[2018-12-29 15:52] LABS: BASOPHILS % (AUTO) 1 % (0-10); EOSINOPHILS # (AUTO) 0.4 10^3/uL (0.0-0.3); EOSINOPHILS % (AUTO) 7 % (0-10); HEMATOCRIT 36 % (40-54); HEMOGLOBIN 11.8 G/DL (13.3-17.7); LYMPHOCYTES # (AUTO) 1.4 X 10^3 (1.0-4.0); LYMPHOCYTES % (AUTO) 22 % (12-44); MEAN CORPUSCULAR HEMOGLOBIN 29 PG (25-34); MEAN CORPUSCULAR HGB CONC 33 G/DL (32-36); MEAN CORPUSCULAR VOLUME 87 FL (80-99); MEAN PLATELET VOLUME 8.4 FL (7.4-10.4); MONOCYTES # (AUTO) 0.8 X 10^3 (0.0-1.0); MONOCYTES % (AUTO) 12 % (0-12); NEUTROPHILS # (AUTO) 3.9 X 10^3 (1.8-7.8); NEUTROPHILS % (AUTO) 59 % (42-75); PLATELET COUNT 250 10^3/uL (130-400); RED CELL DISTRIBUTION WIDTH 15.3 % (10.0-14.5); WHITE BLOOD COUNT 6.6 10^3/uL (4.3-11.0)
[2018-12-29 16:14] LABS: ALANINE AMINOTRANSFERASE 20 U/L (0-55); ALBUMIN 4.2 GM/DL (3.2-4.5); ALKALINE PHOSPHATASE 71 U/L (40-136); BILIRUBIN,TOTAL 0.3 MG/DL (0.1-1.0); BUN/CREATININE RATIO 9; CALCIUM 8.9 MG/DL (8.5-10.1); CARBON DIOXIDE 25 MMOL/L (21-32); CHLORIDE 108 MMOL/L (98-107); CREATININE SERUM 0.91 MG/DL (0.60-1.30); GFR ESTIMATED > 60; GLUCOSE 91 MG/DL (70-105); MAGNESIUM 1.8 MG/DL (1.6-2.4); POTASSIUM 3.5 MMOL/L (3.6-5.0); SODIUM 140 MMOL/L (135-145); TOTAL PROTEIN 6.5 GM/DL (6.4-8.2)
== END ==
LOC: LAB 15:33
PROVIDERS: ATTEND Internal Medicine Cardiovascular Disease
DX: I25.10 Atherosclerotic heart disease of native coronary artery without angina pectoris (principal); I65.29 Occlusion and stenosis of unspecified carotid artery; I50.22 Chronic systolic (congestive) heart failure; I42.0 Dilated cardiomyopathy; I25.5 Ischemic cardiomyopathy; Z95.810 Presence of automatic (implantable) cardiac defibrillator
CPT/HCPCS: 36415; 80053; 83735; 85025

== ENCOUNTER → 2019-01-07 | Outpatient (CLI) | payer BC ==
[2019-01-07 12:00] LABS: BUN/CREATININE RATIO 13; CALCIUM 8.8 MG/DL (8.5-10.1); CARBON DIOXIDE 26 MMOL/L (21-32); CHLORIDE 107 MMOL/L (98-107); CREATININE SERUM 1.02 MG/DL (0.60-1.30); GFR ESTIMATED > 60; GLUCOSE 106 MG/DL (70-105); MAGNESIUM 1.9 MG/DL (1.6-2.4); SODIUM 140 MMOL/L (135-145)
== END ==
LOC: LAB 11:10
PROVIDERS: ATTEND Nurse Practitioner Family
DX: I47.1 Supraventricular tachycardia (principal); I25.5 Ischemic cardiomyopathy; I42.0 Dilated cardiomyopathy; Z95.810 Presence of automatic (implantable) cardiac defibrillator
CPT/HCPCS: 36415; 80048; 80162; 83735

== ENCOUNTER → 2019-07-14 | Outpatient (CLI) | payer BC ==
[~2019-07-14] MED LIST changes: -DIGO125T PO; +DIGO125T3 PO; -TAMS0.4C98 PO; +TMSL.4C PO
[2019-07-14 14:25] LABS: BUN/CREATININE RATIO 14; CALCIUM 9.2 MG/DL (8.5-10.1); CARBON DIOXIDE 24 MMOL/L (21-32); CHLORIDE 104 MMOL/L (98-107); CREATININE SERUM 1.18 MG/DL (0.60-1.30); GFR ESTIMATED > 60; GLUCOSE 94 MG/DL (70-105); POTASSIUM 4.8 MMOL/L (3.6-5.0); SODIUM 137 MMOL/L (135-145)
== END ==
LOC: LAB 13:49
PROVIDERS: ATTEND Nurse Practitioner Family
DX: I25.10 Atherosclerotic heart disease of native coronary artery without angina pectoris (principal); I50.22 Chronic systolic (congestive) heart failure; I25.5 Ischemic cardiomyopathy; I47.1 Supraventricular tachycardia
CPT/HCPCS: 36415; 80048; 80162

== ENCOUNTER → 2019-09-09 | Outpatient (CLI) | payer BC ==
[2019-09-09 13:14] LABS: BASOPHILS % (AUTO) 0 % (0-10); EOSINOPHILS # (AUTO) 0.4 10^3/uL (0.0-0.3); EOSINOPHILS % (AUTO) 6 % (0-10); HEMATOCRIT 41 % (40-54); HEMOGLOBIN 13.5 G/DL (13.3-17.7); LYMPHOCYTES # (AUTO) 1.6 X 10^3 (1.0-4.0); LYMPHOCYTES % (AUTO) 23 % (12-44); MEAN CORPUSCULAR HEMOGLOBIN 27 PG (25-34); MEAN CORPUSCULAR HGB CONC 33 G/DL (32-36); MEAN CORPUSCULAR VOLUME 83 FL (80-99); MEAN PLATELET VOLUME 8.7 FL (7.4-10.4); MONOCYTES # (AUTO) 0.9 X 10^3 (0.0-1.0); MONOCYTES % (AUTO) 14 % (0-12); NEUTROPHILS % (AUTO) 58 % (42-75); PLATELET COUNT 250 10^3/uL (130-400); RED CELL DISTRIBUTION WIDTH 15.1 % (10.0-14.5); WHITE BLOOD COUNT 6.9 10^3/uL (4.3-11.0)
[2019-09-09 13:24] LABS: CHLORIDE 109 MMOL/L (98-107); POTASSIUM 4.1 MMOL/L (3.6-5.0); SODIUM 139 MMOL/L (135-145)
[2019-09-09 13:25] LABS: CALCIUM 8.9 MG/DL (8.5-10.1); GLUCOSE 99 MG/DL (70-105)
[2019-09-09 13:27] LABS: CARBON DIOXIDE 20 MMOL/L (21-32)
[2019-09-09 13:29] LABS: CREATININE SERUM 0.82 MG/DL (0.60-1.30); GFR ESTIMATED > 60
[2019-09-09 13:30] LABS: BUN/CREATININE RATIO 12
[2019-09-09 13:32] LABS: MAGNESIUM 2.1 MG/DL (1.6-2.4)
== END ==
LOC: LAB 12:51
PROVIDERS: ATTEND Internal Medicine Cardiovascular Disease
DX: I48.3 Typical atrial flutter (principal)
CPT/HCPCS: 36415; 80048; 80162; 83735; 84443; 85025

== ENCOUNTER → 2019-11-27 | Outpatient (CLI) | payer BC, MEDICAID ==
[2019-11-27 13:35] LABS: BASOPHILS % (AUTO) 0 % (0-10); EOSINOPHILS # (AUTO) 0.4 10^3/uL (0.0-0.3); EOSINOPHILS % (AUTO) 5 % (0-10); HEMATOCRIT 37 % (40-54); HEMOGLOBIN 12.3 G/DL (13.3-17.7); LYMPHOCYTES % (AUTO) 26 % (12-44); MEAN CORPUSCULAR HEMOGLOBIN 28 PG (25-34); MEAN CORPUSCULAR HGB CONC 33 G/DL (32-36); MEAN CORPUSCULAR VOLUME 84 FL (80-99); MEAN PLATELET VOLUME 9.1 FL (7.4-10.4); MONOCYTES # (AUTO) 0.9 X 10^3 (0.0-1.0); MONOCYTES % (AUTO) 12 % (0-12); NEUTROPHILS # (AUTO) 4.4 X 10^3 (1.8-7.8); NEUTROPHILS % (AUTO) 57 % (42-75); PLATELET COUNT 269 10^3/uL (130-400); WHITE BLOOD COUNT 7.7 10^3/uL (4.3-11.0)
[2019-11-27 13:45] LABS: ALBUMIN 4.2 GM/DL (3.2-4.5); CHLORIDE 107 MMOL/L (98-107); POTASSIUM 4.2 MMOL/L (3.6-5.0); SODIUM 136 MMOL/L (135-145)
[2019-11-27 13:46] LABS: CALCIUM 8.8 MG/DL (8.5-10.1)
[2019-11-27 13:48] LABS: GLUCOSE 104 MG/DL (70-105); TOTAL PROTEIN 6.5 GM/DL (6.4-8.2)
[2019-11-27 13:49] LABS: CARBON DIOXIDE 22 MMOL/L (21-32)
[2019-11-27 13:50] LABS: BILIRUBIN,TOTAL 0.5 MG/DL (0.1-1.0)
[2019-11-27 13:51] LABS: ALKALINE PHOSPHATASE 71 U/L (40-136); CREATININE SERUM 1.09 MG/DL (0.60-1.30); GFR ESTIMATED > 60
[2019-11-27 13:52] LABS: BUN/CREATININE RATIO 16
[2019-11-27 13:54] LABS: ALANINE AMINOTRANSFERASE 13 U/L (0-55); MAGNESIUM 2.2 MG/DL (1.6-2.4)
== END ==
LOC: LAB 13:22
PROVIDERS: ATTEND Internal Medicine Cardiovascular Disease
DX: I25.5 Ischemic cardiomyopathy (principal); I42.0 Dilated cardiomyopathy; I50.22 Chronic systolic (congestive) heart failure; I48.92 Unspecified atrial flutter
CPT/HCPCS: 36415; 80053; 80162; 83735; 85025

== ENCOUNTER → 2020-03-14 | Outpatient (CLI) | payer MEDICAID ==
[~2020-03-14] MED LIST changes: +ASPI-1238 PO; -ASPI-983 PO; -ENAL10TA PO; +ENAL10TA16 PO
[2020-03-14 08:09] LABS: BASOPHILS # (AUTO) 0.1 10^3/uL (0.0-0.1); BASOPHILS % (AUTO) 1 % (0-10); EOSINOPHILS # (AUTO) 0.4 10^3/uL (0.0-0.3); EOSINOPHILS % (AUTO) 6 % (0-10); HEMATOCRIT 40 % (40-54); HEMOGLOBIN 12.8 g/dL (13.3-17.7); LYMPHOCYTES # (AUTO) 1.7 10^3/uL (1.0-4.0); LYMPHOCYTES % (AUTO) 23 % (12-44); MEAN CORPUSCULAR HEMOGLOBIN 27 pg (25-34); MEAN CORPUSCULAR HGB CONC 32 g/dL (32-36); MEAN CORPUSCULAR VOLUME 86 fL (80-99); MEAN PLATELET VOLUME 9.3 fL (9.0-12.2); MONOCYTES # (AUTO) 0.9 10^3/uL (0.0-1.0); MONOCYTES % (AUTO) 12 % (0-12); NEUTROPHILS # (AUTO) 4.5 10^3/uL (1.8-7.8); NEUTROPHILS % (AUTO) 59 % (42-75); PLATELET COUNT 250 10^3/uL (130-400); WHITE BLOOD COUNT 7.6 10^3/uL (4.3-11.0)
[2020-03-14 08:36] LABS: ALANINE AMINOTRANSFERASE 18 U/L (0-55); ALBUMIN 4.1 GM/DL (3.2-4.5); ALKALINE PHOSPHATASE 76 U/L (40-136); BILIRUBIN,TOTAL 0.3 MG/DL (0.1-1.0); BUN/CREATININE RATIO 18; CARBON DIOXIDE 22 MMOL/L (21-32); CHLORIDE 106 MMOL/L (98-107); CHOLESTEROL 107 MG/DL (< 200); CREATININE SERUM 1.03 MG/DL (0.60-1.30); GFR ESTIMATED > 60; GLUCOSE 88 MG/DL (70-105); HDL CHOLESTEROL 39 MG/DL (40-60); SODIUM 138 MMOL/L (135-145); TOTAL PROTEIN 6.7 GM/DL (6.4-8.2); TRIGLYCERIDES 104 MG/DL (<150); VLDL CHOLESTEROL 21 MG/DL (5-40)
[2020-03-14 08:41] LABS: ERYTHROCYTE SEDIMENTATION RATE 17 MM/HR (0-30)
== END ==
LOC: CARD 08:30
PROVIDERS: ATTEND Internal Medicine Cardiovascular Disease
DX: I48.3 Typical atrial flutter (principal); I25.10 Atherosclerotic heart disease of native coronary artery without angina pectoris; I65.23 Occlusion and stenosis of bilateral carotid arteries; I50.22 Chronic systolic (congestive) heart failure; I25.5 Ischemic cardiomyopathy; Z95.810 Presence of automatic (implantable) cardiac defibrillator; Z72.0 Tobacco use
CPT/HCPCS: 36415; 80053; 80061; 83735; 84443; 85025; 85652; 93306

== ENCOUNTER → 2020-03-15 | Outpatient (CLI) | payer MEDICAID ==
[~2020-03-15] VITALS: Ht 182 cm; Wt 75.0 kg
[~2020-03-15] MED LIST changes: +CATHETER FLUSH 10 ML SYR IV PRN; +REGADENOSON 0.4 MG/5 ML SYR (LEXISCAN) IV ONE
[2020-03-15 08:46] VITALS: BP 108/62
--- NOTE | 2020-03-15 13:09 | STRESS TEST ---
DATE OF SERVICE: 03/15/2020 RESTING AND POST REGADENOSON TECHNETIUM-99M TETROFOSMIN SPECT CT IMAGING ORDERING PHYSICIAN: Dr. Camara. PRIMARY PHYSICIAN: Dr. Zarco. CLINICAL DIAGNOSES: Coronary artery disease, ischemic cardiomyopathy. Baseline images were carried out after injection of 10.4 mCi of technetium-99m Tetrofosmin. This was followed by 0.4 mg regadenoson and 30.8 mCi of technetium-99m Tetrofosmin for stress imaging. The electrocardiogram showed sinus rhythm at baseline. There is evidence of old anteroseptal myocardial infarction. There is nonspecific ST and T-wave abnormality. The electrocardiogram did not change significantly with regadenoson infusion. Review of images at rest and following stress indicates a fixed apical and septal perfusion defect. There is a septal and apical akinesis. Left ventricular ejection fraction is calculated to be 30%. There is no evidence of ischemia. CONCLUSIONS: 1. Apical and septal myocardial infarction without significant ischemia. 2. Apical and septal akinesis. 3. Left ventricular ejection fraction, on this study, is 30%. Job ID: [id number] DocumentID: [id number] Dictated Date: 03/15/2020 12:53:20 Print Color Operator Date: 03/15/2020 13:08:41 Dictated By: ANSHU CAMARA MD, MA, FACP, FACC,
== END ==
LOC: CARD 07:45
PROVIDERS: ATTEND Internal Medicine Cardiovascular Disease
DX: I25.10 Atherosclerotic heart disease of native coronary artery without angina pectoris (principal); I48.3 Typical atrial flutter; I65.23 Occlusion and stenosis of bilateral carotid arteries; I50.22 Chronic systolic (congestive) heart failure; I42.0 Dilated cardiomyopathy; I25.5 Ischemic cardiomyopathy; Z95.810 Presence of automatic (implantable) cardiac defibrillator; Z72.0 Tobacco use
CPT/HCPCS: 78452; 93017

== ENCOUNTER → 2020-09-05 | Outpatient (CLI) | payer OTHER, MEDICAID ==
[~2020-09-05] MED LIST changes: -CATHETER FLUSH 10 ML SYR IV PRN; -REGADENOSON 0.4 MG/5 ML SYR (LEXISCAN) IV ONE
[2020-09-05 16:39] LABS: ALBUMIN 3.8 GM/DL (3.2-4.5); CHLORIDE 106 MMOL/L (98-107); POTASSIUM 3.7 MMOL/L (3.6-5.0); SODIUM 137 MMOL/L (135-145)
[2020-09-05 16:40] LABS: CALCIUM 8.6 MG/DL (8.5-10.1)
[2020-09-05 16:41] LABS: GLUCOSE 147 MG/DL (70-105)
[2020-09-05 16:42] LABS: TOTAL PROTEIN 6.1 GM/DL (6.4-8.2)
[2020-09-05 16:43] LABS: BILIRUBIN,TOTAL 0.3 MG/DL (0.1-1.0); CARBON DIOXIDE 23 MMOL/L (21-32)
[2020-09-05 16:45] LABS: ALKALINE PHOSPHATASE 78 U/L (40-136); CREATININE SERUM 1.01 MG/DL (0.60-1.30); GFR ESTIMATED > 60
[2020-09-05 16:46] LABS: BUN/CREATININE RATIO 16
[2020-09-05 16:48] LABS: ALANINE AMINOTRANSFERASE 19 U/L (0-55)
[2020-09-05 16:51] LABS: BASOPHILS % (AUTO) 1 % (0-10); EOSINOPHILS # (AUTO) 0.3 10^3/uL (0.0-0.3); EOSINOPHILS % (AUTO) 5 % (0-10); HEMATOCRIT 34 % (40-54); HEMOGLOBIN 10.6 g/dL (13.3-17.7); LYMPHOCYTES # (AUTO) 1.6 10^3/uL (1.0-4.0); LYMPHOCYTES % (AUTO) 24 % (12-44); MEAN CORPUSCULAR HEMOGLOBIN 27 pg (25-34); MEAN CORPUSCULAR HGB CONC 31 g/dL (32-36); MEAN CORPUSCULAR VOLUME 85 fL (80-99); MEAN PLATELET VOLUME 9.3 fL (9.0-12.2); MONOCYTES # (AUTO) 0.8 10^3/uL (0.0-1.0); MONOCYTES % (AUTO) 13 % (0-12); NEUTROPHILS # (AUTO) 3.8 10^3/uL (1.8-7.8); NEUTROPHILS % (AUTO) 58 % (42-75); WHITE BLOOD COUNT 6.6 10^3/uL (4.3-11.0)
[2020-09-05 17:16] LABS: ANISOCYTOSIS SLIGHT; BAND NEUTROPHILS 12 %; LYMPHOCYTES % (MANUAL) 6 %; MONOCYTES % (MANUAL) 2 %; NEUTROPHILS % (MANUAL) 80 %
[2020-09-05 17:17] LABS: HYPOCHROMASIA SLIGHT; PLATELET COUNT 248 10^3/uL (130-400); POIKILOCYTOSIS SLIGHT
== END ==
LOC: LAB 16:14
PROVIDERS: ATTEND Nurse Practitioner Family
DX: I42.0 Dilated cardiomyopathy (principal)
CPT/HCPCS: 36415; 80053; 83735; 83880; 85007; 85027

== ENCOUNTER → 2020-09-13 | Outpatient (CLI) | payer OTHER, MEDICAID | LOC: RAD 15:45 | PROVIDERS: ATTEND Nurse Practitioner Family | DX: I70.298 Other atherosclerosis of native arteries of extremities, other extremity (principal) | CPT/HCPCS: 93922 ==

== ENCOUNTER → 2021-05-10 | Outpatient (CLI) | payer OTHER, MEDICAID ==
[~2021-05-10] MED LIST changes: -SULF1TAB35 PO; +SULF1TAB38 PO
[2021-05-10 08:00] LABS: BASOPHILS # (AUTO) 0.1 10^3/uL (0.0-0.1); BASOPHILS % (AUTO) 1 % (0-10); EOSINOPHILS # (AUTO) 0.2 10^3/uL (0.0-0.3); EOSINOPHILS % (AUTO) 2 % (0-10); HEMATOCRIT 37 % (40-54); HEMOGLOBIN 11.4 g/dL (13.3-17.7); LYMPHOCYTES # (AUTO) 1.5 10^3/uL (1.0-4.0); LYMPHOCYTES % (AUTO) 12 % (12-44); MEAN CORPUSCULAR HEMOGLOBIN 25 pg (25-34); MEAN CORPUSCULAR HGB CONC 31 g/dL (32-36); MEAN CORPUSCULAR VOLUME 79 fL (80-99); MEAN PLATELET VOLUME 8.5 fL (9.0-12.2); MONOCYTES # (AUTO) 0.9 10^3/uL (0.0-1.0); MONOCYTES % (AUTO) 8 % (0-12); NEUTROPHILS # (AUTO) 9.1 10^3/uL (1.8-7.8); NEUTROPHILS % (AUTO) 77 % (42-75); PLATELET COUNT 479 10^3/uL (130-400); WHITE BLOOD COUNT 11.8 10^3/uL (4.3-11.0)
[2021-05-10 08:19] LABS: ALBUMIN 4.1 GM/DL (3.2-4.5); BILIRUBIN,TOTAL 0.4 MG/DL (0.1-1.0); CALCIUM 9.5 MG/DL (8.5-10.1); CREATININE SERUM 0.94 MG/DL (0.60-1.30); POTASSIUM 4.2 MMOL/L (3.6-5.0); TOTAL PROTEIN 7.3 GM/DL (6.4-8.2)
== END ==
LOC: LAB 07:34
PROVIDERS: ATTEND Internal Medicine Cardiovascular Disease
DX: I25.5 Ischemic cardiomyopathy (principal)
CPT/HCPCS: 36415; 80053; 80162; 85025

== ENCOUNTER → 2021-11-02 | Outpatient (CLI) | payer OTHER, MEDICAID ==
--- NOTE | 2021-11-02 11:45 | Diagnostic Imaging Report ---
INDICATION: Chronic pain, M54.40 COMPARISON: Imaging from the same date as well as from 09/09/2018. TECHNIQUE: Two radiographs of the pelvis dated 11/02/2021. FINDINGS: No acute fracture or dislocation. No destructive osseous process. Mild degenerative changes within the partially visualized lower lumbar spine, including moderate disc space height loss at L5/S1 with associated anterior osteophyte formation. The sacroiliac joints and pubic symphysis appear intact. Mild degenerative changes of the bilateral hips with mild joint space narrowing and mild osteophyte formation. No definite collapse of the femoral heads. Mild background vascular calcifications. IMPRESSION: No acute osseous abnormality with [id number] degenerative changes, greatest within the partially visualized lower lumbar spine. Dictated by: Dictated on workstation # [id number]
--- NOTE | 2021-11-02 11:47 | Diagnostic Imaging Report ---
CLINICAL INDICATION: Patient with chronic low back pain. EXAM: X-ray of the lumbar spine, multiple views. COMPARISON: X-ray of the abdomen dated 09/10/2018. FINDINGS: There is no acute lumbar spine fracture or dislocation. Again seen are moderate to severely hypertrophic vertebral body spurs. There is no pars defect. There is mild facet arthropathy. There is moderate loss of disc space height at the L5-S1 level. Sacroiliac joints show no significant abnormality. IMPRESSION: Lumbar spine degenerative disease with no acute fracture or dislocation. Dictated by: Dictated on workstation # [id number]
== END ==
LOC: RAD 10:45
PROVIDERS: ATTEND Chiropractor
DX: M47.816 Spondylosis without myelopathy or radiculopathy, lumbar region (principal); M16.0 Bilateral primary osteoarthritis of hip
CPT/HCPCS: 72110; 72170

== ENCOUNTER 2023-01-01 11:44 | Outpatient (RCR) | payer MEDICARE, MEDICAID ==
[~2023-01-01] VITALS: Ht 182.9 cm; Wt 78.6 kg
[~2023-01-01 11:44] MED LIST changes: +CLOP-31 PO; -CLOP75TA69 PO; -ENAL10TA16 PO; +ENLP10T PO
[2023-01-01] MEDS ORDERED: IRON SUCROSE 200 MG/10 ML VIAL IV ONE (12:15)
[2023-01-01] MEDS ORDERED: SPIR25TA5 PO (12:56)
[2023-01-01] MEDS ORDERED: SACU1TAB7 PO (12:56)
[2023-01-01] MEDS ORDERED: FURO20TA4 PO (12:56)
[2023-01-01] MEDS ORDERED: METO50TA7 PO (12:56)
[2023-01-01] MEDS ORDERED: APIX5TAB PO (12:56)
[2023-01-01] MEDS ORDERED: POTA10CA84 PO (12:56)
[2023-01-01 13:25] VITALS: BP 106/54
== END 2023-01-03 | disposition home or self-care (01) ==
LOC: SDC 11:44
PROVIDERS: ATTEND Family Medicine
DX: D50.8 Other iron deficiency anemias (principal); R53.83 Other fatigue
CPT/HCPCS: 96365

== ENCOUNTER 2023-01-08 11:34 | Outpatient (RCR) | payer MEDICARE, MEDICAID ==
[~2023-01-08 11:34] MED LIST changes: +APIX5TAB PO; +FURO20TA4 PO; +METO50TA7 PO; +POTA10CA84 PO; +SACU1TAB7 PO; +SPIR25TA5 PO
[2023-01-08] MEDS ORDERED: IRON SUCROSE 200 MG/10 ML VIAL IV ONE (12:15)
[2023-01-08 12:21] VITALS: BP 89/47
[2023-01-08 12:52] VITALS: BP 89/47
== END 2023-02-02 | disposition home or self-care (01) ==
LOC: SDC 11:34
PROVIDERS: ATTEND Family Medicine
DX: D50.8 Other iron deficiency anemias (principal); R53.83 Other fatigue
CPT/HCPCS: 96365